=== PATIENT | female | born 1945 | race Caucasian/White ===

== ENCOUNTER 2024-12-19 10:14 | Inpatient (IN) | payer MEDICARE ==
[~2024-12-19] VITALS: Ht 172.7 cm; Wt 80.8 kg
[~2024-12-19 10:14] MED LIST: ACETAMINOPHEN650 M2 PO; ALORA1 EAC1 TD; AMITRIPTYLINE H50 MG PO; DOCUSATE SODIU250 MG PO; GABAPENTIN300 MG PO; HYDROCHLOROTHIA25 MG PO; LO-DOSE ASPIRIN81 MG PO; LOVASTATIN40 MG PO; MOTRIN800 MG PO; NIFEDIPINE ER30 MG PO; PERCOCET 5-3251 EACH PO; POTASSIUM GLUC500 MG PO; SENOKOT-S TABL1 EACH PO; SERTRALINE HCL100 MG PO; THERA-D2000 UNIT PO; VITAMIN D31000 UNI1 PO; [UNRECOGNIZED DRUG - OTHER] PO
--- OUTSIDE RECORDS SUMMARY | 2024-12-19 10:16 | XMS ---
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 [place] VISIT COUNT (12 MO.) [address] TOTAL 6 NOTE: Visits indicate total known visits. ED/UCC VISIT TRACKING (12 MO.) 12/19/2024 10:15 [facility] TYPE: Emergency COMPLAINT: - CHEST PAIN 12/19/2024 07:20 [facility] TYPE: Emergency COMPLAINT: - CHEST PAIN DIAGNOSES: - CHEST PAIN 06/09/2024 08:15 [facility] [place] TYPE: Emergency DIAGNOSES: - Elevation of levels of liver transaminase levels - Encounter for issue of repeat prescription - Fatty (change of) liver, not elsewhere classified - Other specified diseases of anus and rectum - RECTAL PAIN 06/08/2024 08:44 [facility] [place] TYPE: Emergency DIAGNOSES: - Anal fissure, unspecified - Other specified diseases of anus and rectum - stomach pain 06/04/2024 10:01 [facility] TYPE: Emergency COMPLAINT: - ABD PAIN DIAGNOSES: - ABD PAIN 02/04/2024 09:37 [facility] TYPE: Emergency DIAGNOSES: - Acute maxillary sinusitis, unspecified - COVID-19 - CONGESTION AND HEADACHE INPATIENT VISIT TRACKING (12 MO.) 06/04/2024 10:01 [facility] TYPE: Medical Surgical DIAGNOSES: - Generalized abdominal pain - Noninfective gastroenteritis and colitis, unspecified [email or web address]
[2024-12-19] MEDS ORDERED: HYDROmorphone HCL 1 MG/ML SYR IV ONE (10:30)
[2024-12-19] MEDS ORDERED: SODIUM CHLORIDE 0.9% 500 ML IV PRN (10:30)
[2024-12-19 10:36] LABS: BASOPHILS 0.4 % (0.1-1.2); EOSINOPHILS 0.2 % (0.7-5.8); LYMPHOCYTES 9.7 % (19.3-51.7); MCH 22.4 PG (25.6-32.2); MCHC 30.8 g/dL (32.2-35.5); MCV 72.8 fL (79.4-94.8); MONOCYTES 3.9 % (4.7-12.5); NEUTROPHILS 85.2 % (34.0-71.1); RBC 4.41 M/uL (3.93-5.22)
[2024-12-19 10:47] LABS: INR 1.03 (0.80-1.30); PROTIME 13.0 Sec (11.2-14.2)
[2024-12-19 10:55] LABS: ALT (SGPT) 16.0 U/L (14-59); AST (SGOT) 14.0 U/L (15-37); GLOMERULAR FILTRATION RATE,EST 52.0 mL/min (>60); PROTEIN, TOTAL 8.2 g/dL (6.4-8.2); UREA NITROGEN 18.0 mg/dL (7-18)
[2024-12-19] MEDS ORDERED: GABAPENTIN800 MG PO (11:01)
[2024-12-19] MEDS ORDERED: SEVOFLURANE 250 ML BTL INH ONE (12:00)
[2024-12-19] MEDS ORDERED: PROCHLORPERAZINE EDISYLATE 10 MG/2 ML VIAL IV ONE (12:30)
[2024-12-19] MEDS ORDERED: HYDROmorphone HCL 1 MG/ML SYR IV PRN ×3 (12:30→17:30)
[2024-12-19] MEDS ORDERED: PIPERACILLIN/TAZOBACTAM 4.5 GM in SODIUM CHLORIDE 0.9% 100 ML IV ONE (13:30)
[2024-12-19] MEDS ORDERED: DEXTROSE 5% - LACTATED RINGERS 1,000 ML IV SCH ×3 (13:30→17:30)
[2024-12-19] MEDS ORDERED: ACETAMINOPHEN 325 MG TAB PO PRN ×2 (15:00→17:30)
--- NOTE | 2024-12-19 15:45 | NUR ---
THIS RN TO ED ROOM 10 TO TRANSPORT PATIENT. REPORT RECEIVED FROM ED NURSE SON. PATIENT TRANSPORTED IN STRETCHER TO HOSPITAL FLOOR, TRANSFERS HERSELF WITH SUPERVISION ONLY INTO HOSPITAL BED. PATIENT IS STEADY ON HER FEET. IVF INFUSING TO RIGHT AC WNL. PATIENT HAS MULTIPLE FAMILY MEMBERS PRESENT. THIS RN REMAINS IN ROOM TO COMPLETE ADMISSION.
--- NOTE | 2024-12-19 16:12 | NUR ---
MD MELTON IN TO ASSESS AND VISIT PATIENT. ALL QUESTIONS AND CONCERNS ANSWERED AND ADDRESSED. THIS RN REMAINS IN ROOM FOR ADMISSION.
[2024-12-19 16:14] VITALS: BP 157/78
[2024-12-19] MEDS ORDERED: DULOXETINE HCL30 MG PO (16:19)
[2024-12-19] MEDS ORDERED: ATORVASTATIN CA40 MG PO (16:20)
--- NOTE | 2024-12-19 16:28 | NUR ---
MD PRESENT ON THE FLOOR AT THIS TIME, VERBAL TO MAKE PATIENT NPO AT MIDNIGHT, ABLE TO HAVE CLEARS AT THIS TIME. ORDERS INPUT. PRIMARY RN NOTIFIED AND UPDATED. TELEMETRY #2 PLACED ON PATIENT. FAMILY IN ROOM WITH PRIMARY RN AT THIS TIME.
--- NOTE | 2024-12-19 16:50 | NUR ---
ADMISSION COMPLETED. PATIENT'S FAMILY MEMBERS LEAVE. PATIENT REQUESTS TO USE THE RESTROOM, VOIDS IN THE BEDSIDE COMMODE AND REQUESTS A PULL-UP. PULL UP PROVIDED, PATIENT PROVIDES HER OWN LA-CARE. PATIENT IS PLACED ON TELE #2, IVF CONTINUES INFUSING TO RIGHT AC WNL - IVF PREVIOUSLY SCANNED AND HUNG IN ED. PATIENT DENIES PAIN AT THIS TIME. DENIES NAUSEA. ORIENTED TO ROOM AND CALL LIGHT AND VERBALIZES UNDERSTANDING. PATIENT RESTING QUIETLY AT THIS TIME. BED IN LOWEST POSITION.
--- NOTE | 2024-12-19 17:09 | NUR ---
INFORMED PER MANDATE RETAIL SERVICE MERCHANDISER, COLONOSCOPY SCHEDULED TOMORROW FOR 729. PRIMARY RN NOTIFIED AND UPDATED. ORDERS FOR RT UPDATED FOR INPATIENT STATUS, PT RECEIVING DILAUDID AND CONTINUOUS PULSE OXIMETRY WARRANTED.
[2024-12-19] MEDS ORDERED: MIRALAX119 GM PO (17:11)
--- NOTE | 2024-12-19 17:18 | NUR ---
MED REC COMPLETE
[2024-12-19] MEDS ORDERED: PANTOPRAZOLE SODIUM 40 MG/10 ML VIAL IV SCH (17:30)
[2024-12-19] MEDS ORDERED: ACETAMINOPHEN 650 MG SUPP PR PRN (17:30)
[2024-12-19] MEDS ORDERED: PROCHLORPERAZINE EDISYLATE 10 MG/2 ML VIAL IV PRN (17:30)
[2024-12-19] MEDS ORDERED: ENOXAPARIN SODIUM 40 MG/0.4 ML SYR SUB-Q SCH (17:39)
--- NOTE | 2024-12-19 17:41 | NUR ---
DECLARES TIME OF WITH THIS RN AND SPIRITUAL CARE PRESENT.
[2024-12-19] MEDS ORDERED: DULOXETINE HCL 30 MG CAP PO SCH (17:42)
[2024-12-19] MEDS ORDERED: ATORVASTATIN 40 MG TAB PO SCH (17:43)
[2024-12-19] MEDS ORDERED: POTASSIUM CHLORIDE 20 MEQ/15 ML CUP PO ONE (17:45)
[2024-12-19] MEDS ORDERED: POLYETHYLENE GLYCOL 3350 BOTTLE PO ONE (17:45)
--- NOTE | 2024-12-19 17:48 | NUR ---
PATIENT FAMILY MEMBERS ARRIVE AND ARE STOPPED IN DIAZ PRIOR TO ENTERING PATIENT'S ROOM. FAMILY NOTIFIED OF PATIENT'S BY THIS RN AND ORDER PICKER/ASSEMBLERMD NOTIFIED OF FAMILY ARRIVAL HE IS TRYING TO NOTIFY BY TELEPHONE. MD ENTERS ROOM WITH FAMILY AND PATIENT, EXPRESSES CONDOLENCES. FAMILY REMAINS IN ROOM WITH PATIENT.
[2024-12-19 18:06] VITALS: BP 137/57
--- NOTE | 2024-12-19 18:58 | NUR ---
PATIENT IS IN BED AND TEARFUL, REPORTS SHE IS FEELING VERY ANXIOUS. THERAPEUTIC COMMUNICATION PROVIDED. PATIENT REMAINS TEARFUL AND ANXIOUS. MD MELTON NOTIFIED AND GIVES VERBAL ORDER FOR ONE TIME DOSE OF 5MG PO DIAZEPAM. ORDER VERIFIED WITH READBACK AND PLACED.
[2024-12-19] MEDS ORDERED: diazePAM 5 MG TAB PO ONE (19:00)
--- NOTE | 2024-12-19 19:15 | NUR ---
REPORT RECEIVED FROM DAYSHIFT RN. PATIENT SITTING UP AT BEDSIDE, TEARFUL. TALKED ABOUT PLAN FOR THE NIGHT, RESPIRATIONS EVEN AND UNLABORED. CALL LIGHT IN REACH
--- NOTE | 2024-12-19 19:50 | NUR ---
PRN NAUSEA MEDICATION GIVEN PER ORDER. PATIENT DRY HEAVING AND REPORTING INCREASED NAUSEA. ASSESSMENT COMPLETE. PATIENT TO BSC AND BACK TO BED WITHOUT DIFFICULTY. PATIENT REPORTS ANXIETY IS IMPROVING. SHE DENIES ANY NEEDS, CALL LIGHT IN REACH. GIVEN FIRST BOWEL PREP BOTTLE PER ORDER.
[2024-12-19 20:32] VITALS: BP 153/78
--- NOTE | 2024-12-19 20:34 | NUR ---
DIRECT MAIL MANAGER OBTAINED VITALS AND I&O. WARM BLANKET PROVIDED. PT STATES NO FURTHER NEEDS AT THIS TIME. CALL LIGHT WITHIN REACH.
[2024-12-19] MEDS ORDERED: GABAPENTIN 400 MG CAP PO SCH (21:00)
[2024-12-19] MEDS ORDERED: NIFEdipine XL 30 MG TAB PO SCH (21:00)
[2024-12-19] MEDS ORDERED: AMITRIPTYLINE HCL 25 MG TAB PO SCH (21:00)
[2024-12-19] MEDS ORDERED: PIPERACILLIN/TAZOBACTAM 4.5 GM in SODIUM CHLORIDE 0.9% 100 ML IV SCH ×2 (22:00)
--- NOTE | 2024-12-19 22:08 | NUR ---
SCHEDULED MEDICATIONS ADMINISTERED PER ORDER. PATIENT REPORTS HER ANXIETY IS BEGINNING TO IMPROVE. RESPIRATIONS ARE EVEN AND UNLABORED. SHE IS SETTLING INTO BED. DENIES ANY OTHER NEEDS, CALL LIGHT IN REACH.
--- NOTE | 2024-12-19 23:19 | NUR ---
ROUNDED ON PATIENT, PATIENT RESTING WITH EYES CLOSED, RESPIRATIONS EVEN AND UNLABORED. IVF AND MEDICATION CONTINUING WITHOUT DIFFICULTIES. NO FURTHER NEEDS, CALL LIGHT IN REACH.
[2024-12-20] VITALS (20 sets, daily range): BP systolic 115–176; BP diastolic 43–78
--- NOTE | 2024-12-20 01:39 | NUR ---
PATIENT CONTINUING TO ATTEMPT TO FINISH BOWEL PREP BOTTLES, HAS YET TO HAVE A BOWEL MOVEMENT. ON LAST BOTTLE OF BOWEL PREP AT THIS TIME. IVF AND IV MED CONTINUING TO INFUSE WITHOUT DIFFICULTY, CONSISTENT REMINDERS TO PATIENT TO KEEP ARM STRAIGHT. VS OBTAINED AND RECORDED. INTAKE AND OUTPUT DOCUMENTED. PATIENT DENIES FURTHER NEEDS, CALL LIGHT IN REACH.
--- NOTE | 2024-12-20 02:15 | NUR ---
PATIENT RESTING, IV MEDICATION COMPLETE, IVF CONTINUING TO INFUSE PER ORDER. RESPIRATIONS EVEN AND UNLABORED. CPOX AT BEDSIDE. NO NEEDS, CALL LIGHT IN REACH
--- NOTE | 2024-12-20 04:10 | NUR ---
IN ROOM TO ASSESS PATIENT, PATIENT BOWEL TONES ACTIVE. PATIENT HAD BEEN SLEEPING, BED IS SOILED WITH BOWEL MOVEMENT. RN WOKE PATIENT, PATIENT UP TO BSC WITH PHP PROGRAMMER, BOWEL MOVEMENT LIQUID, BROWN IN COLOR. FULL BED CHANGE, NEW BRIEF, NEW SOCKS, NEW GOWN ON PATIENT. PATIENT CLEANED AND BACK IN BED. IVF CONTINUING TO INFUSE PER ORDER. PATIENT DENIES FURTHER NEEDS. CALL LIGHT IN REACH.
[2024-12-20 05:27] LABS: BASOPHILS 0.3 % (0.1-1.2); EOSINOPHILS 0.6 % (0.7-5.8); LYMPHOCYTES 11.9 % (19.3-51.7); MCH 22.2 PG (25.6-32.2); MCHC 29.5 g/dL (32.2-35.5); MCV 75.1 fL (79.4-94.8); MONOCYTES 8.9 % (4.7-12.5); NEUTROPHILS 78.2 % (34.0-71.1); RBC 3.70 M/uL (3.93-5.22)
[2024-12-20 05:42] LABS: ALT (SGPT) 20.0 U/L (14-59); AST (SGOT) 17.0 U/L (15-37); GLOMERULAR FILTRATION RATE,EST 66.0 mL/min (>60); PROTEIN, TOTAL 6.8 g/dL (6.4-8.2); UREA NITROGEN 13.0 mg/dL (7-18)
--- NOTE | 2024-12-20 05:50 | NUR ---
DIRECTOR OF CONSTRUCTION OBTAINED VITALS AND I&O. PT STATED NEED TO USE BATHROOM. DIRECTOR OF CONSTRUCTION 1PA TO BSC. PT HAD BM. DIRECTOR OF CONSTRUCTION AND RN ASSISTED PT INTO CLENA BRIEF. PT NOW BACK IN BED. PT STATES NO FURTHER NEEDS AT THIS TIME. CALL LIGHT WITHIN REACH.
--- NOTE | 2024-12-20 06:23 | NUR ---
TC TO DR. MELTON REGARDING PATIENT BOWEL PREP AND BOWEL MOVEMENT STATUS. NEW ORDERS RECEIVED. PROVIDER PLANS TO DELAY SURGERY UNTIL THIS AFTERNOON.
[2024-12-20] MEDS ORDERED: MAGNESIUM CITRATE 300 ML BTL PO ONE (06:30)
--- NOTE | 2024-12-20 07:33 | NUR ---
UR CLINICAL REVIEW: 2 MN FOR VERSALUS- PER POST OFFICE MANAGER MEETS INPT BOWEL PERFORATION WITH NEED FOR IV ABX MEDICARE FLAQUITA INPT 12/19/24 @ 3556 ORDER MATCHES REG NO AUTH REQUIRED PER MEDICARE GUIDELINES DISCHARGE TO HOME PENDING TREATMENT NEED AND COLONOSCOPY RESULTS
--- NOTE | 2024-12-20 07:40 | NUR ---
REPORT RECEIVED FROM JAYDA FITZGERALD. MEDICATION ADMINISTERED, SEE MAR. PATIENT REQUESTS USING MEL REY CNA ASSISTS.
--- NOTE | 2024-12-20 07:49 | NUR ---
PATIENT IN BED AT THIS TIME. POND SAWYER ASSISTED PATIENT TO BEDSIDE COMMODE AND RN ALIZE ASSISTED PATIENT BACK TO BED. CALL LIGHT WITHIN REACH, NO FURTHER NEEDS AT THIS TIME.
--- NOTE | 2024-12-20 07:49 | NUR ---
PATIENT WAS IN BED AT THIS TIME, AND NEEDED ASSISTANCE TO THE COMMODE, PATIENT HAD A BOWL MOVEMENT. QUARTZ ORIENTATOR ASSISTED PATIENT BACK TO BED, SHE REFUSED GOING TO HER CHAIR CAUSE SHE WASNT FEELING WELL. CALL LIGHT WITH IN REACH AND NOTHING ELSE NEEDED AT THIS TIME.
--- NOTE | 2024-12-20 08:00 | NUR ---
MEDICATION ADMINISTERED, SEE MAR. PATIENT COMPLAINS OF PAIN IN BOTH AC IVs AND BOTH ARE LEAKING. BOTH IVs REMOVED, NEW IV PLACED TO PATIENT'S LEFT WRIST. PATIENT REQUESTS USING THE BSC, VOIDS AND HAS A SMALL LIQUID BROWN BOWEL MOVEMENT. PATIENT ALMOST COMPLETED DRINKING THE MAGNESIUM CITRATE. PATIENT COMPLAINS OF MILD TAILBONE PAIN AND IS ASSISTED TO LAY ON HER LEFT SIDE IN THE BED WITH A PILLOW TUCKED BEHIND HER. PATIENT IS MILDLY TEARFUL AND REPORTS THAT SHE IS FEELING ANXIOUS AND "ABSOLUTELY EXHAUSTED". THERAPEUTIC COMMUNICATION PROVIDED. PATIENT CONTINUES SIPPING ON WATER AND MAG CITRATE AT THIS TIME. NO REQUESTS, CALL LIGHT AND PERSONAL BELONGINGS IN REACH, BSC AT BEDSIDE WITH TOILET PAPER IN EASY REACH.
--- NOTE | 2024-12-20 09:15 | NUR ---
ASSESSMENT COMPLETE. PATIENT UP TO USE BSC, REQUIRES ASSISTANCE FOR LA-CARE SHE STATES "I AM JUST GETTING WAY TOO TIRED". PRN PAIN MEDICATION ADMINISTERED FOR PATIENT'S TAILBONE PAIN AND HEADACHE. PATIENT RETURNS TO BED AND ATTEMPTS TO NAP. NO OTHER REQUESTS, CALL LIGHT AND PERSONAL BELONGINGS IN REACH.
[2024-12-20] MEDS ORDERED: METOCLOPRAMIDE HCL 10 MG/2 ML SDV IV ONE (09:30)
--- NOTE | 2024-12-20 09:33 | NUR ---
PATIENT IN BED A THIS TIME. TANISHA GABRIEL AND TANISHA REY CHANGED PATIENTS LINENS. WAFFLE MATTRESS PLACED. CALL LIGHT WITHIN REACH, NO FURTHER NEEDS AT THIS TIME.
--- NOTE | 2024-12-20 10:00 | NUR ---
INTO SEE PATIENT. PERSONAL HEALTH INFORMATION REVIEWED. PATIENT LIVES IN A HOUSE WITH 3 STEPS INTO. DENIES ANY DIFFCULTY DOING THEM. PATIENT HAS A WALKER AT HOME BUT DOES NOT USE IT YET. PATIENT DOES NOT DRIVE BUT SPOUSE DOES. SHE LIVES WITH SPOUSE NATALIE. NO OXYGEN OR CPAP. PATIENT DENIES DIFFCULTY PAYING UTLITIES OR OBTAINING. NO CM NEEDS AT THIS TIME.
--- NOTE | 2024-12-20 10:56 | NUR ---
PATIENT IN CHAIR AT THIIS TIME. THIS FINISHING RANGE FEEDER ASSISTED PATIENT TO BEDSIDE COMMODE AND THEN ASSISTED PATIENT BACK TO CHAIR. CALL LIGHT WITHIN REACH, NO FURTHER NEEDS AT THIS TIME.
--- NOTE | 2024-12-20 11:28 | NUR ---
PATIENT IS UP IN RECLINER AND HAS A VISITOR IN HER ROOM. REPORTS SHE NO LONGER HAS A HEADACHE AND THE PRN PAIN MEDICATION PREVIOUSLY ADMINISTERED WAS "VERY HELPFUL". PATIENT IS WANTING TO KNOW WHEN SHE WILL BE GETTING HER COLONOSCOPY, SHE IS LOOKING FORWARD TO GETTING IT OVER WITH. NO REQUESTS AT THIS TIME, CALL LIGHT AND PERSONAL BELONGINGS IN REACH.
--- NOTE | 2024-12-20 11:45 | NUR ---
PATIENT IN BED AT THIS TIME. LUMBER PILER ASSISTED PATIENT FROM CHAIR TO BED. CALL LIGHT WITHIN REACH, NO FURTHER NEEDS AT THIS TIME.
--- NOTE | 2024-12-20 12:29 | NUR ---
PATIENT'S IN VISITING. PATIENT USES RESTROOM AND HAS MEDIUM AMOUNT OF BROWN LIQUID STOOL. ALL LIQUIDS REMOVED AT THIS TIME. PATIENT AMBULATES WITH SUPERVISION ONLY AND RETURNS TO BED. NO OTHER REQUESTS, CALL LIGHT AND PERSONAL BELONGINGS IN REACH.
--- NOTE | 2024-12-20 12:53 | NUR ---
MD MELTON UPDATED ON PATIENT'S STOOL AND CONSENT STILL NEEDING TO BE FILLED OUT AND SIGNED. VERBALIZES UNDERSTANDING.
--- NOTE | 2024-12-20 13:35 | NUR ---
PER ANESTHESIOLOGY - MD KATIUSKA INFORMED THAT THE SOONEST HE WOULD DO SURGERY WAS 1445, PT HAD BEEN SIPPING ON HER MG CITRATE STILL ON/OFF. INFORMED VIA PHONE OF THE PLAN. PRIMARY RN NOTIFIED UPDATED.
--- NOTE | 2024-12-20 14:16 | NUR ---
PATIENT AMBULATES TO RESTROOM AND HAS LIQUID STOOL, PROVIDES HER OWN LA-CARE AND CHANGES HER PULL-UP. PATIENT'S ARRIVES AND BRINGS PATIENT HER GLASSES AND HER TABLET WITH DAIRY TECHNICIAN. PATIENT AMBULATES BACK TO BED. VS AND I&Os RECORDED. MEDICATION ADMINISTERED, SEE MAR. PATIENT HAS NO COMPLAINTS OF PAIN OR DISCOMFORT AT THIS TIME. CALL LIGHT AND PERSONAL BELONGINGS IN REACH.
[2024-12-20] MEDS ORDERED: LIDOCAINE HCL 2% 5 ML SDV ONE (14:51)
--- NOTE | 2024-12-20 15:14 | NUR ---
MD MELTON COMPLETES CONSENT WITH PATIENT IN HER ROOM. PATIENT AMBULATES TO STRETCHER WITH CHILANGO, SURGERY RN. PATIENT IS NOW OFF THE FLOOR AT THIS TIME.
[2024-12-20] MEDS ORDERED: GLUCAGON,HUMAN RECOMBINANT 1 MG/ML VIAL ONE (15:29)
--- NOTE | 2024-12-20 16:16 | NUR ---
12/20/24 1616 Trinity Rangel 1558-PT ARRIVES TO PACU, VIA STRETCHER, PT NOT RESPONISVE TO VERBAL OR TACTILE STIMULI, RESTING ON LT SIDE, VSS ON 6L VIA MASK, RR EVEN AND UNLABORED. 1608-PT AWAKENS ON, TITRATED TO RA, VS REMAIN STABLE, PT DENIES PAIN OR NAUSEA, PT ENCOURAGED TO PASS GAS.
[2024-12-20] MEDS ORDERED: POTASSIUM CHLORIDE 20 MEQ/15 ML CUP PO ONE (16:30)
[2024-12-20] MEDS ORDERED: LACTATED RINGER'S 1,000 ML IV SCH (16:30)
--- NOTE | 2024-12-20 16:42 | NUR ---
PATIENT RETURNS FROM COLONOSCOPY ON STRETCHER, PATIENT ASSISTED TO SHUFFLE FROM STRETCHER TO HOSPITAL BED. VS OBTAINED. PATIENT REQUESTS BSC, PATIENT VOIDS AND HAS SMALL LIQUID STOOL. PATIENT DOES HER OWN LA-CARE, PULL-UP PROVIDED. PATIENT RETURNS TO BED. CPOX PLACED. IVF INFUSING WNL. CALL LIGHT IN REACH, PATIENT DENIES PAIN OR NAUSEA AND HAS NO REQUESTS AT THIS TIME.
[2024-12-20] MEDS ORDERED: FUROSEMIDE 20 MG/2 ML VIAL IV ONE ×2 (16:45→20:15)
[2024-12-20 17:27] LABS: ABO O; RH POSITIVE
[2024-12-20 17:38] LABS: ABO O; ANTIBODY SCREEN NEGATIVE; IS CROSSMATCH COMPATIBLE; RH POSITIVE
--- NOTE | 2024-12-20 17:38 | NUR ---
VS OBTAINED. PATIENT IS RESTING IN BED, REPORTS SHE IS FEELING COLD. WARM BLANKET PROVIDED. PATIENT EXPRESSES FEELING NERVOUS REGARDING GETTING BLOOD. EDUCATION AND THERAPEUTIC COMMUNICATION PROVIDED. PATIENT PROVIDED WITH OJ AND COFFEE REQUESTED. CALL LIGHT IN REACH, NO OTHER REQUESTS.
--- NOTE | 2024-12-20 18:02 | NUR ---
FIRST UNIT OF PACKED RED CELLS BEGINS INFUSING AT 1800. SECOND CHECK COMPLETED WITH JAYAD BEDOYA. PATIENT RESTING IN BED WITH BLOOD INFUSING TO RIGHT HAND, IVF AND IV ABX INFUSING INTO RIGHT FOREARM. THIS RN REMAINS IN ROOM.
--- NOTE | 2024-12-20 18:15 | NUR ---
15 MINUTE VS OBTAINED AND RECORDED. PATIENT RESTING IN BED LISTENING TO MUSIC, NO COMPLAINTS, NO REACTION AT THIS TIME. INFUSION RATE INCREASED TO 140ML/HR. PATIENT HAS NO REQUESTS AT THIS TIME, CALL LIGHT AND PERSONAL BELONGINGS IN REACH.
--- NOTE | 2024-12-20 18:42 | NUR ---
PATIENT USES BSC, VOIDS, AND PROVIDES HER OWN LA-CARE. PATIENT HAS FRIEND VISITING AT THIS TIME. NO COMPLAINTS. TRANSFUSION RATE INCREASED TO 170ML/HR. PATIENT TOLERATING WELL. NO REQUESTS, CALL LIGHT AND PERSONAL BELONGINGS IN REACH.
--- NOTE | 2024-12-20 19:10 | NUR ---
REPORT RECEIVED FROM DAYSVTFT RN. PATIENT RESTING IN BED, VISITNG WITH FRIEND. RESPIRATIONS ARE EVEN AND UNLABORED. IVF CONTINUING TO INFUSE PER ORDER, 1ST UNIT OF BLOOD INFUSING WITHOUT DIFFICULTY, DOUBLE CHECKED WITH JAYDA HERRMANN. PATIENT REPORTS SHE HAS NO NEEDS AT THIS TIME. CALL LIGHT IN REACH.
--- NOTE | 2024-12-20 19:30 | NUR ---
IV PUMP ALARMING, RN WALKED INTO ROOM, PATIENT BEING ASSISTED ON THE COMMODE BY JAYDA BEDOYA. THIS RN ASSISTED PATIENT BACK TO BED. VS OBTAINED AND RECORDED. SETTLED INTO BED. RESPIRATIONS EVEN AND UNLABORED. PATIENT DENIES ANY NEEDS, CALL LIGHT IN REACH.
--- NOTE | 2024-12-20 20:10 | NUR ---
CALL LIGHT ANSWERED. PT NEEDED TO USE BATHROOM. B OPERATOR SBA TO BSC. PT VOIDED AND ASSISTED BACK TO BED. PT STATES NO FURTHER NEEDS AT THIS TIME. CALL LIGHT WITHIN REACH.
[2024-12-20] MEDS ORDERED: POTASSIUM CHLORIDE 20 MEQ in LACTATED RINGER'S 1,000 ML IV SCH (20:15)
[2024-12-20] MEDS ORDERED: POTASSIUM CHLORIDE 10 MEQ in LACTATED RINGER'S 1,000 ML IV SCH ×2 (20:15→20:30)
--- NOTE | 2024-12-20 20:28 | NUR ---
1ST UNIT OF BLOOD COMPLETE AT THIS TIME VS OBTAINED. PATIENT RESTING IN BED COMFORTABLY WITH SO AT BEDSIDE. IV SALINE LOCKED. UP TO BSC PER REQUEST. RESPIRATIONS EVEN AND UNLABORED. BACK TO BED WITHOUT DIFFICULTY. CALL LIGHT IN REACH.
--- NOTE | 2024-12-20 21:32 | NUR ---
PATIENT UP TO BSC. GIVEN SCHEDULED MEDS PER ORDER. VS OBTAINED AND RECORDED. INTAKE AND OUTPUT DOCUMENTED. PATIENT DENIES SOB, DENIES CHILLS. REQUESTING PRN TYLENOL FOR HEADACHE. SHE STATES NO FURTHER NEEDS AT THIS TIME, CALL LIGHT IN REACH.
--- NOTE | 2024-12-20 22:20 | NUR ---
PT C/O PAIN, HEADACHE, ABDOMEN AND BUTTOCKS. MEDICATED WITH TYLENOL
--- NOTE | 2024-12-20 23:09 | NUR ---
2ND UNIT OF PRBC STARTED PER ORDER. VS OBTAINED AND RECORDED PRIOR TO START. BLOOD VERIFIED WITH KIRK Julio RN. RESPIRATIONS ARE EVEN AND UNLABORED. RN SITTING AT BEDSIDE WITH PATIENT.
--- NOTE | 2024-12-20 23:48 | NUR ---
ROUNDED ON PATIENT, PATIENT RESTING, RESPIRATIONS EVEN AND UNLABORED. WOKE TO RN ENTERING ROOM, REPORTS SHE IS FEELING WELL WITH NO COMPLAINTS OF SOB OR CHEST PAIN. DENIES DIZZINESS. BLOOD INFUSION CONTINUING TO INFUSE. CALL LIGHT IN REACH.
[2024-12-21] VITALS (10 sets, daily range): BP systolic 99–141; BP diastolic 53–85
--- NOTE | 2024-12-21 00:37 | NUR ---
CALL LIGHT ANSWERED. PT NEEDED TO USE BATHROOM. HEALTH NAVIGATOR SBA TO BSC. PT VOIDED AND ASSISTED BACK TO BED. PT STATES NO FURTHER NEEDS AT THIS TIME. CALL LIGHT WITHIN REACH.
--- NOTE | 2024-12-21 01:08 | NUR ---
ROUNDED ON PATIENT, IV INFUSIONS CONTINUING TO INFUSE WITHOUT DIFFICULTY. RESPIRATIONS EVEN AND UNLABORED. PATIENT RESTING WITH EYES CLOSED. NO NEEDS IDENTIFIED, CALL LIGHT IN REACH
--- NOTE | 2024-12-21 01:51 | NUR ---
BLOOD INFUSION COMPLETE AT 0140. VS OBTAINED AND RECORDED. PATIENT ASSISTED UP TO BSC WITH ASSISTANCE OF FOOD SERVICE SALES REPRESENTATIVES. PATIENT REPORTS SHE IS FEELING WELL WITH NO COMPLAINTS. BACK TO BED WITHOUT DIFFICULTY. IV FLUSHED AND SALINE LOCKED. PATIENT NPO, VERBALIZED UNDERSTANDING. CALL LIGHT IN REACH.
[2024-12-21 05:25] LABS: BASOPHILS 0.4 % (0.1-1.2); EOSINOPHILS 1.5 % (0.7-5.8); LYMPHOCYTES 21.1 % (19.3-51.7); MCH 23.7 PG (25.6-32.2); MCHC 31.0 g/dL (32.2-35.5); MCV 76.5 fL (79.4-94.8); MONOCYTES 6.9 % (4.7-12.5); NEUTROPHILS 69.8 % (34.0-71.1); RBC 4.93 M/uL (3.93-5.22)
[2024-12-21 05:37] LABS: GLOMERULAR FILTRATION RATE,EST 59.0 mL/min (>60); UREA NITROGEN 4.0 mg/dL (7-18)
--- NOTE | 2024-12-21 06:02 | NUR ---
SURGICAL WIPE DOWN COMPLETE, FRESH GOWN AND LINENS ON BED AND ON PATIENT. SCHEDULED MEDICATION ADMINISTERED PER ORDER. BOWEL TONES ACTIVE. PATIENT DECLINES ANY NEEDS, VOIDED WHILE UP USING BSC. CALL LIGHT IN REACH. IVF CONTINUING TO INFUSE PER ORDER. NO FURTHER NEEDS, CALL LIGHT IN REACH
--- NOTE | 2024-12-21 07:14 | NUR ---
Pt report received from JAYDA Perales. Pt is A&O, resting supine in bed. Pt states she is "nervous". White board updated. Pt denies needs at this time. Side rails up x3, call light in reach. IV Zosyn and IVF running.
[2024-12-21] MEDS ORDERED: ACETAMINOPHEN 1,000 MG/100 ML VIAL ONE (07:44)
[2024-12-21] MEDS ORDERED: SUCCINYLCHOLINE IN 0.9% NACL 200 MG/10 ML SYRINGE ONE (07:44)
[2024-12-21] MEDS ORDERED: ROCURONIUM BROMIDE 50 MG/5 ML SYR ONE ×2 (07:44→09:49)
[2024-12-21] MEDS ORDERED: LIDOCAINE HCL 2% 20 MG/ML VIAL INJ ONE (07:44)
[2024-12-21] MEDS ORDERED: SUGAMMADEX SODIUM 200 MG/2 ML ML ONE (07:44)
[2024-12-21] MEDS ORDERED: MAGNESIUM SULFATE 1 GM/2 ML VIAL ONE (07:44)
[2024-12-21] MEDS ORDERED: DEXAMETHASONE SOD PHOS 4 MG/ML VIAL ONE ×4 (07:44→13:53)
[2024-12-21] MEDS ORDERED: fentaNYL citrate 100 MCG/2 ML VIAL ONE (07:44)
[2024-12-21] MEDS ORDERED: LIDOCAINE HCL 2% 5 ML SDV ONE ×2 (07:44→13:55)
[2024-12-21] MEDS ORDERED: KETAMINE in NS 50 MG/5 ML SYR ONE (07:45)
--- NOTE | 2024-12-21 07:49 | NUR ---
PATIENT IN BED AT THIS TIME. JAYDA PEARSON IN PATIENTS ROOM AT THIS TIME GETTING PATIENT READY FOR SURGERY. COMPUTER FORENSICS ANALYST CHARTED HOURLY ROUNDS. CALL LIGHT WITHIN REACH, NO FURTHER NEEDS AT THIS TIME.
--- NOTE | 2024-12-21 08:00 | NUR ---
In with pt in response to call light to use the BSC. Pt is SBA, RN disconnected SCDs, pt transferred, SBA to BSC for small liquid/soft BM and void (unable to measure as it was mixed in the hat with stool). Pt back to bed, SCDs reconnected. Side rails up, call light in reach.
--- NOTE | 2024-12-21 08:05 | NUR ---
RN X RAY and Braulio from anesthesia in with pt to transfer pt to Day Surgery at this time.
[2024-12-21] MEDS ORDERED: NOREPINEPHRINE BITARTRATE 4 MG/4 ML AMP ONE (08:29)
[2024-12-21] MEDS ORDERED: HEParin SOD (PORCINE) 5,000 UNIT/ML SDV ONE (08:44)
[2024-12-21] MEDS ORDERED: LACTATED RINGER'S 1,000 ML IV ONE (08:57)
--- NOTE | 2024-12-21 10:05 | NUR ---
Pt's family members are in room. Update from OR provided.
[2024-12-21] MEDS ORDERED: SODIUM CHLORIDE 0.9% 20 ML IV ONE ×4 (11:05→13:53)
[2024-12-21] MEDS ORDERED: Ropivacaine HCl 0.5% 30 ML VIAL ONE ×3 (11:05→13:53)
--- NOTE | 2024-12-21 11:27 | EKG ---
[facility] [address] [place], [place] [address] Signed Sinus rhythm with premature supraventricular complexes Nonspecific ST abnormality Abnormal ECG No previous ECGs available Confirmed by Kaitlyn Buck MD ([id number]) on 12/21/2024 11:27:32 AM Electronically Signed By: KAITLYN BUCK MD 12/21/24 1127 PATIENT NAME: AKTERYNA HANDLEY Electrocardiogram DATE OF : 47 PHYSICIAN: KAITLYN BUCK MD REPORT #: [id number] REPORT IS CONFIDENTIAL AND NOT TO BE RELEASED WITHOUT AUTHORIZATION
[2024-12-21] MEDS ORDERED: KETOROLAC TROMETHAMINE 30 MG/ML VIAL ONE (11:35)
[2024-12-21] MEDS ORDERED: fentaNYL citrate 50 MCG/ML SDV IV PRN (11:45)
[2024-12-21] MEDS ORDERED: PROCHLORPERAZINE EDISYLATE 10 MG/2 ML VIAL IV PRN (11:45)
[2024-12-21] MEDS ORDERED: HYDROmorphone HCL 1 MG/ML SYR IV PRN (11:45)
[2024-12-21] MEDS ORDERED: IBLOOD GLUCOSE TEST STRIP 1 EA TEST VI PRN (11:45)
[2024-12-21] MEDS ORDERED: NALOXONE HCL 0.4 MG SYR IV PRN (11:45)
[2024-12-21] MEDS ORDERED: KETOROLAC TROMETHAMINE 15 MG/ML VIAL IV PRN (12:30)
--- NOTE | 2024-12-21 13:00 | NUR ---
REPORT RECIEVED FROM JAYDA PEARSON. PATIENT REMAINS OFF THE FLOOR IN SURGERY AT THIS TIME.
--- NOTE | 2024-12-21 13:13 | NUR ---
12/21/24 1313 Trinity Rangle 1219-PT ARRIVES TO PACU, VIA STRETCHER, RESTING SEMI FOWLERS, PT NOT RESPONSIVE TO NOXIOUS STIMULI, OPA IN PLACE, VSS ON 6L VIA MASK, RR EVEN AND UNLABORED. 1229-PT REACTIVE TO STIMULI, OPA REMAINS IN PLACE, VSS. 1231-PT AWAKENS TO TACTILE AND VERBAL STIMULI, OPA REMOVED AND TITRATED TO RA, VS REMAIN STABLE. 1245-PT APPEARS TO BE UNCONFORTABLE DENIES ABD PAIN AT SURGICAL SIGHT, C/O PAIN AND IRRITATION AT NG IN LT NARE. PT ALSO C/O NAUSEA. 1250-PT GIVEN IV MEDICATION FOR PAIN AND NAUSEA, SEE EMAR. 1300-PT RESTING COMFORTABLY IN BED, AWAKENS TO VOICE BUT FALLS BACK TO SLEEP EASILY, DENIES PAIN OR NAUSEA, VSS ON RA.
[2024-12-21] MEDS ORDERED: MORPHINE SULFATE 1 MG/ML VIAL ONE (13:19)
--- NOTE | 2024-12-21 14:18 | NUR ---
REPORT RECIEVED FROM JAYDA HUSAIN. PATIENT REPORTING 10/10 PAIN.
--- NOTE | 2024-12-21 15:05 | NUR ---
PT RESTING IN BED, DROWSY PAIN /10, PT REPORTS PAIN IS TOLERABLE. PT O2 SATS DROP TO 85-87% ON RA WHILE DOZING. PT PLACED ON 1LNC, SATS MAINTAINED AT 90-91%. NO NEW DRAINAGE ON ABDOMINAL BINDER. NGT TO LIS, RETURN OF CLEAR BROWN FLUID.
--- NOTE | 2024-12-21 16:39 | NUR ---
PATIENT IN BED AT THIS TIME. CARD TENDER CHARTED HOURLY ROUNDS, PATIENT SLEEPING IN BED. CALL LIGHT WITHIN REACH, NO FURTHER NEEDS AT THIS TIME.
--- NOTE | 2024-12-21 16:55 | NUR ---
DR MELTON CALLED FOR ORDER CLARIFICATION. STATES TO KEEP WOLFE IN PATIENT AT THIS TIME, NG TUBE TO INTERMITTENT MEDIUM SUCTION, OKAY FOR SIPS OF WATER FOR PO MEDS, 500MG TYLENOL Q4 SCHEDULED THROUGH NG TUBE, KEEP NG TUBE CLAMPED FOR 1 HOUR AFTER MEDICATION ADMINISTRATION, START D5LR WITH 10 MEQ KCL @ 100ML/HR. WITH NO FURTHER ORDERS AT THIS TIME. CALL ENDED. [employer] REP ASSISTED WITH CEMETERY LABORER.
[2024-12-21] MEDS ORDERED: LACTATED RINGERS IV SCH (17:15)
[2024-12-21] MEDS ORDERED: DEXTROSE 5% IV SCH (17:15)
[2024-12-21] MEDS ORDERED: POTASSIUM CHLORIDE IV SCH (17:15)
[2024-12-21] MEDS ORDERED: ATORVASTATIN 40 MG TAB PO SCH (17:34)
[2024-12-21] MEDS ORDERED: DULOXETINE HCL 30 MG CAP PO SCH (17:35)
--- NOTE | 2024-12-21 17:55 | NUR ---
PATIENT MEDICATED PER EMAR. MEDS WERE VERIFIED WITH PHARMACY AND WERE ABLE TO BE CRUSHED. MEDS ADMINISTERED THROUGH NG TUBE. NG TUBE FLUSHED WITH 40ML OF WATER AND CLAMPED FOR ABSORPTION. IV FLUSHED WITH 10ML OF NS, DRESSING IS INTACT, IV SALINE LOCKED. LEFT WRIST IV CONTINUOUS FLUIDS @ 100ML/HR. PATIENT WITHOUT FURTHER NEEDS AT THIS TIME. CALL LIGHT AND PERSONAL BELONGINGS ARE WITHIN REACH. CPOX AT BEDSIDE.
[2024-12-21] MEDS ORDERED: ACETAMINOPHEN 500 MG TAB PO SCH (18:00)
--- NOTE | 2024-12-21 18:55 | NUR ---
PATIENT NG TUBE PLACED BACK ON SUCTION TO LOW INTERMITTENT PER MD ORDERS. PATIENT REPORTING PAIN INCREASING. BELT GLASS SANDER RN NOTIFIED. PATIENT WITHOUT FURTHER NEEDS AT THIS TIME. CALL LIGHT AND PERSONAL BELONGINGS ARE WITHIN REACH. CPOX AT BEDSIDE.
--- NOTE | 2024-12-21 19:46 | NUR ---
RECEIVED REPORT. GIVEN PRN DILAUDID 0.6MG FOR 8/10 PAIN. NO OTHER NEEDS PRESENTLY.
--- NOTE | 2024-12-21 21:43 | NUR ---
ASSESSMENT, EVENING MEDS. ASSISTED PT WITH BED LINEN CHANGE, PT FEELS DIAPHORETIC. NGT SUCTION PAUSED AFTER MEDS GIVEN. PT REQUESTS CRACKERS, REMINDED OF NPO STATUS. NO OTHER NEEDS, CALL [facility] IN REACH
--- NOTE | 2024-12-21 22:14 | NUR ---
PATIENT IS LAYING IN BED. CATHETER WAS EMPTIED. JAYDA HOLLIS WAS IN ROOM. PATIENTS CALL LIGHT IN REACH AND NO FURTHER NEEDS AT THIS TIME.
--- NOTE | 2024-12-21 23:01 | NUR ---
ATTACHED NGT BACK TO MODERATE INTERMITTENT SUCTION PER ORDER. PT AROUSES, THOUGH EASILY BACK TO SLEEP. NO NEEDS, CALL LIGHT IN REACH
[2024-12-22] VITALS (11 sets, daily range): BP systolic 119–163; BP diastolic 51–98
--- NOTE | 2024-12-22 00:02 | NUR ---
PT RESTING IN BED WITH EYES CLSOED, RISE AND FALL OF CHEST OBSERVED. CALL LIGHT IN REACH
--- NOTE | 2024-12-22 02:38 | NUR ---
PATIENT LAYING IN BED. VITAL SIGNS AND I&OS WERE DONE. PATIENTS GOWN WAS CHANGED. CALL LIGHT IN REACH AND NO FURTHER NEEDS AT THIS TIME.
--- NOTE | 2024-12-22 02:44 | NUR ---
PT ALERT IN BED, DENIES NEEDS FOR NOW. CALL [facility] INREACH
--- NOTE | 2024-12-22 04:12 | NUR ---
PT CALLED IN 04/11 PAIN, SHE REPORTS CAME ON VERY SUDDENLY. GIVEN AVAILABLE PRNS WELL ABBI TYLENOL SHE EARLIER DECLINED. GIVEN ICE PACKS. NO NEW OBSERVED BLEEDING/DRAINAGE. CALL LIGHT IN REACH
--- NOTE | 2024-12-22 04:25 | NUR ---
NOTIFIED MD OF PAIN, GIVEN ORDERS FOR ONE-TIME DOSE OF DILAUDID IV AND ABBI XANAX 0.25MG PO
[2024-12-22] MEDS ORDERED: HYDROmorphone HCL 1 MG/ML SYR IV ONE (04:30)
--- NOTE | 2024-12-22 05:10 | NUR ---
VITALS, GIVEN ABBI ABX AND ONE-TIME DILAUDID DOSE. PT REPORTS PAIN IMPROVING AFTER DOSE. NO OTHER NEEDS, CALL LIGHT IN REACH
[2024-12-22] MEDS ORDERED: ALPRAZolam 0.5 MG TAB PO SCH (06:00)
--- NOTE | 2024-12-22 07:38 | NUR ---
PT AWAKE AND INTERACTIVE AT TIME OF SHIFT REPORT. NG RE-CONNECTED AFTER MEDS. PT AGREES SHE IS COMFORTABLE, DENIES NEEDS OF. 02 TURNED OFF PT CONTINUES TO SAT MID 90'S OXY MASK REMOVED. CALL LIGHT AND NEEDED ITEMS AT BEDSIDE
--- NOTE | 2024-12-22 09:13 | NUR ---
PT RESTING IN BED C/O INCREASEING ABDOMINAL PAIN PRN ADMINISTERED. PT IS SOMEWHAT TEARFUL STATES SHE IS A CRY BABY AND GETS ANXIETY. PT ENCOURAGED THAT SHE HAS MEDS SCHEDULED THROUGHOUT THE DAY FOR THAT. ENGAUGES IN CONVERSATION REDIRECTS EASILY.
--- NOTE | 2024-12-22 09:22 | NUR ---
PT IN BED, REPORTED BEING COLD - GOT PT THREE WARM BLANKETS TO REPLACE THE THREE SHE ALREADY HAD. GOT PT FRESH ICE PACK FOR ABDOMINAL SURGICAL SITE. PT REQUESTED PILLOW TO HOLD ONTO WHEN SHE COUGHS - GOT IT. HELD PT'S HAND WHILE PT'S NURSE GAVE BLOOD THINNER SHOT, PT WAS QUITE EMOTIONAL, SPENT A LOT OF TIME TALKING TO HER AT BEDSIDE. CALL LIGHT WITHIN REACH, PT REPORTED NEEDING NOTHING ELSE AT THIS TIME. LEFT ROOM WHILE PT WAS ON THE PHONE WITH SON.
--- NOTE | 2024-12-22 10:37 | NUR ---
DR MELTON IN TO SEE PT, SON IS PRESENT. PLAN GOING FORWARD DISCUSSED ALL QUESTIONS ANSWERED.
[2024-12-22] MEDS ORDERED: Ropivacaine HCl 0.5% 30 ML VIAL ONE (11:10)
[2024-12-22] MEDS ORDERED: LIDOCAINE HCL 2% 5 ML SDV ONE (11:10)
[2024-12-22] MEDS ORDERED: SODIUM CHLORIDE 0.9% 20 ML IV ONE (11:10)
[2024-12-22] MEDS ORDERED: DEXAMETHASONE SOD PHOS 4 MG/ML VIAL ONE (11:10)
--- NOTE | 2024-12-22 11:29 | NUR ---
ANESTHESIA IS PRESENT DOING A BLOCK FOR PT PAIN CONTROL. FAMILY ARE PRESENT
--- NOTE | 2024-12-22 14:32 | NUR ---
PT UP TO BSC ENCOURAGED AMBULATION WHILE SHE IS ALREADY UP SHE DECLINES, STATES SHE JUST CAN'T.
--- NOTE | 2024-12-22 15:01 | NUR ---
PT CRYING IN PAIN WHEN I ENTERED. I GOT PT'S NURSE. GOT PT A FRESH ICE PACK FOR HER STOMACH. GOT PT WARM BLANKETS. CALL LIGHT WITHIN REACH, PT IS NPO.
--- NOTE | 2024-12-22 15:01 | NUR ---
PT RESTING IN BED AGREES PAIN MEDS WERE EFFECTIVE DENIES NEEDS
--- NOTE | 2024-12-22 15:18 | NUR ---
PT MEDICATED FOR PAIN STATES IT WAS EFFECTIVE. RESTING CALMLY AT THIS TIME DENIES NEEDS OF
--- NOTE | 2024-12-22 18:18 | NUR ---
PT CALLED THE NURSES STATION SAYING SHE IS IN PAIN. I TOLD THE CHARGE NURSE WHO TOLD PT'S NURSE. REFRESHED THE ICE PACK THE PT HAS ON STOMACH. CALL LIGHT WITHIN REACH. PT IN PAIN AND EMOTIONAL.
--- NOTE | 2024-12-22 18:27 | NUR ---
PT AGREES HER ABDOMEN STILL HURTS DESCRIBES IT SHARP AND CONSTANT, SHE STATES THE DIAUDID IS EFFECTIVE BUT TOOK AWHILE TO GET TO WORKING. PT IS VISITING ACTIVELY AT THIS TIME HAS ICE ON HER ABDOMEN AND DENIES NEEDS OF
--- NOTE | 2024-12-22 19:13 | NUR ---
RECEIVED REPORT. PT ALERT IN BED, REPORTS PAIN IS IMPROVED FROM YESTERDAY THOUGH STILL PRESENT. NO NEEDS PRESENTLY. NGT TO MIS. CALL [facility] IN REACH
--- NOTE | 2024-12-22 21:12 | NUR ---
KEEPING CPOX ON PATIENT RECEIVING PAIN MEDS.
--- NOTE | 2024-12-22 21:15 | NUR ---
VITALS, ASSESSMENT, EVENING MEDS. GIVEN PRN DILAUDID. NO OTEHR NEEDS, CALL LGIHT IN REACH
--- NOTE | 2024-12-22 23:34 | NUR ---
GIVEN PRN DILAUDID, CHANGED BED LINENS, REMOVED R IV D/T LEAKING. REPLACED IV FLUID BAG. NO OTHER NEEDS, CALL LIGHT INREACH
[2024-12-23] VITALS (9 sets, daily range): BP systolic 157–179; BP diastolic 69–75
--- NOTE | 2024-12-23 01:33 | NUR ---
GIVEN PRN DILAUDID AND ABBI TYLENOL. CHANGED LINENS AND GOWN AT PT REQUEST. NO OTHER NEEDS, CALL LIGHT IN REACH
[2024-12-23] MEDS ORDERED: LIDOCAINE 2% VISCOUS 6 ML SYR TOP ONE (01:45)
--- NOTE | 2024-12-23 03:54 | NUR ---
PT SLEEPING, THOUGH QUICKLY ROUSABLE. GIVEN PRN DILAUDID FOR 5/10 ABD PAIN. PT NOTES SOME ITCHING AT INCISION SITE, INCISION APPEARS WELL. REASSURED THAT ITCHING CAN BE AN EXPECTED SIGN OF SKIN HEALING. NO OTHER NEEDS, CALL LIGHT IN REACH
--- NOTE | 2024-12-23 04:10 | NUR ---
RESPONDED TO BEEPING CPOX, OBSERVED SPO2 DOWN TO 77%, THEN BACK UP TO 92% ON RA. APPLIED 2LNC, SPO2 AT 99%. NO OTHER NEEDS, CALL LIGHT INREACH
[2024-12-23 05:39] LABS: BASOPHILS 0.2 % (0.1-1.2); EOSINOPHILS 0.1 % (0.7-5.8); LYMPHOCYTES 17.4 % (19.3-51.7); MCH 23.7 PG (25.6-32.2); MCHC 30.5 g/dL (32.2-35.5); MCV 77.7 fL (79.4-94.8); MONOCYTES 5.8 % (4.7-12.5); NEUTROPHILS 76.3 % (34.0-71.1); RBC 4.35 M/uL (3.93-5.22)
[2024-12-23 05:48] LABS: GLOMERULAR FILTRATION RATE,EST 70.0 mL/min (>60); UREA NITROGEN 9.0 mg/dL (7-18)
--- NOTE | 2024-12-23 05:53 | NUR ---
PT CRYING IN 1010 PAIN. GIVEN PRN DILAUDID IV WELL AM MEDS. PAIN BEGINNING TO IMPROVE WHILE IN ROOM. SPICE MILLER IN ROOM TAKING VITALS. NO OTHER NEEDS, CALL LIGHT IN REACH
--- NOTE | 2024-12-23 06:22 | NUR ---
PT RESTING WITH EYES CLOSED, RISE AND FALL OF CHEST OBSERVED. CALL LIGHT IN REACH
--- NOTE | 2024-12-23 06:59 | NUR ---
PT REQUESTS ADDITIONAL PAIN MEDICATION. GIVEN PRN TORADOL TO GOOD EFFECT. NO OTHER NEEDS, CALL LIGHT IN REACH
--- NOTE | 2024-12-23 07:21 | NUR ---
PT RESTING IN BED WATCHING TV AT TIME OF SHIFT REPORT. RATES HER PAIN 12/10 STATING "IT'S NOT TOO BAD WHILE I'M LAYING HERE STILL" AGREES SHE WANTS DILAUDID WHEN IT IS AVAILABLE TO HER. CONTINUES NPO NG TO DOROTHY.
--- NOTE | 2024-12-23 09:06 | NUR ---
STAFF REPORT PT IS TEARFUL AND C/O PAIN. PT RESTING SUPINE DISTRACTS EASILY WITH CONVERSATION. REMAINED IN THE ROOM CHARTING AND VISITING WITH PT 15 MINUTES OR MORE, NO FURTHER C/O. DISCUSSED WITH PT WHEN NEXT MEDS WILL BE GIVEN AND SHE AGREES THAT WILL WORK FOR HER.
--- NOTE | 2024-12-23 09:38 | NUR ---
PT RESTING EYES CLOSED APPEARS RELAXED CALL LIGHT IN REACH
--- NOTE | 2024-12-23 09:57 | NUR ---
HOURLY ROUNDING. PATIENT ROOM IS TIDY AND A TOWEL HAS BEEN GIVEN TO WIPE PATIENT FACE. NO REQUEST FROM PATIENT AT THIS TIME. BOARD HAS BEEN UPDATED AND CALL LIGHT HAS BEEN PLACED WITHIN REACH
--- NOTE | 2024-12-23 10:21 | NUR ---
DR MELTON IN TO SEE PT DISCUSSED PLAN OF CARE ALL QUESTIONS ANSWERED
--- NOTE | 2024-12-23 11:08 | NUR ---
PT SON IN TO VISIT SHE IS VISITING ACTIVELY DENIES NEEDS AT THIS TIME
--- NOTE | 2024-12-23 12:03 | NUR ---
HOURLY ROUNDING. PATIENT APPEARED TO BE HOT, I OFFERED HER FAN, FAN WAS GIVEN. NO FURTHER REQUEST FROM PATIENT AT THIS TIME
--- NOTE | 2024-12-23 14:54 | NUR ---
PT UP TO THE CHAIR, SITTING UPRIGHT DECKLINES TO RECLINE. AGREES SHE IS REASONALBLY COMFORTABLE DENIES FURTHER NEEDS. CALL LIGHT IN LAP
[2024-12-23] MEDS ORDERED: GABAPENTIN 400 MG CAP PO SCH (15:00)
--- NOTE | 2024-12-23 15:16 | NUR ---
PT CONTINUES UP IN THE CHAIR VISITING WITH A FRIEND APPEARS UPBEAT AND TALKATIVE. HAIR SHAMPOO'D AND COMBED BY STAFF
--- NOTE | 2024-12-23 15:24 | NUR ---
I/S INTRODUCED PT IS ABLE TO USE IT APPROPRIATELY WITH COACHING. AGREES TO USE IT FREQUENTLY THROUGHOUT THE DAY
--- NOTE | 2024-12-23 16:34 | NUR ---
PT RETURNS TO RESTING IN BED AGREES TIME IN THE CHAIR WAS GOOD BUT STATES IT MADE HER VERY TIRED.
--- NOTE | 2024-12-23 18:07 | NUR ---
PT IV ALARMING WAKING PT UP SHE BECOMES TEARFUL THEN C/O PAIN. PAIN MEDS ADMINISTERED STAYED AND TALKED WITH PT SHE DISTRACTS AND BEGINS ENGAUGING IN CONVERSATION AND LAUGHING. PT RESTING NOW DENIES FURTHER NEEDS.
--- NOTE | 2024-12-23 19:36 | NUR ---
RECEIVED REPORT. PT RESTING IN BED, WAKES EASILY. HOB FLAT, EDUCATED PT ABOUT NEED FOR ELEVATION D/T NG TUBE. PT REPORTS HER ARTHRITIS IN HER BACK MAKES THIS DIFFICULT. PUT BED IN REVERSE TRANDELENBERG SO HOB IS ELEVATED WITHOUT BENDING BACK. NO OTHER NEEDS PRESENTLY, CALL LIGHT IN REACH
--- NOTE | 2024-12-23 20:02 | NUR ---
VITALS, ASSESSMENT. GIVEN PRN TORODOL AND DILAUDID FOR 9/10 PAIN WELL ABBI MEDS. PAIN IMPROVING WHILE IN ROOM. NO NEEDS PRESENTLY, CALL JAD RAMON
--- NOTE | 2024-12-23 21:09 | NUR ---
REATTACHED NGT AFTER MEDS DELIVERED 1 HOUR AGO. PT REPORTS PAIN SIGNIFICANTLY IMPROVING, STILL 6/10. DECLINES NEEDS FOR NOW. CALL LIGHT IN REACH
--- NOTE | 2024-12-23 22:24 | NUR ---
GIVEN PRN DILAUDID FOR 10/10 PAIN. PT REPORTS PAIN HAD MILDLY IMPROVED TO 9/10 AFTER ALL PREVIOUS MEDS GIVEN, BUT HAS SINCE WORN OFF. PT ALSO UNABLE TO SWALLOW NIFEDIPIME. CALL LIGHT IN REACH
--- NOTE | 2024-12-23 22:32 | NUR ---
CALLED MD, INFORMED OF PT 9-04/11 PAIN FOLLOWING ALL AVAILABLE MEDICATIONS AND PRN DILAUDID EVERY 2 HOURS CONSISTENTLY. INFORMED MD THAT PAIN CONTROL IS WORSE TONIGHT, PT HAD A NERVE BLOCK YESTERDAY BUT NOT TODAY. ALSO ALERTED THAT PT UNABLE TO SWALLOW NIFEDIPIME. ORDER FOR ONE-TIME DOSE OF XANAX 0.25MG WELL CHLOROPREP SPRAY.
[2024-12-23] MEDS ORDERED: LIDOCAINE HCL 4% 50 ML BTL TOP PRN (22:45)
[2024-12-23] MEDS ORDERED: ALPRAZolam 0.5 MG TAB PO ONE (22:45)
--- NOTE | 2024-12-23 23:19 | NUR ---
GIVEN ONE-TIME DOSE XANAX 0.25MG PER ORDER. PT REPORTS PAIN MILDLY IMPROVED, CURRENTLY 02/09. STILL NOT ABLE TO SWALLOW MEDS. APPLIED ICE PACK TO [facility]BDOMEN. [facility]
[2024-12-23] MEDS ORDERED: phenoL 177 ML SPRAY MT PRN (23:30)
[2024-12-24] VITALS (7 sets, daily range): BP systolic 148–182; BP diastolic 72–94
--- NOTE | 2024-12-24 00:41 | NUR ---
GIVEN PRN DILAUDID WELL CHLOROPREP THROAT SPRAY. REATTACHED NGT AFTER HOLDING FOR PO MEDS. PT REPORTS PAIN AT 8/10. STILL DECLINES NIFEDIPIME. GIVEN WARM BLANKETS, CALL LIGHT IN REACH
--- NOTE | 2024-12-24 02:21 | NUR ---
PT WITH 10/10 PAIN, CRYING "I DON'T KNOW WHAT TO DO, I DON'T KNOW WHAT TO DO". GIVEN PRN DILAUDID, TORADOL, AND ABBI TYLENOL. CALL LIGHT IN REACH
--- NOTE | 2024-12-24 02:30 | NUR ---
NOTIFIED MD OF 10/10 PAIN UNCONTROLLED WITH CURRENT PAIN REGIMEN AND PT IS CRYING AUDIBLY, HEARD IN HALLWAY. ORDER FOR ATIVAN IV 1MG ONCE AND LIDOCAINE PATCH.
[2024-12-24] MEDS ORDERED: LORazepam 2 MG/ML VIAL IV ONE (02:45)
[2024-12-24] MEDS ORDERED: LIDOCAINE HCL 4% 1 EACH PATCH TD SCH (02:45)
--- NOTE | 2024-12-24 02:58 | NUR ---
GIVEN IV 1MG ATIVAN ONCE AND APPLIED LIDOCAINE PATCH. PT STATES "I JUST DON'T KNOW WHY THIS IS HAPPENING TO ME. I FEEL LIKE GIVING UP.". PROVIDED THERAPEUTIC LISTENING, VALIDATED PT PAIN, AND REASSURED. RE-APPLIED NGT TO SUCTION. CALL LIGHT IN REACH
--- NOTE | 2024-12-24 03:03 | NUR ---
PT DESATTING TO 87 AFTER IV ATIVAN, THOUGH STILL ALERT. APPLIED OXYMAX 2L, SPOT UP TO 96%.
--- NOTE | 2024-12-24 04:22 | NUR ---
GIVEN PRN IV DILAUDID 0.6MG FOR 8/10 PAIN. NO OTHER NEEDS, CALL LIGHT IN REACH
--- NOTE | 2024-12-24 06:34 | NUR ---
VITALS, I&OS, AM MEDS INCLUDING PRN DILAUDID FOR 8/10 PAIN. PT ALERT, MILDLY SLOW TO RESPOND BUT STILL ORIENTED X4, LIKELY FROM LACK OF SLEEP + PREVIOUS ATIVAN. NO NEEDS, CALL LIGHT IN REACH
--- NOTE | 2024-12-24 07:34 | NUR ---
REPORT RECEIVED FROM JAYDA HOLLIS. PT REPORTEDLY UP MOST OF THE NIGHT WITH POOR PAIN CONTROL.
--- NOTE | 2024-12-24 09:18 | NUR ---
PT NOW UNABLE TO SWALLOW PILLS. CHOKED AFTER TWICE TRYING WITH COACHING. PT FEELING DEFEATED AND DOWN THIS MORNING. RATES PAIN HIGH. WASHED FACE AND HANDS WITH WARM CLOTH. FAN IN PLACE. NG OFF ATT, WAS ABLE TO SWALLOW ONE TAB.
--- NOTE | 2024-12-24 09:53 | NUR ---
IN BED, TEARFUL. STATES HER MOUTH/THROAT ARE VERY SORE. WILL RETURN TO SPEAK WITH PATIENT WHEN SHE IS FEELING A LITTLE BETTER. WHEN ASKED, STATES SHE HAS NOTIFIED NURSING STAFF OF PAIN.
--- NOTE | 2024-12-24 11:33 | NUR ---
CALLED DR KELLY REGARDING CONCERNS OF PAIN CONTROL, BP AND NO BT.
[2024-12-24] MEDS ORDERED: HYDROmorphone HCL 1 MG/ML SYR IV PRN (11:45)
[2024-12-24] MEDS ORDERED: DIATRIZOATE MEGLU/DIATRIZO SOD 15 ML BTL PO ONE ×2 (12:00→13:00)
--- NOTE | 2024-12-24 12:26 | NUR ---
PT CRYING IN PAIN. ADMININSTERED DILAUDID PER ORDER AND VERBAL FROM DR KELLY TO GO AHEAD AND START NEW DOSE NOW. PT FACE VISIBLY RELAXED. VS OBTAINED AND BP IS IMPROVED FROM EARLIER TODAY.
--- NOTE | 2024-12-24 12:46 | NUR ---
GASTROGRAFIN ADMINISTERED THROUGH NG TUBE. PT TOLERATED. NG CLAMPED. PT APPEARS MORE COMFORTABLE AFTER SECOND DOSE OF PRN PAIN MED.
--- NOTE | 2024-12-24 13:20 | NUR ---
PATIENT OFF THE FLOOR TO IMAGING FOR CT SCAN.
--- NOTE | 2024-12-24 14:13 | NUR ---
PT BACK FROM CT, JAYDA LEVY HOOKED BACK TO NG AND IV. REPORTS PT PAINFUL.
--- NOTE | 2024-12-24 14:48 | NUR ---
HOURLY ROUNDING. PATIENT VISITING WITH FRIEND. PATIENT SEEMS MORE RELAX WHEN SHE HAS A VISITOR. VISTOR ENCOURAGED SLEEP TO PATIENT. NO REQUEST FROM PATIENT AT THIS TIME. CALL LIGHT HAS BEEN PLACED WITHIN REACH
[2024-12-24] MEDS ORDERED: ACETAMINOPHEN 1,000 MG/100 ML VIAL IV PRN (15:00)
--- NOTE | 2024-12-24 16:43 | NUR ---
pt significant other in room on couch. PT APPEARS MORE COMFORTABLE. TRYING TO NAP.
[2024-12-24] MEDS ORDERED: LABETALOL HCL 20 MG/4 ML VIAL IV PRN (17:00)
[2024-12-24] MEDS ORDERED: LORazepam 2 MG/ML VIAL IV PRN (17:00)
--- NOTE | 2024-12-24 18:30 | NUR ---
WOLFE REMOVED AND PT UP TO COMMODE 20 MINUTES LATER TO TRY TO PEE. UNABLE TO GO. PT VERY PAINFUL. GIVEN OFIRMEV AND DILAUDID. CHANGED NOSE PIECE ON NG TUBE.
--- NOTE | 2024-12-24 18:34 | NUR ---
BEDDING CHANGED WHILE ON COMMODE.
--- NOTE | 2024-12-24 19:41 | NUR ---
RECEIVED REPORT. PT RESTING IN BED, EASILY WAKES WHEN ENTER ROOM. PROVIDED WARM BLANKETS, NO OTHER NEEDS PRESENTLY. CALL LIGHT INREACH
[2024-12-24] MEDS ORDERED: LIDOCAINE PATCH REMOVAL 1 EA TD SCH (21:00)
--- NOTE | 2024-12-24 21:06 | NUR ---
PT HEARD CRYING FROM HALLWAY. PT IN 04/11 PAIN. GIVEN PRN ATIVAN AND DILAUDID, PT WITH VISIBLE RELIEF FROM PAIN WHILE IN ROOM. EVENING MEDS GIVEN EXCEPT NIFEDIPIME, PT UNABLE TO SWALLOW. VITALS TAKEN, ASSESSMENT. [facility]
--- NOTE | 2024-12-24 22:45 | NUR ---
PT IN BED WTIH EYES CLOSED, RISE AND FALL OF CHEST OBSERVED. CALL LIGHT IN REACH
--- NOTE | 2024-12-24 23:27 | NUR ---
PT RESTING IN BED WITH EYES CLOSED, RISE AND FALL OF CHEST OBSERVED, CALL LIGHT IN REACH
--- NOTE | 2024-12-24 23:39 | NUR ---
RESPONDED TO AUDIBLE MOANING. PT IN 01/09 PAIN. GIVEN PRN TORODOL AND ICE PACK. NO OTHER NEEDS, CALL LIGHT IN REACH
[2024-12-25] VITALS (10 sets, daily range): BP systolic 145–185; BP diastolic 71–90
--- NOTE | 2024-12-25 01:05 | NUR ---
PT RESTING IN BED WITH EYES CLOSED, RISE AND FALL OF CHEST OBSERVED. CALL LIGHT INREACH
--- NOTE | 2024-12-25 01:39 | NUR ---
GIVEN PRN ATIVAN FOR ANXIETY. PT MILDLY DISORIENTED, FORGETFUL OF TIME, DATE, AND PLACE, BUT QUICKLY REORIENTED AND CORRECTLY ID'D SELF AND SITUATION. DENIES CURRENT PAIN. CALL LIGHT IN REACH
--- NOTE | 2024-12-25 03:31 | NUR ---
PT WITH BLADDER SCAN OF 306ML. GIVEN PRN DILAUDID 1.5MG, THEN TRANSFERRED PT TO BEDSIDE COMMODE 2PA. PT PAIN QUICKLY UP T0 10/10 DESPITE PAIN MEDICATION, PT UNABLE TO STAND AND DOUBLED OVER IN PAIN. BROUGHT BACK TO BED WITH 2PA. STARTED IV ACETAMINOPHEN. CALL LGT IN REACH
--- NOTE | 2024-12-25 04:10 | NUR ---
NOTIFIED PT UNABLE TO VOID. ORDER FOR STRAIGHT CATH.
[2024-12-25] MEDS ORDERED: LIDOCAINE 2% VISCOUS 6 ML SYR TOP ONE ×2 (04:15→13:45)
[2024-12-25 05:19] LABS: BASOPHILS 0.6 % (0.1-1.2); EOSINOPHILS 4.7 % (0.7-5.8); LYMPHOCYTES 21.4 % (19.3-51.7); MCH 23.7 PG (25.6-32.2); MCHC 30.4 g/dL (32.2-35.5); MCV 78.1 fL (79.4-94.8); MONOCYTES 5.9 % (4.7-12.5); NEUTROPHILS 67.1 % (34.0-71.1); RBC 4.93 M/uL (3.93-5.22)
[2024-12-25 05:30] LABS: GLOMERULAR FILTRATION RATE,EST 58.0 mL/min (>60); UREA NITROGEN 9.0 mg/dL (7-18)
--- NOTE | 2024-12-25 05:40 | NUR ---
GIVEN PRN ATIVAN, THEN PERFORMED INTERMITTENT CATHETER FOR 500ML VOLUME. PT WITH NO OUTPUT SINCE 1800 PRIOR. PT VERY TEARY. CULTURE MANAGER ASSISTED WITH PT POSITIONING. CALL LIGHT IN REACH
--- NOTE | 2024-12-25 06:57 | NUR ---
RESPONDED TO PT CRYING OUT IN PAIN, GIVEN PRN TORODOL TO GOOD EFFECT. [facility]
--- NOTE | 2024-12-25 07:43 | NUR ---
Patient in bed moaning, she reports she is very painful. Admin dilaudid 1.5mg iv at this time. IV site is patent. Patient has an NG, patent, notable dark green gastric content. Patient denies passing flatus, no nausea. Patient's head of bed elevated. Bed alarm intact.
[2024-12-25] MEDS ORDERED: POTASSIUM CHLORIDE 40 MEQ,LIDOCAINE HCL 1% 40 MG in DEXTROSE 5% 250 ML IV ONE (08:30)
--- NOTE | 2024-12-25 08:49 | NUR ---
Ativan 1mg iv admin at this time for anxiety. Patient repositioned with supervisor irrigation assist.
--- NOTE | 2024-12-25 09:10 | NUR ---
TOOK VITALS FOR PT'S NURSE WHO WAS IN THE ROOM. GOT PT WARM BLANKET, PT SPOKE VERY LITTLE. CALL LIGHT WITHIN REACH.
--- NOTE | 2024-12-25 10:37 | NUR ---
RYAN from Dr. Morales to change ativan dose to 0.5mg, no change to frequency.
[2024-12-25] MEDS ORDERED: LORazepam 2 MG/ML VIAL IV PRN (10:45)
--- NOTE | 2024-12-25 11:39 | NUR ---
PT HAD NOT URINATED FOR OVER 6 HOURS - WE ATTEMPTED A BEDPAN, THE PT DID NOT URINATE, THE PT'S NURSE PERFORMED A BLADDER SCAN, APPROX. 240 ML URINE FROM THE SCAN - NURSE REPORTED TO PHYSICIAN. CHANGED THE SHEETS/DRAW SHEET/DRISS UNDER PT. REPOSITIONED PT TOWARD THE RIGHT RIDE, GOT PT WARM PACK FOR LOWER ABDOMEN AREA. CALL LIGHT WITHIN REACH OF PT. TWO VISITORS IN PT'S ROOM. NURSE AND METAL BONDING WORKER LEFT ROOM AFTER TURNING DOWN THE LIGHTS.
--- NOTE | 2024-12-25 13:35 | NUR ---
Patient unable to void. Bedside bladder scan is 475ml. Patient is confused. Touched base with Dr. Morales-marissa orders for urine to be sent r/o uti and to place indwelling adam catheter for urine retention.
--- NOTE | 2024-12-25 14:11 | NUR ---
Adam catheter placed using sterile technique. Immediate return of clear yellow urine in adam bag. Patient has no further acute needs. Call light within reach.
--- NOTE | 2024-12-25 14:19 | NUR ---
WASHED PT'S FACE, HGANDS AND LA AREA - FOLLOWING THE INSERTION, BY HER NURSE, OF A NEW WOLFE. COMFORT CARE FOR THE PT.
[2024-12-25 14:20] LABS: BLOOD/HGB, URINE NEGATIVE (Negative); KETONE, URINE NEGATIVE (Negative); LEUK ESTERASE, URINE NEGATIVE (negative); NITRITE, URINE NEGATIVE (negative)
--- NOTE | 2024-12-25 14:26 | NUR ---
THIS VITAL READING WAS TAKEN ABOUT 15 MINUTES FOLLOWING THE WOLFE INSERTION BY THE PT'S NURSE. PT HAD A PARTIAL BED BATH AND WAS MORE RELAXED. CALL LIGHT WITHIN REACH, PATIENT HAS EYES CLOSED AND LOOKS RELAXED.
[2024-12-25 14:35] LABS: BACTERIA, URINE RARE /hpf (negative); CRYSTALS, URINE NONE SEEN (0-1+); EPITHELIAL CELLS, URINE SQUAMOUS 1+ /lpf (0-1+)
[2024-12-25 14:36] LABS: CASTS, URINE NONE SEEN \\lpf; REFLEX CULTURE, URINE No (No)
--- NOTE | 2024-12-25 15:54 | NUR ---
PRN PAIN MEDICATION ADMINISTERED, SEE MAR. PO MEDICATION ADMINISTERED VIA NG TUBE WITH 60ML FLUSH OF WATER. PATIENT HAS CONTINUOUS MOAN AND GROAN WITH CONSTANT GRIMACE. IV MEDICATIONS INFUSING WNL TO LEFT FOREARM. CALL LIGHT IN REACH. BED IN LOWEST POSITION.
--- NOTE | 2024-12-25 16:08 | NUR ---
Patient in bed resting, she intermittently wakes and moans. Patient is verbalizing she is painful, alert to self only. Patient has family at bedside visiting. Plan of care udpated with patient and family.
--- NOTE | 2024-12-25 17:40 | NUR ---
Patient reports abdominal pain, she is unable to provide pain scale level. Admin dilaudid 1.5mg iv at this time. NG remains intact/patent, MIWS, contined green gastric drainage. IV remains patent. Abdomen is soft to touch.
--- NOTE | 2024-12-25 18:12 | NUR ---
PT IS AWAKE, BUT MOANING AND SPEAKING BUT NOT MAKING SENSE WITH HER WORDS. PT IS NPO. PT HAS THE TV ON. CALL LIGHT IS WITHIN REACH. PT REPORTS NOT NEEDING ANYTHING ELSE AT THIS TIME.
--- NOTE | 2024-12-25 18:16 | NUR ---
CHANGED PT'S BLANKETS AND TOP SHEET. REPOSITIONED PT A LITTLE, MORE WEIGHT ON RIGHT SIDE. GOT PT HEAT PACK FOR MIDDLE/LOWER ABDOMEN - WRAPPED IT IN A TOWEL AND PLACED IT ON TOP OF PT'S GOWN.
--- NOTE | 2024-12-25 18:28 | NUR ---
THIS RESTAURANT MANAG[employer] INTER[employer]IP EMPTIED THE PT'S NG CONTAINER AFTER DOCUMENTING OUTPUT. THIS RESTAURANT MANA[employer] INTER[employer] EMPTIED THE PT'S GARBAGE AND CLEANED UP HER ROOM, MOVED HER GLASSES AND TV REMOTE TO WITHIN PT'S REACH. CALL LIGHT WITHIN REACH WELL.
--- NOTE | 2024-12-25 19:35 | NUR ---
PATIENT RESTING IN BED. RESPIRATIONS EVEN AND UNLABORED. BED ALARM ON. CALL LIGHT IN REACH.
--- NOTE | 2024-12-25 22:16 | NUR ---
PATIENT HEARD CRYING FROM ROOM. THIS RN AND DIRECTOR PLANS TO ROOM. PATIENT STATES SHE IS PAINFUL BUT UNABLE TO TELL THIS RN WHERE THE PAIN IS. PRN PAIN MEDICATION ADMINISTERED. PATIENT STILL CRYING IN ROOM. PATIENT UNABLE TO TELL THIS RN WHY SHE IS CRYING. THIS RN ASKED PATIENT IF SHE WAS HAVING ANXIETY. PATIENT STATED "YES". WHEN THIS RN LEFT THE ROOM, THE PATIEN TOLD DIRECTOR PLANS DANIELA THAT SHE WAS SCARED. THIS RN ASKED PATIENT IF SHE REMEMBERED WHERE SHE WAS, PATIENT NOT ABLE TO TELL THIS RN WHERE SHE IS. PATIENT UNABLE TO STATE NAME AND . PRN ANXIETY MEDICATION ADMINISTERED. VS AND I&Os OBTIANED AND RECORDED. SCHEDULED MEDICATIONS ADMINISTERED VIA NG TUBE. NG TUBE CLAMPED AT THIS TIME. PATIENT APPEARS TO BE COMFORTABLE AT THIS TIME. WARM BLANKETS PROVIDED. BED ALARM ON. SCDs IN PLACE. ASSESSMENT COMPLETE. ABD BINDER IN PLACE. NO FURTHER NEEDS. CALL LIGHT IN REACH.
--- NOTE | 2024-12-25 23:32 | NUR ---
PATIENT HEARD CRYING OUT FROM ROOM. THIS RN TO ROOM. THIS RN ASKED IF PATIENT WAS PAINFUL AND PATIENT STATED "YES" BUT UNABLE TO TELL THIS RN WHERE SHE WAS PAINFUL. THIS RN ASKED PATIENT "IS IT YOUR TUMMY?" PATIENT STATED "YES". PRN PAIN MEDICATION ADMINISTERED. PATIENT APPEARS MORE RELAXED AFTER PAIN MEDICATION. CPOX REMAINS IN PLACE. NO FURTHER NEEDS. BED ALARM ON. CALL LIGHT IN REACH.
[2024-12-26] VITALS (9 sets, daily range): BP systolic 148–179; BP diastolic 75–87
--- NOTE | 2024-12-26 00:25 | NUR ---
THIS RN ROUNDING ON PATIENT. PATIENT RESTING IN BED, APPEARS COMFORTABLE AND SNORING. 02 SAT 95% ON RA. NO FURTHER NEEDS. BED ALARM ON. CALL LIGHT IN REACH.
--- NOTE | 2024-12-26 02:24 | NUR ---
PATIENT HEARD CRYING IN ROOM. PATIENT UNABLE TO TELL THIS RN WHAT IS WRONG. PATIENT ONLY CRYING AND MOANING IN BED. THIS RN ASKED IF PAITENT WAS IN PAIN AND PATIENT STATED "YES". PRN PAIN MEDICATION ADMINISTERED. PATIENT REPOSITIONED IN BED WITH PILLOWS UNDER BILAT HIPS. THIS RN AND SR. MANAGER CORPORATE COMMUNICATIONS TRIED TO OBTAINED PATIENT BP, BUT PATIENT NOT COOPERATING AND THIS MADE PATIENT APPEAR EXTREMELY ANXIOUS. VS AND I&Os OBTAINED AND RECORDED, WITHOUT BP. TELE REMAINS IN PLACE. ABD BINDER REMAINS IN PLACE. NO DRAINAGE FROM ABD INSICION NOTED. PATIENT APPEARS TO BE MORE COMFORTABLE AFTER PAIN MEDICATION ADMINISTRATION. PATIENT RESTING WITH EYES CLOSED. RESPIRATIONS EVEN AND UNLABORED. CALL LIGHT IN REACH.
[2024-12-26 05:25] LABS: BASOPHILS 0.4 % (0.1-1.2); EOSINOPHILS 5.4 % (0.7-5.8); LYMPHOCYTES 20.1 % (19.3-51.7); MCH 24.0 PG (25.6-32.2); MCHC 30.4 g/dL (32.2-35.5); MCV 78.9 fL (79.4-94.8); MONOCYTES 5.2 % (4.7-12.5); NEUTROPHILS 68.4 % (34.0-71.1); RBC 5.21 M/uL (3.93-5.22)
[2024-12-26 05:36] LABS: GLOMERULAR FILTRATION RATE,EST 70.0 mL/min (>60); UREA NITROGEN 10.0 mg/dL (7-18)
--- NOTE | 2024-12-26 06:24 | NUR ---
PATIENT RESTING IN BED, MOANING IN PAIN. PRN PAIN MEDICATION ADMINISTERED. PATIENT UNABLE TO TELL ME WHERE HER PAIN IS LOCATED. VS AND I&Os OBTIANED AND RECORDED. WOLFE CATH CARE PROVIDED PER PROTOCOL. PATIENT HAS NO FURTHER NEEDS AT THIS TIME. CALL LIGHT IN REACH. BED ALARM ON.
--- NOTE | 2024-12-26 07:30 | NUR ---
RECIEVED REPORT FROM JAYDA MARTIN. PT AWAKE, MOANING IN BED. THIS RN ATTEMPTS TO ASSESS PAIN LEVEL WITH PT, PT DOES NOT STATE LEVEL OF PAIN OR LOCATION. PT STATES "YES" WHEN ASKED IF HAVING PAIN. PT ROLLED TO SIDE, ABDOMINAL BINDER REPOSITIONED, LIDOCAINE PATCH PLACED. PT SAT UP >45 DEGREES, PT ANSWERS "YES" WHEN ASKED IF SHE CAN TAKE HER PO MEDICATIONS. PO MEDICATIONS GIVEN, PT SWALLOWS ONCE WITH WATER, AFTER THIS PT REFUSES TO DRINK WATER, STATES "NO" WHEN ASKED TO DRINK WATER AND SWALLOW PILLS. TWO PO MEDICATIONS REMAIN IN PT'S MOUTH AT THIS POINT, THIS RN ATTEMPTS TO USE SUCTION TO REMOVE MEDICATION FROM PT MOUTH, MEDICATION DISOLVING AT THIS TIME AND UNABLE TO BE SUCTIONED. TUBE AND MANIFOLD BUILDER UPDATED, AGREES TO ALLOW MEDICATION TO DISOLVE IN PT MOUTH PT HEAD IS ELEVATED AND AIRWAY IS NOT OBSTRUCTED. CLOTHS ROLLED AND GIVEN TO PT PT HAS HANDS CLENCHED SHUT. NO FURTHER NEEDS OBSERVED AT THIS TIME, CALL LIGHT WITHIN REACH. BED ALARM ON FOR SAFETY.
--- NOTE | 2024-12-26 08:12 | NUR ---
entered pt's room, changed white board. nurses were trying to medicate pt. call light within reach of pt.
--- NOTE | 2024-12-26 08:20 | NUR ---
SPIRITUAL CARE STAFF AT THE BEDSIDE. CALL LIGHT WITHIN REACH, BED ALARM ON FOR SAFETY.
--- NOTE | 2024-12-26 08:45 | NUR ---
TALKED WITH MATEUS PATIENT COUSIN ([phone]) HERE TO VISIT PATIENT.
[2024-12-26] MEDS ORDERED: MAGNESIUM SULFATE 2 GM/50 ML BAG IV ONE (09:00)
--- NOTE | 2024-12-26 09:15 | NUR ---
IMAGING CALLS THIS RN TO COME TO CT ROOM TO ASSIST WITH PT. THIS RN TO CT ROOM WITH PT. PT HAD JUST HAD EMESIS, THIS RN RECONNECTS NGT TO WALL SUCTION. IMAGING COMPLETE AT THIS TIME, PT BEING TRANSFERRED BACK TO MED/SURG UNIT BY JAYDA PENALOZA AND FRANK RT.
--- NOTE | 2024-12-26 10:29 | NUR ---
PT RETURNED FROM CT WITH VOMIT ON HER GOWN - THIS SALES SYSTEMS ENGINEER WITH THE HELP OFG A VISITING COUSIN CHANGED HER GOWN, WASHED HER FACE AND NECK, AND CHANGED THE DRISS AND DRAW SHEET UNDER PT. THE PT'S NURSE HAD GIVEN PAIN MEDICATION PRIOR AND PT REPORTED DECREASED PAIN LEVEL CURRENTLY. PT WAS HOOKED UP TO ALL MONITORS AND LEG COMPRESSION DEVICES. CALL LIGHT ON BED WITH PT, PT RESTING CURRENTLY, COUSIN IN ROOM, TV ON.
--- NOTE | 2024-12-26 10:33 | NUR ---
Visited twice since 0800. Steffany not very communicative. Lots of moaning and unsettled body movements. Nurses have been most attentive. Prayed over her and offered words of comfort and strength and healing.
--- NOTE | 2024-12-26 10:46 | NUR ---
NGT TO WALL SUCTION PER ORDER. FAMILY AT THE BEDSIDE. NO CURRENT NEEDS IDENTIFIED. PT ANSWERING YES/NO QUESTIONS AT THIS TIME. CALL LIGHT WITHIN REACH, BED ALARMS ON FOR SAFETY.
--- NOTE | 2024-12-26 11:05 | NUR ---
MD AT THE BEDSIDE DISCUSSING POC WITH PT AND FAMILY. PT STATES "NO" WHEN ASKED IF SHE HAS ANY CURRENT NEEDS. CALL LIGHT WITHIN REACH, BED ALARM ON FOR SAFETY.
[2024-12-26] MEDS ORDERED: LORazepam 2 MG/ML VIAL IV PRN (11:30)
--- NOTE | 2024-12-26 12:35 | NUR ---
DR. KELLY TO BEDSIDE TO DISCUSS POC WITH PT. MD STATES TO CLAMP NGT FOR 4 HOURS AND IF NO NAUSEA THEN DC NGT. PT STATES SHE HAS MINIMAL PAIN, STATES "YES" WHEN ASKED IF ANXIOUS, PT REQUESTS PRN ANXIETY MEDICATION AT THIS TIME, GIVEN. PT STATES "NO" WHEN ASKED IF SHE HAS ANY FURTHER NEEDS AT THIS TIME, CALL LIGHT WITHIN REACH, BED ALARM ON FOR SAFETY.
--- NOTE | 2024-12-26 12:47 | NUR ---
PT IN BED, THE NURSE JUST GAVE PT A MEDICATION FOR ANXIETY. CAME IN AND DISCONNECTED THE NG TUBE, TOLD THE PT THAT IF SHE DOES NOT VOMIT THEN HE CAN TAKE THE NG TUBE OUT - PT SMILED. PT REPORTED NO PAIN IN HER ABDOMEN WHEN THE DOCTOR ASKED. PT ALSO REPORTED TO THIS FIBROUS PLASTERER THAT SHE HAD NO PAIN ON A SCALE OF 0-10. VITALS TAKEN, CHANNEL ON TV CHANGED TO 70'S MUSIC. CALL LIGHT WITHIN REACH OF PT, BED ALARM ON.
--- NOTE | 2024-12-26 13:19 | NUR ---
PT DENIES NAUSEA AT THIS TIME, NO NEEDS STATED AT THIS TIME, CALL LIGHT WITHIN REACH.
--- NOTE | 2024-12-26 14:49 | NUR ---
INTO SEE PATIENT. PATIENT MOANS WHEN I ENTER THE ROOM. LET PATIENT KNOW I WOULD BE CALLING HER SPOUSE. PATIENT AGREEABLE. TALKED WITH ESTRADA SPOUSE STATES HE WILL COME GET HER WHEN SHE IS MEDICALLY CLEARED FOR DISCHARGE. HE STATES HES BEEN DEALING WITH CHRONIC PAIN AND UNABLE TO MAKE IT UP HERE. NO FUTHER CM NEEDS AT THIS TIME.
--- NOTE | 2024-12-26 15:37 | NUR ---
PT DENIES ANY NAUSEA AT THIS TIME. PO MEDICATION GIVEN THROUGH NGT. NGT REMAINS CLAMPED PER ORDER. PT FAMILY AT THE BEDSIDE. PT STATES "NO" WHEN ASKED IF THERE ARE ANY NEEDS AT THIS TIME, CALL LIGHT WITHIN REACH, BED ALARM ON FOR SAFETY.
--- NOTE | 2024-12-26 16:35 | NUR ---
PT DENIES NAUSEA, STATES PAIN IS DECREASED TO 4/10. NG TUBE DC'D PER ORDER PT HAS HAD NG CLAMPED FOR THE PAST 4 HOURS W/O DIFFICULTY. PT REPOSITIONED AND TURNED ONTO LEFT SIDE, PT STATES PAIN HAS INCREASED, DOES NOT STATE NUMBER. PT REQUESTS NEXT AVAILABLE PAIN MEDICATION. CALL LIGHT WITHIN REACH, BED ALARM ON FOR SAFETY.
--- NOTE | 2024-12-26 16:46 | NUR ---
THIS RN CALLS DR. CROCKER REGARDING PT'S PAIN LEVEL INCREASING WITH CARE, MD STATES TO ORDER OFIRMEV IV 1G Q8 PRN. ORDER ENTERED, REPEAT BACK PERFORMED.
[2024-12-26] MEDS ORDERED: ACETAMINOPHEN 1,000 MG/100 ML VIAL IV PRN (17:00)
--- NOTE | 2024-12-26 19:25 | NUR ---
REPORT RECEIVED FROM DAY SHIFT RN. PATIENT RESTING IN BED. RESPIRATIONS EVEN AND UNLABORED. CALL LIGHT IN REACH.
--- NOTE | 2024-12-26 20:30 | NUR ---
PATIENT RESTING IN BED, CRYING. PATIENT APPEARS PAINFUL. PRN PAIN MEDICATION ADMINISTERED. PATIENT REPOSITIONED IN BED. VS AND I&Os OBTAINED AND RECORDED. STUFFED ANIMAL GIVEN TO PATIENT FOR COMFORT. PATIENT HAS NO FURTHER NEEDS. CALL LIGHT IN REACH. BED ALARM ON.
--- NOTE | 2024-12-26 20:52 | NUR ---
PATIENT NOT WILLING TO TRY TO DRINK WATER AT THIS TIME. PATIENT REFUSING. CALL PLACED TO MD CROCKER REGARDING PATIENT NOT ABLE TO TOLERATE SCHEDULED PO MEDICATION. STATED IT IS OK TO HOLD PO MEDICATION. NO NEW ORDERS.
--- NOTE | 2024-12-26 23:06 | NUR ---
PATIENT RESTING IN BED WITH EYES CLOSED. RESPIRATIONS EVEN AND UNLABORED. PATIENT APPEARS COMFORTABLE AT THIS TIME. SCHEDULED IV ABX INFUSING PER ORDER. NEW BAG IV FLUID INFUSING PER ORDER. NO FURTHER NEEDS. CALL LIGHT IN REACH. ABD BINDER IN PLACE.
[2024-12-27] VITALS (11 sets, daily range): BP systolic 138–172; BP diastolic 45–145
--- NOTE | 2024-12-27 00:43 | NUR ---
PATIENT RESTING IN BED, WITH EYES CLOSED. RESPIRATIONS EVEN AND UNLABORED. PRN MEDICATION ADMINISTERED FOR PATIENT COMFORT. NO FURTHER NEEDS. CALL LIGHT IN REACH. BED ALARM ON.
--- NOTE | 2024-12-27 02:22 | NUR ---
PATIENT HEARD FROM ROOM, MOANING/CRYING. PRN PAIN MEDICATION ADMINISTERED. VS AND I&Os OBTAINED AND RECORDED. PATIENT REPOSITIONED IN BED WITH PILLOW UNDER RIGHT HIP. BLE ELEVATED OFF BED. PATIENT SKIN ON COCCYX AND HEELS WNL. NO FURTHER NEEDS AT THIS TIME. BED ALARM ON. CALL LIGHT IN REACH. WOLFE CATH CARE PROVIDED PER PROTOCOL.
--- NOTE | 2024-12-27 03:22 | NUR ---
PATIENT RESTING IN BED ON BACK WITH EYES CLOSED. APPEARS COMFORTABLE. RESPIRATIONS EVEN AND UNLABORED. CALL LIGHT IN REACH.
[2024-12-27 05:27] LABS: BASOPHILS 0.4 % (0.1-1.2); EOSINOPHILS 6.3 % (0.7-5.8); LYMPHOCYTES 26.1 % (19.3-51.7); MCH 23.7 PG (25.6-32.2); MCHC 30.1 g/dL (32.2-35.5); MCV 78.9 fL (79.4-94.8); MONOCYTES 7.0 % (4.7-12.5); NEUTROPHILS 59.7 % (34.0-71.1); RBC 5.06 M/uL (3.93-5.22)
--- NOTE | 2024-12-27 05:42 | NUR ---
PATIENT HEARD MOANING FROM ROOM. PRN PAIN MEDICATION ADMINISTERED. VS AND I&Os OBTAINED AND RECORDED. SCDs IN PLACE. BED ALARM ON. NO FURTHER NEEDS. CALL LIGHT IN REACH.
[2024-12-27 06:01] LABS: ALT (SGPT) 23.0 U/L (14-59); AST (SGOT) 15.0 U/L (15-37); GLOMERULAR FILTRATION RATE,EST 61.0 mL/min (>60); PHOSPHORUS, INORGANIC 3.9 mg/dL (2.5-4.9); PROTEIN, TOTAL 7.2 g/dL (6.4-8.2); TSH, 3RD GENERATION 2.112 uIU/mL (0.358-3.740); UREA NITROGEN 9.0 mg/dL (7-18)
--- NOTE | 2024-12-27 06:22 | NUR ---
PATIENT RESTING IN BED WITH EYES CLOSED. RESPIRATIONS EVEN AND UNLABORED. SCHEDULED IV ABX INFUSING PER ORDER. CALL LIGHT IN REACH. PATIENT REPOSITIONED IN BED.
--- NOTE | 2024-12-27 07:30 | NUR ---
RECIEVED REPORT FROM JAYDA MARTIN. PT LYING IN BED MOANING, WHEN ASKED IF SHE IS HAVING PAIN, PT STATES "YES", PT DOES NOT SAY WHERE AND DOES NOT GIVE PAIN SCALE RATING. THIS RN ASKS PT IF SHE HAS ANY FURTHER NEEDS AT THIS TIME BUT FOR PAIN CONTROL MEASURES, PT STATES "NO". CALL LIGHT WITHIN REACH, BED ALARM ON FOR SAFETY.
--- NOTE | 2024-12-27 09:16 | NUR ---
Steffany was in and out of attentive engagement. Said healing and comfort prayers while I was with her.
--- NOTE | 2024-12-27 09:48 | NUR ---
Received verbal order from Dr. Morales to administer pt's amitriptylline now (dose last night was held d/t clinical judgement). Checked with pt who agreed that she takes her meds crushed (said yes when asked), and updated Primary RN who advised that pt has been refusing to swallow anything, including fluids). Dr. Morales in with pt when I administered crushed med in orange jello (small amount of jello). Pt agreed to take a bite, but when it was placed in her mouth she held it there, then spit most of it out. The crushed med (most of it) remained in her mouth. Aide in with pt for oral care at this time. Dr. Morales requested we contact pt's s/o, which was done by the storage battery charger, Molly.
--- NOTE | 2024-12-27 09:49 | NUR ---
INTO SEE PATIENT. PATIENT MOANING AND TEARFUL. LET HER KNOW HER I TALKED TO HER SPOUSE NATALIE YESTERDAY AND THAT HE MISSED HER AND WISHES SHE WAS HOME. NO FUTHER CM NEEDS AT THIS TIME.
--- NOTE | 2024-12-27 09:51 | NUR ---
PT IS JUST MOANING AND CRYING OUT. SHE ANSWERS QUESTIONS AT TIMES, BUT NOT ALL THE TIME. THIS OUTBOUND CALL CENTER REPRESENTATIVE PERFORMED ORAL CARE, PT MOANED AT TIMES, DID NOT SEEM TO LIKE THINGS IN HER MOUTH, BUT STOPPED MOANING ALSO - NOT SURE IF PT IS AWARE OR NOT? CALL LIGHT WITHIN REACH, YANETH EMPTIED, PT REFUSED TO SWALLOW ANY LIQUID FOR BREAKFAST. SIDE RAILS UP, BED LOW.
--- NOTE | 2024-12-27 10:25 | NUR ---
REG CAME IN FOR A VISIT, PT'S SIGNIFICANT OTHER. VISITOR STATED HE HAS BEEN "PRETTY TIRED OUT BY THIS". THIS CHANNEL MANAGER INFORMED THE DR AND ASKED HIM TO TALK WITH REG. ORAL CARE WAS COMPLETED ON PT. PT TOLERATED THE ORAL CARE SOMEWHAT, BUT MOANING OCCURRED THROUGHOUT. CALL LIGHT WITHIN REACH, BED LOW AND SIDE RAILS UP FOR PT SAFETY.
--- NOTE | 2024-12-27 12:14 | NUR ---
WENT INTO PT'S ROOM WITH HER LUNCH TRAY. PT IN BED WITH HEAD UP, VISITOR ON COUCH LAYING DOWN. THE DR CAME IN, TALKED TO PT ABOUT EATING SOME FOOD, VISITOR SAID HE WOULD TRY. LOOKED AT PT'S WOLFE BAG, VERY LITTLE INPUT. CALL LIGHT WITH PT, VISITOR IN ROOM, SIDE RAILS ON BED UP AND BED LOW.
--- NOTE | 2024-12-27 13:28 | NUR ---
PICC RN AT BEDSIDE.
--- NOTE | 2024-12-27 13:30 | NUR ---
CALLED FOR CONSULT FOR PICC LINE FOR PT FOR TPN. DISCUSSED PROCEDURE WITH PT AND AND BOTH CONSENTED. POTENTIAL COMPLICATIONS AND RISKS EXPLAINED WELL. RIGHT ARM UPPER ARM VEINS IDENTIFIED AND ASSESSED VIA ULTRASOUND. BASILIC VEIN IDENTIFIED BEST VEIN FOR USE, MEASURED AND 4FR TO OCCUPY 29% OF VEIN, VEIN APPROX 1 CM DEEP. PT MEASURED FOR PICC LINE LENGTH. ALL TABLES WIPED DOWN. TABLE SET UP FOLLOWING STERILE PROCEDURE. CAP AND MASK ON, STERILE GOWN AND GLOVES, PT DRAPED. EMCASLOCK MAGNET TRACKER CONNECTED. PICC TRIMMED TO 41 CM. SITE INJECTED WITH LIDOCAINE 1%. SITE CLEANSED, VEIN ACCESSED WITH 20 G IV, DARK NON PULSATILE BLOOD RETURNED. GUIDEWIRE THREAD THROUGH IV CATHETER SMOOTHLY, IV CATHETER REMOVED. VESSEL DILATOR THREAD OVER GUIDEWIRE, GUIDEWIRE REMOVED AND INTACT. PICC LINE THREAD INTO VESSEL WHILE WATCHING SHERLOCK ECG. DILATOR REMOVED AROUND PICC LINE AND SECURED AND DRESSED IN STERILE FASHION. GUIDEWIRE LEFT INSIDE PICC LINE FOR XRAY CONFIRMATION. XRAY CALLED TO BEDSIDE, APPEARS CORRECT PLACEMENT, WILL AWAIT OFFICAL READ. CLAVE PLACED ON LINE, GUIDEWIRE REMOVED AND INTACT. BLOOD RETURNED AND FLUSHED WITHOUT DIFFICULTY. DR CMCALLUM READ CHEST XRAY CAVOATRIAL JUNCTION, DOMINGUEZ AND BRENT RN NOTIFIED PICC LINE IS READY FOR USE. ARM CIRC 30 CM, LABELED APPROPRIATELY.
[2024-12-27] MEDS ORDERED: SALINE LOCK FLUSH 5 ML SYR IV PRN (14:15)
--- NOTE | 2024-12-27 14:21 | NUR ---
PT JUST WENT THROUGH A PROCEDURE, TOOK VITALS, PT MOANING AND SLEEPING, MOSTLY SLEEPING. CLEANED UP THE ROOM, CALL LIGHT WITHIN REACH. NO VISITERS AT THIS TIME. TV ON, PT ASLEEP.
[2024-12-27] MEDS ORDERED: DILUENT IV SCH (16:00)
[2024-12-27] MEDS ORDERED: FAT EMULSION 20% IV SCH ×2 (16:00)
[2024-12-27] MEDS ORDERED: MULTIVITAMINS 10 ML,ZINC/COPPER/MANGANESE/SELENIUM 1 ML,Insulin Regular, Human 20 UNIT ... IV SCH ×2 (16:00)
--- NOTE | 2024-12-27 16:45 | NUR ---
PT REQUESTED LOTION AND SOCKS ON HER FEET, DONE. GOT PT FRESH ICE WATER. CALL LIGHT WITHIN REACH OF PT. NO CURRENT VISITORS. PT'S NURSE JUST ADMINISTERED PAIN MEDICATION.
--- NOTE | 2024-12-27 17:32 | NUR ---
THIS HOUSEKEEPING WORKER PLACED SOCKS ON PT'S FEET AFTER PUTTING LOTION ON HER FEET. PT REQUESTED THE SOCKS. THIS HOUSEKEEPING WORKER ALSO PLACED LOTION ON PT'S ARMS AFTER CLEANING THEM - HOUSEKEEPING WORKER PERFORMED PARTIAL BED BATH, THE PT REFUSED MOST OF A BED BATH. PT WAS MOANING QUITE A BIT. WAS ABLE TO WIPE OFF FACE, NECK, ARM AND HANDS. CALL LIGHT WITHIN REACH, BED RAILS UP AND BED LOW FOR SAFETY. PT NOT RESPONDING TO MOST QUESTIONS.
--- NOTE | 2024-12-27 17:44 | NUR ---
PT'S NURSE WAS JUST IN THE ROOM, PT WAS MOANING AND NOT ABLE TO ANSWER DIRECT QUESIONS REGARDING HOLDING A PILLOW WHEN COUGHING OR GIVE A PAIN LEVEL. PT IN AND OUT OF SLEEP. PT HAS FRESH ICE WATER BUT DOES NOT WANT ANYTHING IN HER MOUTH. CALL LIGHT WITHIN REACH OF PT, CHAP STICK PLACED ON PT'S LIPS AFTER MOISTURIZING PT'S MOUTH WITH ORAL CARE ATTEMPTED. PT REFUSED MOST OF THE ORAL CARE.
--- NOTE | 2024-12-27 19:49 | NUR ---
PATIENT RESTING IN BED. RESPIRATIONS EVEN AND UNLABORED. CALL LIGHT IN REACH. BED ALARM ON.
[2024-12-27] MEDS ORDERED: IBLOOD GLUCOSE TEST STRIP 1 EA TEST VI SCH (20:00)
--- NOTE | 2024-12-27 20:28 | NUR ---
PATIENT HEARD MOANING FROM ROOM. THIS RN TO ROOM. PRN PAIN MEDICATION ADMINISTERED. VS AND I&Os OBTAINED AND RECORDED. WOLFE CATH CARE PROVIDED PER ORDER. PATIENT REPOSITIONED IN BED WITH PILLOW PLACED UNDER RIGHT HIP. BED ALARM ON. CALL LIGHT IN REACH. ASSESSMENT COMPLETE.
--- NOTE | 2024-12-27 22:22 | NUR ---
PATIENT HEARD CRYING IN ROOM. THIS RN TO ROOM. PATIENT UNABLE TO TELL THIS RN WHAT IS WRONG. PRN ANXIETY MEDICATION ADMINISTERED. SCHEDULED IV ABX INFUSING PER ORDER. PATIENT REPOSITIONED IN BED. PATIENT HAS NO FURTHER NEEDS AT THIS TIME. CALL LIGHT IN REACH. BED ALARM ON.
--- NOTE | 2024-12-27 23:48 | NUR ---
PATIENT RESTING IN BED, WATCHING TV. RESPIRATIONS EVEN AND UNLABORED. NO MOANING OR CRYING HEARD. NO FURTHER NEEDS. CALL LIGHT IN REACH.
[2024-12-28] VITALS (12 sets, daily range): BP systolic 146–180; BP diastolic 68–91
--- NOTE | 2024-12-28 00:42 | NUR ---
PATIENT HEARD MOANING/CRYING FROM ROOM. PRN PAIN MEDICATION ADMINISTERED. VS AND I&Os OBTAINED AND RECORDED. WHILE OBTAINING VS, PATIENT ASKED "WHAT ARE YOU DOING?". TANISHA SUAREZ STATED "WE ARE GETTING YOUR VITAL SIGNS, EVERYTHING LOOKS GOOD". PATIENT STATED "I DON'T BELIEVE THAT". THIS RN EXPLAINED TO THE PATIENT THAT WE WANT TO HELP HER GET BETTER AND IT WOULD HELP US IF SHE COULD TELL US HOW SHE WAS FEELING OR WHAT WAS WRONG. PATIENT BEGAN SOBBING AND UNABLE TO ANSWER ANY MORE QUESTIONS. PATIENT REPOSITIONED IN BED. PATIENT APPEARS TO BE COMFORTABLE AT THIS TIME. NO FURTHER NEEDS. CALL LIGHT IN REACH.
--- NOTE | 2024-12-28 02:37 | NUR ---
BS OBTAINED AND RECORDED. PATIENT REPOSITIONED IN BED. NO FURTHER NEEDS. CALL LIGHT IN REACH.
--- NOTE | 2024-12-28 03:52 | NUR ---
PATIENT HEARD MOANING FROM ROOM. PRN PAIN MEDICATION ADMINISTERED. NO FURTHER NEEDS. CALL LIGHT IN REACH.
[2024-12-28 05:13] LABS: BASOPHILS 0.3 % (0.1-1.2); EOSINOPHILS 5.3 % (0.7-5.8); LYMPHOCYTES 21.7 % (19.3-51.7); MCH 23.9 PG (25.6-32.2); MCHC 29.9 g/dL (32.2-35.5); MCV 80.1 fL (79.4-94.8); MONOCYTES 8.1 % (4.7-12.5); NEUTROPHILS 63.8 % (34.0-71.1); RBC 4.72 M/uL (3.93-5.22)
[2024-12-28 05:33] LABS: ALT (SGPT) 23.0 U/L (14-59); AST (SGOT) 25.0 U/L (15-37); GLOMERULAR FILTRATION RATE,EST 83.0 mL/min (>60); PHOSPHORUS, INORGANIC 4.4 mg/dL (2.5-4.9); PROTEIN, TOTAL 6.8 g/dL (6.4-8.2); UREA NITROGEN 18.0 mg/dL (7-18)
--- NOTE | 2024-12-28 06:09 | NUR ---
PATIENT RESTING IN BED. SCHEDULED IV ABX INFUSING PER ORDER. PATIENT REPOSITIONED IN BED WITH PILLOWS PLACED UNDER BILAT HIPS. NO FURTHER NEEDS. CALL LIGHT IN REACH.
--- NOTE | 2024-12-28 06:22 | NUR ---
PT CRYING, FACE TENSE, SHIFTING FACE SIDE TO SIDE. PT IS UNCONSOLABLE. PT UNABLE TO VERBALIZE PAIN NUMBER. POSS SCALE PAIN RATING 7/10. PRN ADMINISTERED, SEE EMAR. PT RESTING QUIETLY AFTER MEDCIATION ADMINISTRATION. CALL LIGHT IN REACH, BED ALARM ACTIVE.
--- NOTE | 2024-12-28 07:20 | NUR ---
RECIEVED REPORT FROM JAYDA MARTIN. PT LYING IN BED, RESTING WITH EYES CLOSED, BREATHING EVEN AND UNLABORED. CALL LIGHT WITHIN REACH, BED ALARM ON FOR SAFETY.
--- NOTE | 2024-12-28 08:01 | NUR ---
ATTEMPTED TO COMPLETE CBG PER EMAR. PT PULLS AWAY AND MOANS WHILE ATTEMPTING. CBG ATTEMPT UNSUCCESSFUL. RN NOTIFIED.PT REPOSITIONED ONTO R. SIDE. WOLFE CARE COMPLETE. BRIEF CHECHED AND IS CLEAN AND DRY AT THIS TIME. PT CONTINUES TO MOAN. PT DOES NOT VERBALIZE A REPSONSE WHEN ASKED IF THERE ARE AMAYA FURTHER NEEDS AT THIS TIME. RN NOTIFIED. BED ALARM ON
--- NOTE | 2024-12-28 08:18 | NUR ---
PT LYING IN BED AWAKE. PT SHAKES HEAD WHEN ASKED IF SHE IS HAVING PAIN, PT NODS WHEN ASKED IF SHE IS FEELING ANXIOUS. PT ANSWERING MINIMAL YES/NO QUESTIONS AND OCCASIONALLY ANSWERS "WHAT" WHEN SPOKEN TO. PT STATES "NO" WHEN ASKED TO TAKE PO MEDICATION, PT SHAKES HEAD WHEN BREAKFAST TRAY IS OFFERED. NO CURRENT NEEDS IDENTIFIED. CALL LIGHT WITHIN REACH, BED ALARM ON FOR SAFETY.
[2024-12-28] MEDS ORDERED: OLANZapine 10 MG VIAL IV SCH (09:30)
--- NOTE | 2024-12-28 09:49 | NUR ---
PT VITALS AND IS AND OS COMPLETE. PT REFUSES MEAL TRAY. PT OFFERED BED BATH BUT STATES "NO". PT CONTINUES TO MOAN BUT WHEN ASKED WHAT IS WRONG PT DOES NOT RESPOND TO THE QUESTION AND CONTINUES TO MOAN. PT REPOSITIONED ONTO L. SIDE. BRIEF CHECKED AND IS CLEAN AND DRY AT THIS TIME. BED ALARM ON. CALL SILVA RAMON
--- NOTE | 2024-12-28 11:10 | NUR ---
PT STATES "NO" WHEN ASKED TO TAKE PO MEDICATIONS. PT STATES "NO" WHEN ASKED TO TAKE FLUID PO. PT SHAKES HEAD WHEN ASKED IF THERE ARE CURRENT NEEDS, CALL LIGHT WITHIN REACH.
--- NOTE | 2024-12-28 11:35 | NUR ---
pt resting in bed. at bedside. pt denies needs at this time. call light in reach
--- NOTE | 2024-12-28 12:30 | NUR ---
PT LYING IN BED AWAKE, APPEARS TO BE AT EASE. THIS RN ASKS PT "ARE YOU DOING OKAY?", PT NODS HEAD. THIS RN ASKS PT TO HAVE ORAL INTAKE OF FLUID OR MEDICATIONS, PT STATES "NO". NO NEEDS IDENTIFIED AT THIS TIME, CALL LIGHT WITHIN REACH.
--- NOTE | 2024-12-28 13:35 | NUR ---
PT LYING IN BED, FAMILY AT THE BEDSIDE ATTEMPTING TO HAVE PT HAVE ORAL INTAKE. PT REFUSING ORAL INTAKE. NO NEEDS STATED AT THIS TIME, CALL LIGHT WITHIN REACH.
--- NOTE | 2024-12-28 13:39 | NUR ---
PT RESTING IN BED. FAMILY AT BEDSIDE. VITALS AND IS AND OS COMPLETE. RN NOTIFIED OF BP. CALL LIGHT IN REACH. BRIEF CLEAND AND DRY
--- NOTE | 2024-12-28 13:47 | NUR ---
PT LAYING IN BED MOANING, PT HAS FAMILY AT BED SIDE. PT GIVEN PRN LABETALOL FOR HTN (SEE EMAR). PT HAS CALL LIGHT IN REACH AND FAMILY INSTRUCTED TO CONTACT RN IF NEEDED.
--- NOTE | 2024-12-28 14:25 | NUR ---
PT CONTINUES TO REFUSE ORAL INTAKE, STATES, "NO" WHEN ASKED TO TAKE PO MEDICATION. FAMILY AT THE BEDSIDE. NO NEEDS STATED AT THIS TIME, CALL LIGHT WITHIN REACH, BED ALARM ON FOR SAFETY.
--- NOTE | 2024-12-28 14:35 | NUR ---
PT RESTING IN BED. FAMILY AT BEDSIDE. ORAL SWABS PROVIDED TO FAMILY PER PT REQUEST. PT FAMILY DENIES NEEDS AT THIS TIME. CALL LIGHT IN REACH
--- NOTE | 2024-12-28 16:22 | NUR ---
pt resting in bed. upon entering room pt starts moaning. pt consoled. pt repositioned onto l. side. room cleaned up. pt denies needs at this time. call light in reach, bed alarm on
--- NOTE | 2024-12-28 16:45 | NUR ---
PATIENT TRAY BROUGHT TO BEDSIDE. PATIENT STATES "NO" WHEN OFFERED CLEAR LIQUIDS, JAYDA PENALOZA STATES "DO YOU WANT TO TRY SOME, IT MAY MAKE YOU FEEL BETTER". PATIENT NODS AT THIS TIME. PATIENT OPENED HER MOUTH, PATIENT GIVEN SMALL AMOUNT OF JELLO, PATIENT SPITS OUT JELLO AND SHAKES HEAD TO ANOTHER ATTEMPT.NO FURTHER NEEDS AT THIS TIME, CALL LIGHT AT REACH, BED ALARM FOR SAFETY.
--- NOTE | 2024-12-28 17:41 | NUR ---
PT VITALS AND IS AND OS COMPLETE. PT SOILED THROUGH SHEETS. LARGE LIQUID BM. PT CLEANED W/ BED BATH WIPES. WOLFE CARE COMPLETE. COMPLETE BED CHANGE. NEW GOWN, BRIEF, AND SCDS PLACED. BARRIER CREAM APPLIED. PT OFFERED ORAL CARE BUT STATES "NO". PT CONTINUES TO MOAN. PT STATES "NO" WHEN ASKED IF THERE ARE ANY FURTHER NEEDS. CALL LIGHT IN REACH, BED ALARM ON
--- NOTE | 2024-12-28 20:30 | NUR ---
IN TO TAKE PT VITALS, PT IS COMFORTABLE CURRENTLY, PT WAS ABLE TO LET NEEDS BE KNOWN WITH YES/NO SIMPLE QUESTIONS, FOLET EMPTIED AT THIS TIME
--- NOTE | 2024-12-28 23:09 | NUR ---
Patient moaning in bed, flacc scale 4/10. Admin 1.5mg iv dilaudid at this time. Patient repositioned. Patient answers simple questions to "yes" and "no", she does not formulate full sentences. Patient remains close to nurses station, bed alarm intact.
[2024-12-29] VITALS (9 sets, daily range): BP systolic 139–180; BP diastolic 45–80
--- NOTE | 2024-12-29 02:00 | NUR ---
Patient moaning in bed, pt reports she is in pain. Admin dilaudid 1.5mg iv at this time. TPN bag changed with charge nurse, Kaylyn. Call light remains within reach of pt.
--- NOTE | 2024-12-29 05:22 | NUR ---
Patient repositioned, new gown placed. Ativan 0.5mg iv and dilaudid 1.5mg iv admin at this time for pain/anxiety. Patient continues to moan and report she is painful when staff ask. Vital signs are stable at this time. Call light within reach.
[2024-12-29 05:24] LABS: BASOPHILS 0.4 % (0.1-1.2); EOSINOPHILS 3.5 % (0.7-5.8); LYMPHOCYTES 20.4 % (19.3-51.7); MCH 23.8 PG (25.6-32.2); MCHC 30.4 g/dL (32.2-35.5); MCV 78.2 fL (79.4-94.8); MONOCYTES 9.0 % (4.7-12.5); NEUTROPHILS 66.1 % (34.0-71.1); RBC 4.96 M/uL (3.93-5.22)
[2024-12-29 05:44] LABS: ALT (SGPT) 24.0 U/L (14-59); AST (SGOT) 20.0 U/L (15-37); GLOMERULAR FILTRATION RATE,EST 87.0 mL/min (>60); PHOSPHORUS, INORGANIC 4.1 mg/dL (2.5-4.9); PROTEIN, TOTAL 6.7 g/dL (6.4-8.2); UREA NITROGEN 30.0 mg/dL (7-18)
--- NOTE | 2024-12-29 07:20 | NUR ---
RECIEVED REPORT FROM JAYDA OBREGON. PT RESTING IN BED WITH EYES CLOSED, BREATHING EVEN AND UNLABORED. CALL LIGHT WITHIN REACH, BED ALARM ON FOR SAFETY.
--- NOTE | 2024-12-29 09:00 | NUR ---
PT CONTINUES TO REFUSE ORAL MEDICATIONS AND ANY ORAL INTAKE AT THIS TIME. WHEN ASKED IF SHE HAS ANY PAIN, PT RESPONDS, "NO". PT STATES "NO" WHEN ASKED IF SHE HAS ANY FURTHER NEEDS, CALL LIGHT WITHIN REACH, FAMILY AT THE BEDSIDE, BED ALARM ON FOR SAFETY.
[2024-12-29] MEDS ORDERED: OLANZapine 10 MG VIAL IV SCH (09:30)
--- NOTE | 2024-12-29 10:11 | NUR ---
PT CONTINUING TO REFUSE ANY ORAL INTAKE AT THIS TIME, FAMILY AT THE BEDSIDE. PT STATES "NO" WHEN ASKED IF SHE HAS ANY CURRENT NEEDS. CALL LIGHT WITHIN REACH, BED ALARM ON FOR SAFETY.
--- NOTE | 2024-12-29 10:55 | NUR ---
TELE DC'D PER ORDER FROM
--- NOTE | 2024-12-29 14:29 | NUR ---
PT RESTING WITH EYES CLOSED, BREATHING EVEN AND UNLABORED. NO NEEDS IDENTIFIED AT THIS TIME, CALL LIGHT WITHIN REACH, BED ALARM ON FOR SAFETY.
[2024-12-29] MEDS ORDERED: MANGANESE IV SCH (16:00)
[2024-12-29] MEDS ORDERED: SELENIUM INSULIN REGULAR HUMAN IV SCH (16:00)
[2024-12-29] MEDS ORDERED: MULTIVITAMINS ZINC IV SCH (16:00)
[2024-12-29] MEDS ORDERED: COPPER IV SCH (16:00)
[2024-12-29] MEDS ORDERED: [UNRECOGNIZED DRUG - OTHER] IV SCH (16:00)
--- NOTE | 2024-12-29 16:55 | NUR ---
THIS RN AT BEDSIDE ASKS PT IF SHE WOULD DRINK SOME WATER, PT STATES "YES". PT SAT UP IN BED, WITH SMALL STRAW PT IS ABLE TO TAKE ONE SIP OF WATER WITH TIME AND ENCOURAGEMENT. PT UNABLE INTAKE ANY MORE AT THIS TIME AND NODS WHEN ASKED IF SHE WOULD LIKE TO "TAKE A BREAK AND TRY AGAIN IN A LITTLE WHILE".
--- NOTE | 2024-12-29 17:00 | NUR ---
PT HAS LIQUID BOWEL MOVEMENT, GREEN IN COLOR. PT CHANGED, LA CARE AND CATHETER CARE COMPLETED. NEW BREIF AND NEW GOWN IN PLACE. PT REPOSITIONED AND FLOATED WITH PILLOWS. PRN PAIN MEDICATION GIVEN PER PT REQUEST. FAMILY AT THE BEDSIDE, PT UNABLE TO INTAKE MORE PO AT THIS TIME. PT STATES NO FURTHER NEEDS, CALL LIGHT WITHIN REACH.
--- NOTE | 2024-12-29 17:45 | NUR ---
THIS RN CALLS DR. GOLD TO UPDATE ON PT STATUS PT HAS TAKEN A SIP OF WATER AND APPEARS TO BE MOTIVATED TO TRY MORE PO INTAKE. STATES TO NOT PLACE NG TUBE AT THIS TIME AND STATES THAT HE WILL REASSESS PT STATUS TOMORROW. NO NEW ORDERS AT THIS TIME.
--- NOTE | 2024-12-29 18:37 | NUR ---
PT BEGINS MOVING ARMS AND LEGS SUDDENLY, ATTEMPTS TO ROLL TO EDGE OF BED, LEGS OVER EDGE OF BED WHILE MOANING AND GRABBING AT BLANKETS AND THIS RN AND JAYDA PENALOZA. ATIVAN GIVEN PER ORDER. PT CONTINUES AFTER ATIVAN ADMINISTERED. RN AT THE BEDSIDE.
--- NOTE | 2024-12-29 18:56 | NUR ---
WARM BLANKETS GIVEN, PT APPEARS TO BE RELAXED WITH OCCASIONAL EPISODES OF MOANING AND SUDDEN MOVEMENT/GRABBING. RN AT THE BEDSIDE. CALL LIGHT WITHIN REACH, BED ALARM ON FOR SAFETY.
[2024-12-29] MEDS ORDERED: OLANZapine 10 MG VIAL IV ONE (19:30)
--- NOTE | 2024-12-29 19:39 | NUR ---
REPORT RECEIVED FROM JAYDA MIX. pt YELLING OUT, NON-VERBAL, SHAKING, SHIFTING IN BED. RN IN ROOM WITH pt. CPOX IN PLACE, SPO2 WNL.
--- NOTE | 2024-12-29 20:00 | NUR ---
PHONE CALL FROM SIGNIFICANT OTHER, UPDATED ON STATUS. OFFERED TO TRANSFER CALL TO ROOM, NATALIE MARTINEZ. LEILANI RN IN ROOM WITH pt. CPOX IN PLACE.
[2024-12-29] MEDS ORDERED: IBLOOD GLUCOSE TEST STRIP 1 EA TEST VI SCH (21:00)
--- NOTE | 2024-12-29 21:40 | NUR ---
IN ROOM FOR pt ASSESSMENT. WOLFE CARE COMPLETE. ASSESSMENT COMPLETE. MIDLINE AND LAP SITES CDI. NO DRESSINGS IN PLACE. TPN INFUSING WNL. pt MOANING, AWAKE, RUBBING STOMACH. PRN PAIN MEDICATION ADMINISTERED. pt REPOSITIONED IN BED 2PA, PILLOWS UNDER RIGHT HIP, LEGS ELEVATED. ATTEMPT TO PROVIDE WATER, pt MUMBLES "I DON'T KNOW" IN RESPONSE IF SHE CAN SWALLOW PILLS. DOES NOT FOLLOW DIRECTIONS WITH USING STRAW TO DRINK WATER. ATTEMPT TO SYRINGE SMALL AMT OF WATER INTO MOUTH, pt SPITS OUT. IV SITE FLUSHED WNL, IV ANTIBIOTIC INFUSING ORDERED. CALL LIGHT IN REACH. BED ALARM ON.
--- NOTE | 2024-12-29 23:55 | NUR ---
IV PUMP ALARMING, pt SHIFTING IN BED. pt MOANS, SHIFTS IN BED. REPOSITIONED IN BED, FLOATING WITH PILLOWS UNDER HIPS. WARM BLANKET PROVIDED. IV SITE AND PICC LINE ASSESSED, TPN AND ANTIBIOTIC INFUSING WNL. ORAL CARE PROVIDED, pt CLOSES MOUTH RESISTING MOUTH SWAB. BED ALARM ON. pt APPEARS TO SETTLE. BED ALARM ON.
[2024-12-30] VITALS (8 sets, daily range): BP systolic 143–172; BP diastolic 52–95
--- NOTE | 2024-12-30 00:48 | NUR ---
CHECKED ON pt. SHIFTING IN BED, PULLING AT GOWN, MOANS, RUBS STOMACH. PRN PAIN AND ANXIETY MEDICATIONS ADMINISTERED AT THIS TIME. IV ANBITIOTIC INFUSING WNL. TPN INFUSING PICC LINE WNL. BED ALARM ON.
--- NOTE | 2024-12-30 03:14 | NUR ---
ROUNDED ON pt, RESTING IN BED WITH EYES CLOSED. BREATHING EQUAL AND UNLABORED. NO DISTRESS NOTED. SPO2 WNL, CPOX IN PLACE.
[2024-12-30 05:43] LABS: INR 0.98 (0.80-1.30); PROTIME 12.3 Sec (11.2-14.2)
[2024-12-30 05:47] LABS: PHOSPHORUS, INORGANIC 3.2 mg/dL (2.5-4.9)
[2024-12-30 05:50] LABS: ALT (SGPT) 38.0 U/L (14-59); AST (SGOT) 42.0 U/L (15-37); CHOLESTEROL/HDL RATIO 4.0; GLOMERULAR FILTRATION RATE,EST 65.0 mL/min (>60); LDL CHOLESTEROL 66.0 mg/dL (< 129); NON-HDL CHOLESTEROL 107.0; PROTEIN, TOTAL 6.8 g/dL (6.4-8.2); UREA NITROGEN 35.0 mg/dL (7-18); VLDL CHOLESTEROL 41.0
--- NOTE | 2024-12-30 05:52 | NUR ---
IN ROOM FOR SCHEDULED MEDICATIONS, pt SLEEPING, AWAKENS FOR VS, VSS. INCONTINENT OF LARGE SOFT/LIQUID GREEN STOOL. ATTENDS CHANGED, WOLFE CARE COMPLETE. pt REPOSITIONED WITH PILLOWS UNDER HIPS BILATERALLY. SCDS ON. IV SITE FLUSHED WNL, IV ANTIBIOTIC INFUSING ORDERED. INCISION CDI, LAP SITES CDI. BOWEL TONES ACTIVE, ABD SOFT. ABDOMINAL BINDER IN PLACE. BED ALARM ON.
--- NOTE | 2024-12-30 06:54 | NUR ---
pt CALLING OUT, THIS RN ASKS IF pt IN PAIN. pt RESPONDS "YES" DOES NOT ANSWER ANY ADDITIONAL ORIENTATION QUESTIONS. PRN PAIN MEDICATION ADMINISTERED. IV ANTIBIOTIC NOW INFUSING WNL. pt CLOSES EYES, BREATHING EQUAL AND UNLABORED. NO DISTRESS NOTED.
--- NOTE | 2024-12-30 07:42 | NUR ---
PT RESTING EYES CLOSED AT TIME OF SHIFT REPORT. SATS 92% ON RA TPN INFUSING. PT SNORING SOFTLY APPEARS RELAXED. AWAKENS NOW MAKES SOME EYE CONTACT AND MOAN/CRIES COMFORTED BY WORDS AND HAND HELD. FACE WASHED AND ORAL CARE COMPLETED. CARE COORDINATED WITH MOLDING PLASTERER R/T REQUESTS AT MEETING WITH HOSPITALIST.
--- NOTE | 2024-12-30 08:50 | NUR ---
IN BED, BELLA. LIKELY TO HAVE NG PLACED TODAY FOR MEDICATION ADMINISTRATION PENDING FURHTER ALPHONSO. UNABLE TO DISCUSS DC PLAN AT THIS TIME WITH PATIENT.
[2024-12-30] MEDS ORDERED: PHYTONADIONE 10 MG/ML AMP SUB-Q SCH (09:00)
--- NOTE | 2024-12-30 09:36 | NUR ---
DR GOLD IN TO SEE PT, CARE COORIDNATED R/T MEDS, NEEDS, AND POSSIBLE CAUSE OF CHANGE IN MENTATION. PT AWKENS AND MOANS/CRIES COMFORTED WITH WORDS. FAMILY/FRIENDS HERE TO VISIT PT RESPONDS WITH EYE CONTACT AND REACHING FOR DOG CONTINUES NOT SPEAKING RETURNS TO RESTING EYES CLOSED
--- NOTE | 2024-12-30 10:19 | NUR ---
HOURLY ROUNDING. PATIENT IN AND OUT OF SLEEP, MOANING, CRYING. AT BEDSIDE. CHECKED PATIENT WOLFE MAKE SURE NO KINK. CALL LIGHT PLACED WITHIN REACH
--- NOTE | 2024-12-30 10:44 | NUR ---
CONTINUES TO BE PRESENT. PT SITTING ON EDGE OF BED WITH ASSIST OF PT/OT. NO INDICATIONS OF PAIN
--- NOTE | 2024-12-30 11:10 | NUR ---
DR CROCKER IN TO SEE PT VISITOR IS STILL PRESENT. CARE COORDINATED LAB ADDED.
--- NOTE | 2024-12-30 12:35 | NUR ---
PT APPEARS MORE ALERT THAN EARLIER IN THE SHIFT MAKES EYE CONTACT WHEN THIS CURING PRESS OPERATOR ENTERS THE ROOM. SHE IS NOT RESPONDING VERBALLY HOWEVER. REFUSES FLUID OFFERED.
--- NOTE | 2024-12-30 14:32 | NUR ---
DR. GOLD IN TO SEE PATIENT. TELEPSYCHE MACHINE IN ROOM FOR CONSULT.
--- NOTE | 2024-12-30 14:42 | NUR ---
PT CRYING ASKED HER IF SHE HURTS SHE SAYS "NO" ASKED WHATS WRONG SHE DOES NOT RESPOND. FAMILY ARE PRESENT WAITING FOR PSYCH EVAL
--- NOTE | 2024-12-30 15:00 | NUR ---
TANISHA GABRIEL TOOK PATIENT OVER FROM TANISHA NGUYEN @ [id number].
--- NOTE | 2024-12-30 15:01 | NUR ---
TPN DAY #4. CLEAR LIQ DIET IN PLACE BUT PATIENT NOT TAKING ANYTHING BY MOUTH. HAD 2 BM'S YESTERDAY SO GUT IS NOW FUNCTIONING. TPN RX IS NOW 2 L 15% DEXTROSE, 5% AA, 500 ML 20% LIPIDS (M-[id number]). TPN PROVIDING AN AVERAGE OF 1848 CALORIES AND 100 GM PROTEIN PER 24 HRS (25 PIPER/KG, 1.3 GM PRO/KG WHICH IS APPROPRIATE). BLOOD SUGARS ARE <150. E-LYTES ARE WNL. AWAITING TELEPSYCH EVAL TO PROVIDE ANY INCITE ON PSYCH MEDS WHICH MAY HELP PATIENT WANT TO EAT AGAIN. DR. GOLD IS CONSIDERING PLACING A SMALL NGT FOR MED ADMINISTRATION AND ENTERAL FEEDING. PATIENT REMAINS AT HIGH NUTRITION RISK. RD TO FOLLOW UP WITHIN 3 DAYS.
--- NOTE | 2024-12-30 15:01 | NUR ---
PATIENT IN BED AT THIS TIME. THIS INVASIVE CARDIOVASCULAR TECHNOLOGIST WENT INTO PATIENT ROOM FOR HOURLY ROUNDS. THIS INVASIVE CARDIOVASCULAR TECHNOLOGIST TOOK PATIENT OVER FROM INVASIVE CARDIOVASCULAR TECHNOLOGIST PATRICK AT [phone]. CALL LIGHT WITHIN REACH, NO FURTHER NEEDS.
--- NOTE | 2024-12-30 15:15 | NUR ---
TELEPSYCH DOC DOES ASSESSMENT INSTRUCTS 1 MG ATIVAN IV HE WILL CHECK BACK IN 30 MINUTES AFTER TALKING TO DR CROCKER. ATIVAN ADMINISTERED CONTINUES TO CRY. FAMILY CONTINUE TO BE PRESENT. PT DOES NOT FOLLOW INSRUCTIONS SUCH TOUCH YOUR NOSE OR STICK OUT YOUR TONGUE FOR DOC.
[2024-12-30] MEDS ORDERED: LORazepam 2 MG/ML VIAL IV PRN (15:30)
--- NOTE | 2024-12-30 15:31 | NUR ---
ORDERS INCREASED TO A TOTAL OF 1.[address] CROCKER. ADDITIONAL DOSE ADMINISTERED. PT HAS CONTINUED TO CRY SINCE ATIVAN HAS BEEN GIVEN, BUT SHE DOES STOP FOR A FEW SECONDS INBETWEEN. PT IS RESTLESS MOVING ABOUT IN BED, SHE DID NOT DO THAT EARLIER IN THE SHIFT. ASKED IF SHE WAS IN PAIN DURING THE ASSESSMENT WITH TELEPSYCH PT STATED NO, ASKED WHAT WAS WRONG NO REPLY, ASKED IF SHE WAS UNHAPPY NO RELPY WELL OTHER QUESTIONS. PT IS DOZING FOR A FEW SECONDS AT THIS TIME THEN CONTINUES TO BE RESTLESS, CRYING HAS MOSTLY STOPPED
[2024-12-30] MEDS ORDERED: FAT EMULSION 20% IV SCH (16:00)
[2024-12-30] MEDS ORDERED: FAT EMULSION 20% 500 ML IV SCH (16:00)
--- NOTE | 2024-12-30 16:10 | NUR ---
CATH CARE COMPLETED AND WOLFE CARE DONE. PT CONTINUES TO CRY AND BE RESTLESS THEN CALM FOR A SHORT TIME THEN RETURNS TO BEING RESTLESS AND MOANING OR CRYING.
--- NOTE | 2024-12-30 16:13 | NUR ---
HOURLY ROUNDING. PATIENT HAS A SMEAR BM AND CATH CARE HAS BEEN COMPLETED. PATIENT HAS ALSO BEEN REPOSIONED IN THE BED. PATIENT IS A TWO PERSON MAX ASSIST.
--- NOTE | 2024-12-30 18:12 | NUR ---
DR GOLD AND OBI IN WITH PT TO [facility] PS[facility]CH DOC ON SPEAKER PHONE. SAMLL NG TUBE INSERTED WITHOUT NEED FOR ADDITIONAL MED ATIVAN AT BEDSIDE WASTED WITH STAFF. PT CONTINUES SOMEWHAT RESTLESS BUT NO LONGER WEEPING
--- NOTE | 2024-12-30 19:39 | NUR ---
REPORT RECEIVED FROM DAY SHIFT RN. PT LYING IN BED WITH EYES CLOSED. OCCASIONAL MOANING NOTED. RESPIRATIONS EVEN. BED ALARM FOR SAFETY. CALL LIGHT IN REACH. WHITE BOARD UPDATED.
--- NOTE | 2024-12-30 21:00 | NUR ---
PT WITH RIGHT LEG OVER THE SIDE RAIL. 2PA TO REPOSITION IN BED. PT WITH EYES CLOSED. OCCASIONAL MOAN/CRY IN BETWEEN PERIODS OF REST NOTED. PT UNABLE TO FOLLOW COMMANDS OR ANSWER QUESTIONS. BED ALARM IN PLACE. CALL LIGHT IN REACH.
--- NOTE | 2024-12-30 22:39 | NUR ---
PT MOVED TO ROOM 120 FOR CLOSER OBSERVATION WITH ALL BELONGINGS. EVENING ASSESSMENT COMPLETE. SCHEDULED BP MED HELD AFTER DISCUSSING WITH DR. CROCKER IT IS UNABLE TO BE CRUSHED. NGT FLUSHED WITH 50 ML TAP WATER. NGT SECURED WITH TAPE AND OPSITE TO RIGHT SIDE OF PT FACE. BOWEL TONES ACTIVE. ABD SOFT. MIDLINE ABD INCISION WELL APPROXIMATED WITH OLD DRAINAGE. ABD BINDER IN PLACE. WOLFE PATENT WITH QS CLEAR YELLOW URINE. WOLFE CARE COMPLETE. TPN/LIPIDS INFUSING PER ORDER. RIGHT ARM PICC LINE SITE WNL. 2PA TO REPOSITION IN BED. SCD'S IN PLACE. ORAL CARE COMPLETE. BED ALARM FOR SAFETY. PT IN VIEW OF NURSES STATION.
[2024-12-31] VITALS (10 sets, daily range): BP systolic 146–193; BP diastolic 65–97
[2024-12-31] MEDS ORDERED: ACETAMINOPHEN 500 MG TAB PO PRN (00:30)
--- NOTE | 2024-12-31 00:54 | NUR ---
PT MOANING/CRYING OUT. OCCASIONALLY HOLDING HEAD. PT INCONTINENT OF XL LIQUID GREENISH BROWN BM. LA CARE DONE. NEW ATTENDS IN PLACE. PT MORE ALERT. ABLE TO SAY "YES" WHEN ASKED IF HER HEAD HURT AND "YES" WHEN ASKED IF SHE WAS COLD. PRN FOR PAIN ADMIN PER NGT. WARM BLANKET PROVIDED. ASSISTED TO REPOSITION IN BED. HOB ELEVATED. BED ALARM FOR SAFETY. PT IN VIEW OF NURSES STATION.
--- NOTE | 2024-12-31 03:12 | NUR ---
PT MOANING/CRYING OUT. REPORTS ABD PAIN. PT INCONTINENT OF LARGE AMOUNT LIQUID BM. ASSISTED WITH LA CARE. NEW ATTENDS IN PLACE. REPOSITIONED TO LEFT SIDE WITH PILLOWS. WARM BLANKET PROVIDED. PT REPORTS IMPROVEMENT. PT MORE ALERT AND CONVERSIVE ANSWERING QUESTIONS APPROPRIATELY AND FOLLOWING SIMPLE COMMANDS. NO FURTHER NEEDS. BED ALARM FOR SAFETY. CALL LIGHT IN REACH.
[2024-12-31 05:25] LABS: BASOPHILS 0.5 % (0.1-1.2); EOSINOPHILS 1.3 % (0.7-5.8); LYMPHOCYTES 17.5 % (19.3-51.7); MCH 24.4 PG (25.6-32.2); MCHC 31.0 g/dL (32.2-35.5); MCV 78.4 fL (79.4-94.8); MONOCYTES 9.5 % (4.7-12.5); NEUTROPHILS 70.6 % (34.0-71.1); RBC 4.64 M/uL (3.93-5.22)
--- NOTE | 2024-12-31 05:26 | NUR ---
PT MOANING. THIS RN IN TO ROOM. PT HAD APPROX 100 ML CLEAR EMESIS. PT REPOSITIONED TO SIDE WITH HOB ELEVATED. GOWN/LINENS CHANGED. PT DENIES NAUSEA. PT LEFT WITH HOB ELEVATED LYING ON LEFT SIDE. VS AND I&O OBTAINED. LAB IN FOR MORNING DRAW. PT REMAINS ALERT. PT ANSWERS SOME QUESTIONS APPROPRIATELY. WARM BLANKET PROVIDED. NO FURTHER NEEDS. BED ALARM FOR SAFETY. CALL LIGHT IN REACH.
[2024-12-31 05:52] LABS: GLOMERULAR FILTRATION RATE,EST 79.0 mL/min (>60); PHOSPHORUS, INORGANIC 4.1 mg/dL (2.5-4.9); UREA NITROGEN 26.0 mg/dL (7-18)
--- NOTE | 2024-12-31 06:03 | NUR ---
NOTIFIED REGARDING N/V. NEW TELEPHONE ORDERS RECEIVED VERIFIED WITH READBACK METHOD. 22G PLACED IN LEFT FOREARM X 1 ATTEMPT BY INFANT TEACHER. PT STEPHANI WELL. PRN FOR NAUSEA ADMIN. PT CONTINUES TO HAVE CLEAR EMESIS AND DRY HEAVES. PT HOLDING EMESIS IN HER MOUTH DESPITE ASSISTANCE WITH EMESIS BAG, YAUNKER, AND TOWEL. HOB ELEVATED. PT REPOSITIONED TO SIDE. GEOGRAPHIC INFORMATION SYSTEMS DIRECTOR 1:1 AT THIS TIME. BED
--- NOTE | 2024-12-31 06:37 | NUR ---
PT CONTINUES TO HAVE CLEAR EMESIS AND DRY HEAVES. NOTIFIED. NEW TELEPHONE ORDERS RECEIVED VERIFIED WITH READBACK METHOD.
[2024-12-31] MEDS ORDERED: PROCHLORPERAZINE EDISYLATE 10 MG/2 ML VIAL IV ONE (06:45)
--- NOTE | 2024-12-31 07:39 | NUR ---
PT AWAKE AT TIME OF SHIFT REPORT SHE IS MAKING EYE CONTACT AND TALKING MUCH IMPROVED FROM YESTERDAY. PT AGREES SHE IS COMFORTABLE. DENIES HUNGER, THIRST, OR NAUSEA. BED ALARM IS SET PT IS VISIBLE FROM RN STATION 07/03 STAFF
--- NOTE | 2024-12-31 07:45 | NUR ---
PT HAS EMESIS X2 JUST AFTER DENYING NAUSEA ONE AT LEAST 100MLS.
--- NOTE | 2024-12-31 07:50 | NUR ---
PATIENT IN BED AT THIS TIME. THIS EGG BREAKING MACHINE OPERATOR CHARTED BLOOD SUGAR AND CATHETER CARE. CALL LIGHT WITHIN REACH, NO FURTHER NEEDS AT THIS TIME.
[2024-12-31] MEDS ORDERED: POTASSIUM CHLORIDE 10 MEQ TABCR PO ONE (08:15)
--- NOTE | 2024-12-31 08:50 | NUR ---
NO FUTHER EMESIS. PT C/O BACK PAIN, LIDOCAIN PATCH APPLIED TYLENOL ADMINISTERED, PT REPOSITIONED. PT HAS A VISITOR AND IS VISITING AND INTERACTING APPROPRIATELY. STAFF CONTINUE 07/03
--- NOTE | 2024-12-31 09:04 | NUR ---
PATIENT IN BED AT THIS TIME. STRAW HAT PLUNGER OPERATOR CHARTED VITALS AND I&O'S. CALL LIGHT WITHIN REACH, NO FURTHER NEEDS AT THIS TIME.
--- NOTE | 2024-12-31 09:48 | NUR ---
NURSING IN ROOM PROVIDING CARES. PLAN TO DC TO HOME WHEN MEDICALLY STABLE. CONTINUES WITH NG TUBE FOR MED ADMINISTRATION. TPN.
[2024-12-31] MEDS ORDERED: PROCHLORPERAZINE EDISYLATE 10 MG/2 ML VIAL IV PRN (10:15)
--- NOTE | 2024-12-31 10:33 | NUR ---
PATIENT IN BED AT THIS TIME. THIS STRATEGIC BUYER AND STRATEGIC BUYER ALINA CHANGED PATIENTS LINENS AND PROVIDED PATIENT WITH NEW GOWN. CALL LIGHT WITHINR EACH, NO FURTHER NEEDS AT THIS TIME.
--- NOTE | 2024-12-31 10:35 | NUR ---
NAUSEA HAS ABATED AT THIS TIME PT AGREES SHE HAS EMESIS BUT NO NAUSEA BEFORE HAND. RESTING NOW, IS PRESENT PT CONVERSING APPROPRIATELY.
--- NOTE | 2024-12-31 11:06 | NUR ---
PT VISITING WITH FAMILY. DID NOT INTERRUPT. PROVIDED PRAYER.
--- NOTE | 2024-12-31 11:07 | NUR ---
PT CONTINUES TO BE ALERT AND INTERACTIVE SON HERE FROM [place] PT IS CONVERSING APPROPRIATELY.
--- NOTE | 2024-12-31 11:54 | NUR ---
PATIENT IN BED AT THIS TIME. CALL LIGHT WITHIN REACH, NO FURTHER NEEDS AT THIS TIME.
--- NOTE | 2024-12-31 12:22 | NUR ---
PT RESTING EYES CLOSED ROOM HAS BEEN DARKENED BY FAMILY
--- NOTE | 2024-12-31 13:38 | NUR ---
PATIENT IN BED AT THIS TIME. ENTRY LEVEL SALES REPRESENTATIVE CHARTED VITALS AND I&O'S. CALL LIGHT WIITHIN REACH, NO FRUTHER NEEDS AT THIS TIME.
--- NOTE | 2024-12-31 14:45 | NUR ---
PATIENT IN BED AT THIS TIME. THIS SUPPLY CHAIN VICE PRESIDENT AND SUPPLY CHAIN VICE PRESIDENTSarah FULLER CHANGED PATIENT LINENS AND PROVIDED PATIENT WITH BED BATH. PATIENT IS ALSO PROVIDED WITH FRESH GOWN. CALL LIGHT WITHIN REACH, NOFURTHER NEEDS AT THIS TIME.
--- NOTE | 2024-12-31 14:51 | NUR ---
PT REQUESTS SIPS OF H20 SEVERAL TIMES THIS SHIFT. HAS HAD NO EMESIS SINCE EARLY IN THE SHIFT COMPAZINE BEING ADMINISTERED PREVENTATIVELY.
--- NOTE | 2024-12-31 15:47 | NUR ---
PATIENT IN BED AT THIS TIME. PLANISHING PRESS OPERATOR CHARTED HOURLY ROUNDS. CALL LIGHT WITHIN REACH, NO FURTHER NEEDS AT THIS TIME.
[2024-12-31] MEDS ORDERED: MULTIVITAMINS 10 ML,ZINC/COPPER/MANGANESE/SELENIUM 1 ML,Insulin Regular, Human 20 UNIT ... IV SCH (16:00)
--- NOTE | 2024-12-31 17:14 | NUR ---
PT STATES SHE FEELS HUNGRY BUT DECLINES OFFER OF JELLO, BROTH, TEA, OR OTHER. CONTINUES SMALL SIPS OF H20. FAMILY HAVE GONE NOW PT RESTING EYES CLOSED BUT NOT SLEEPING.
--- NOTE | 2024-12-31 18:18 | NUR ---
PT IS LAYING IN BED, ALMOSTY FLAT. PT RECOGNIZED THIS CLAY PUDDLER, AND WAS TALKING, BUT WAS NOT MAKING SENSE WITH WHAT SHE WAS SAYING. CLEANED UP ROOM, EMPTIED WOLFE. PT WANTED A CIGARETTE, BUT NOTHING ELSE AT THIS TIME. GOT PT FRESH ICE WATER.
--- NOTE | 2024-12-31 18:42 | NUR ---
PT REQUESTED WARM BLANKET, SAID SHE WAS COLD. PT NEEDED NOTHING ELSE AT THIS TIME. CALL LIGHT WITHIN REACH, ROOM CLEANED.
--- NOTE | 2024-12-31 19:19 | NUR ---
REPORT RECEIVED FROM DAY SHIFT RN. PT LYING IN BED ALERT ANSWERING QUESTIONS APPROPRIATELY. DENIES NEEDS. WHITE BOARD UPDATED. CALL LIGHT IN REACH.
--- NOTE | 2024-12-31 20:40 | NUR ---
PT HAD APPROX 100 ML BROWN EMESIS. IN FOR PRN N/V ADMIN. MD AT BED SIDE. NEW VERBAL ORDERS RECEIVED VERIFIED WITH READBACK METHOD. IV IN LEFT FOREARM NOT PATENT. IV DC'S WNL. 22G PLACED IN LEFT WRIST X 3 ATTEMPTS BY PARK MAINTAINER AND THIS RN. PT STEPHANI WELL.
--- NOTE | 2024-12-31 21:39 | NUR ---
PRN FOR N/V ADMIN PER EMAR. ASSISTED WITH LINEN/GOWN CHANGE. PT ABLE TO FOLLOW SIMPLE DIRECTIONS. EVENING ASSESSMENT COMPLETE. ABD BINDER IN PLACE. BOWEL TONES ACTIVE. ABD SOFT. PT DENIES FLATUS. MIDLINE ABD INCISION WELL APPROXIMATED WITH OLD DRAINAGE. NO REDNESS NOTED. WOLFE PATENT WITH YELLOW URINE. WOLFE CARE DONE. SCD'S IN PLACE. TPN INFUSING PER ORDER. RIGHT UPPER ARM PICC LINE PATENT WITH DRESSING INTACT. 2PA TO REPOSITION IN BED. HOB ELEVATED. BED ALARM IN PLACE. CALL LIGHT IN REACH.
--- NOTE | 2024-12-31 21:45 | NUR ---
PATIENT HAD APPROXIMATELY 100ML OF BROWN COLOR VOMITUS. CHANGED PATIENT'S GOWN AFTER CLEANED UP. BED LINEN CHANGED. WOLFE CARE PERFORMED. SDC'S ON. BED ALARM ACTIVATED FOR SAFETY. V/S AND I&O'S COMPLETED.
[2024-12-31] MEDS ORDERED: METOCLOPRAMIDE HCL 10 MG/2 ML SDV IV SCH (22:00)
--- NOTE | 2024-12-31 22:52 | NUR ---
EVENING MEDS CRUSHED AND ADMIN THROUGH FLEXIFLO TUBE ORDERED. FLEXIFLO FLUSHED WITH 30 ML TAP WATER. HOB ELEVATED >30 DEGREES. PT DENIES FURTHER NEEDS. BED ALARM FOR SAFETY. CALL LIGHT IN REACH. PT IN VIEW OF NURSES STATION.
[2025-01-01] VITALS (8 sets, daily range): BP systolic 165–180; BP diastolic 70–94
--- NOTE | 2025-01-01 00:32 | NUR ---
PT RESTING IN BED WITH EYES CLOSED. RESPIRATIONS EVEN. CALL LIGHT IN REACH.
[2025-01-01] MEDS ORDERED: METOCLOPRAMIDE HCL 10 MG/2 ML SDV IV SCH (02:00)
--- NOTE | 2025-01-01 02:23 | NUR ---
PT AWAKE IN BED. 2PA TO REPOSITION. SIPS OF WATER PROVIDED. NO SWALLOWING ISSUES NOTED. NO C/O PAIN OR NAUSEA AT THIS TIME. NO FURTHER NEEDS. BED ALARM FOR SAFETY. PT IN VIEW OF NURSES STATION.
--- NOTE | 2025-01-01 04:15 | NUR ---
IV PUMP ALARMING. ISSUE RESOLVED. PT AWAKE IN BED. ALERT. ORIENTED TO SELF. DENIES PAIN OR NAUSEA AT THIS TIME. SCHEDULED MEDS ADMIN. SIPS OF WATER PROVIDED. NO FURTHER NEEDS. BED ALARM FOR SAFETY. PT IN VIEW OF NURSES STATION.
--- NOTE | 2025-01-01 05:05 | NUR ---
VS AND I&O OBTAINED. 2PA TO REPOSITION IN BED. ASSESSMENT UNCHANGED. NO FURTHER NEEDS. CALL LIGHT IN REACH. BED ALARM IN PLACE.
[2025-01-01 05:29] LABS: MCH 24.5 PG (25.6-32.2); MCHC 31.5 g/dL (32.2-35.5); MCV 77.7 fL (79.4-94.8); RBC 4.53 M/uL (3.93-5.22)
[2025-01-01 05:40] LABS: EOSINOPHILS, MANUAL DIFF 1; LYMPHOCYTES, MANUAL DIFF 22; MONOCYTES, MANUAL DIFF 3; NEUTROPHILS, MANUAL DIFF 74
[2025-01-01 05:44] LABS: GLOMERULAR FILTRATION RATE,EST 89.0 mL/min (>60); PHOSPHORUS, INORGANIC 4.2 mg/dL (2.5-4.9); UREA NITROGEN 25.0 mg/dL (7-18)
--- NOTE | 2025-01-01 07:27 | NUR ---
PT RESTING IN BED, AWAKE AND ALERT. CALL LIGHT WITHIN REACH, BED ALARM ON. NO REQUESTS AT THIS TIME. REPORT RECEIVED FROM JAYDA LABOY.
[2025-01-01] MEDS ORDERED: POTASSIUM CHLORIDE 40 MEQ in DEXTROSE 5% 250 ML IV ONE (08:00)
--- NOTE | 2025-01-01 08:47 | NUR ---
PATIENT WASHED HER FACE AND SHE TRIED TO DO HER ORAL CARE BUT SHE STARTED FEELING NAUSEAS. PATIENT WANTS TO BE BOOSTED UP IN BED.
--- NOTE | 2025-01-01 10:40 | NUR ---
PATIENT IS ALERT AND ORIENTED TODAY. SON IN ROOM WITH HER. DISCUSSED RECOMMENDATION FOR INPATIENT REHAB VS SNF. DISCUSSED WHAT BOTH OPTIONS ARE. PATIENT IS FROM [place] BUT IS NOT INTERESTED IN SNF AT [place]. PATIENT CHOICES PROVIDED TO PATIENT AND SON SO THEY MAY DECIDE WHERE THEY WOULD LIKE HER TO GO AT DISCHARGE.
--- NOTE | 2025-01-01 10:41 | NUR ---
PT NOT AVAILABLE FOR VISIT. PROVIDED PRAYER.
--- NOTE | 2025-01-01 11:25 | NUR ---
DO TO POWER OUTAGE THIS MORNING I AM LOCKED IN TO THE VITALS SIGNS. PATIENT TEMP.98.4 PULSE 85 RR 16 O2 92 B/P 179/75 (102)
--- NOTE | 2025-01-01 12:55 | NUR ---
PATIENT'S SON CAME OUT TO NURSES STATION TO LET US KNOW PATIENT HAD TO HAVE A BM. THIS NUTRITIONIST PUBLIC HEALTH AND RN ADRIEL IN ROOM TO HELP PATIENT TO BSC. PATIENT HAD INCONT. BM. TRANSFERED TO BSC, STAND PIVOT 2PA. LA CARE AND CATH CARE DONE. NEW ATTENDS IN PLACE. FRESH BLANKETS FOR CHAIR. PATIENT THEN BACK TO CHAIR, STAND PIVOT 2PA. CHAIR ALARM ON. FALL MAT ON GROUND IN FRONT OF CHAIR. CALL LIGHT IN REACH. NO FURTHER NEEDS AT THIS TIME.
--- NOTE | 2025-01-01 13:30 | NUR ---
STILL UNABLE TO COMPLETE MEWS ASSESSMENT ON COMPUTER DUE TO SHAHEED BEING LOCKED IN VS PAGE. VITAL SIGNS AND LABS STILL BEING REVIEWED THROUGHOUT THE DAY HOWEVER.
[2025-01-01] MEDS ORDERED: ENALAPRILAT DIHYDRATE 1.25 MG/ML VIAL IV SCH (14:00)
--- NOTE | 2025-01-01 14:30 | NUR ---
BEFORE PATIENT'S FAMILY CAME AND IMAGING. I DID HER WOLFE CARE AND LA CARE.
--- NOTE | 2025-01-01 14:38 | NUR ---
TPN DAY 6. PATIENT IS MORE ALERT AND CONVERSANT WITH NURSING STAFF AFTER RECEIVING HER PSYCH MEDS VIA THE FLEXIFLOW NGT. NOT ALERT ENOUGH TO TAKE SIGNIFICANT LIQUIDS/FOOD BY MOUTH. HAD SMALL EMESIS X 2 YESTERDAY AND X1 THIS MORNING. +BM YESTERDAY. MG+ AND PHOS ARE WNL. K+ 3.2 (LOW) TODAY. POC GLUCOSE TODAY: 153, 138 WITH INSULIN IN THE TPN. TPN STILL PROVIDING AN AVERAGE OF 1848 CALORIES AND 100 GM PROTEIN PER 24 HRS (24.6 PIPER/KG, 1.3 GM PRO/KG). MEDS REVIEWED. REGLAN STARTED YESTERDAY. NUTRITION GOAL: 100% OF PIPER/PRO NEEDS MET BY TPN UNTIL POSSIBLE TRANSITION TO NG ENTERAL FEEDS OR UNTIL PATIENT CAN TAKE ENOUGH NUTRITION BY MOUTH. PATIENT REMAINS AT HIGH NUTRITION RISK. RD TO FOLLOW UP IN 5 DAYS OR SOONER IF CONSULTED.
--- NOTE | 2025-01-01 15:00 | NUR ---
IMAGING CAME IN AND DID HER XRAYS. NOW FAMILY IS IN ROOM VISITING PATIENT. ALSO NURSE AND I TURNED PATIENT ON HER RIGHT SIDE.
--- NOTE | 2025-01-01 15:14 | NUR ---
PT RESTING IN BED, REPOSITIONED TO R) SIDE REQUESTED. FAMILY IN ROOM VISITING WITH PT. WEIGHTED NG TUBE CLAMPED AND SECURED IN PLACE. CALL LIGHT WITHIN REACH AND BED ALARM ON.
[2025-01-01] MEDS ORDERED: [UNRECOGNIZED DRUG - OTHER] IV SCH (16:00)
[2025-01-01] MEDS ORDERED: COPPER IV SCH (16:00)
[2025-01-01] MEDS ORDERED: SELENIUM INSULIN REGULAR HUMAN IV SCH (16:00)
[2025-01-01] MEDS ORDERED: MANGANESE IV SCH (16:00)
[2025-01-01] MEDS ORDERED: MULTIVITAMINS ZINC IV SCH (16:00)
--- NOTE | 2025-01-01 17:05 | NUR ---
TPN DOSE VERIFIED WITH ELIAN RODRIGUEZ RN. THIS RN AND JAYDA PLUMMER FOUND ELECTROLYTE DISCREPENCY FROM THE ORDER TO THE BAG OF TPN. ALDEN THE PHARMAMCIST CALLED ELIAN RODRIGUEZ RN AND SAID THE TPN IS OUR FORMULA AND GOOD TO CONTINUE WITH ADMINISTRATION. ALDEN, PHARMACIST TOLD ELIAN THE TPN ORDER SHEET NEEDS TO BE UPDATED. TPN RESTARTED AT THIS TIME.
--- NOTE | 2025-01-01 17:10 | NUR ---
PATIENT IS SITTING UPRIGHT IN BED WITH HOB ELEVATED. PATIENT WITH EYES OPEN AND RESPIRATIONS ARE EVEN AND UNLABORED. TV IS ON. TANISHA ROMERO IS IN THE ROOM AT THIS TIME GETTING VITAL SIGNS. CALL LIGHT AND PERSONAL BELONGIGNS ARE WITHIN REACH.
--- NOTE | 2025-01-01 18:10 | NUR ---
PATIENT IS LYING IN BED WITH EYES OPENA ND RESPIRATIONS ARE EVEN AND UNLABORED. TANISHA ROMERO AND TANISHA FULLER ARE IN THE ROOM AT THIS TIME AND CHANGING THE PATIENT. CALL LIGHT AND PERSONAL BELONGINGS ARE WITHIN REACH.
--- NOTE | 2025-01-01 18:13 | NUR ---
PATIENT IS LAYING IN BED. THIS FAMILY MEDICINE CHAIR AND FAMILY MEDICINE CHAIR ALINA CHANGED PATIENTS BRIEF AND DID LA CARE. PATIENT WAS PULLED UP AND ADJUSTED IN BED. PATIENTS CALL LIGHT IS WITHIN REACH AND NO FURTHER NEED AT THIS TIME.
--- NOTE | 2025-01-01 19:19 | NUR ---
REPORT RECEIVED FROM DAY SHIFT RN. PATIENT RESTING IN BED ON BACK WITH EYES CLOSED. RESPIRATIONS EVEN AND UNLABORED. CALL LIGHT IN REACH. BED ALARM ON.
--- NOTE | 2025-01-01 20:05 | NUR ---
PATIENT RESTING IN BED. AWAKENS EASILY. PATIENT ABLE TO SWALLOW WATER AND PILLS, SEATED STRAIGHT UP IN BED, WITHOUT DIFFICULTY. NO ASPIRATION NOTED. PATIENT STEPHANI WELL. PATIENT A&O x3 AT THIS TIME. PATIENT REPOSITIONED IN BED. VS AND I&Os OBTAINED AND RECORDED. PATIENT DENIES FURTHER NEEDS AT THIS TIME. CALL LIGHT IN REACH. ASSESSMENT COMPLETE. BED ALARM ON.
--- NOTE | 2025-01-01 20:07 | NUR ---
DR ORTIZ HERE TO SEE PTS. NEW ORDERS FOR BEDSIDE SWALLOW EVAL AND SWALLOW EVAL AND TREATMENT BY THERAPIST ORDERED.
--- NOTE | 2025-01-01 21:08 | NUR ---
PATIENT RESTING IN BED AT THIS TIME, WATCHING TV. DENIES NEEDS AT THIS TIME. CALL LIGHT IN REACH.
--- NOTE | 2025-01-01 22:16 | NUR ---
THIS RN TO ROOM TO GIVE SCHEDULED MEDICATION. SCHEDULED MEDICATION ADMINISTERED. PATIENT REQUESTING PRN PAIN MEDICATION FOR 8/10 HEADACHE PAIN. PO PAIN MEDICATION ADMINISTERED. PATIENT STEPHANI WELL. PATIENT ABLE TO SWALLOW PILLS AND WATER WITHOUT TROUBLE. PATIENT HAS NO FURTHER NEEDS AT THIS TIME. CALL LIGHT IN REACH. HOB REMAINS ELEVATED AT THIS TIME.
--- NOTE | 2025-01-01 22:52 | NUR ---
CALL LIGHT ANSWERED. PATIENT REQUESTING TO BE PULLED UP IN BED. THIS RN AND REVENUE ACCOUNTING MANAGER TO ROOM. NEW SLIDE SHEET AND DRISS IN PLACE. BARRIER CREAM APPLIED TO COCCYX. PATIENT REPOSITIONED IN BED. WOLFE CATH CARE PROVIDED PER ORDER. PATIENT DENIES FURTHER NEEDS AT THIS TIME. PATIENT DENIES NAUSEA. NO FURTHER NEEDS. BED ALARM ON. FALL MATS IN PLACE. SCDs IN PLACE. CALL LIGHT IN REACH.
[2025-01-02] VITALS (12 sets, daily range): BP systolic 125–187; BP diastolic 52–80
--- NOTE | 2025-01-02 02:23 | NUR ---
PATIENT RESTING IN BED. VS OBTAINED AND RECORDED. SCHEDULED MEDICATION ADMINISTERED. PATIENT REPOSITIONED IN BED WITH PILLOWS PLACED UNDER BILAT HIPS. PATIENT HAS NO FURTHER NEEDS. BED ALARM ON. CALL LIGHT IN REACH.
--- NOTE | 2025-01-02 04:30 | NUR ---
PATIENT RESTING IN BED. VS AND I&Os OBTAINED AND RECORDED. SCHEDULED MEDICATION ADMINISTERED. PATIENT STATES "IS MY CAR OUTSIDE?". THIS RN STATED "YOU ARE IN THE HOSPITAL, REMEMBER?". PATIENT STATED "NO I AM NOT! THIS IS MY HOUSE". PATIENT THEN PROCEEDED TO SAY "OH YEAH. I AM IN THE HOSPITAL I REMEMBER NOW". PATIENT REPOSITIONED IN BED. SCDs IN PLACE. BED ALARM ON. TV TURNED ON PER PATIENT REQUEST. NO FURTHER NEEDS. CALL LIGHT IN REACH.
[2025-01-02 05:37] LABS: GLOMERULAR FILTRATION RATE,EST 88.0 mL/min (>60); PHOSPHORUS, INORGANIC 4.3 mg/dL (2.5-4.9); UREA NITROGEN 28.0 mg/dL (7-18)
--- NOTE | 2025-01-02 06:43 | NUR ---
PATIENT RESTING IN BED WITH EYES CLOSED. RESPIRATIONS EVEN AND UNLABORED. CALL LIGHT IN REACH. BED ALARM ON.
--- NOTE | 2025-01-02 07:05 | NUR ---
RECIEVED REPORT FROM JAYDA MARTIN. PT RESTING IN BED WITH EYES CLOSED, BREATHING EVEN AND UNLABORED. CALL LIGHT WITHIN REACH, BED ALARM ON FOR SAFETY.
--- NOTE | 2025-01-02 08:53 | NUR ---
CHART SENT TO [facility]
--- NOTE | 2025-01-02 09:24 | NUR ---
INTO THE ROOM TO TALK TO PATIENT AND SON. TALKED ABOUT IPR VS. SNF STATED THERAPY WAS RECCOMENDING IPR. SON STATES "THAT [place] OVER [address] WE WOULD LIKE HER TO STAY IN [place] WE ARE GOING TO LOOK AT [facility] TODAY WHEN HER PARTNER GETS HERE. WHY DOES A 79 YEAR OLD NEED INTENSIVE THERAPY." EDUCATED HIM ON WHAT IPR IS AND HOW THERAPIES ARE RECCOMENDING IT. LET OT KNOW THE PATIENT FAMILY CONCERNS. PATIENT HAS BEEN ACCEPTED TO [facility] WHEN MEDICALLY READY.
--- NOTE | 2025-01-02 09:30 | NUR ---
PT AWAKE IN BED, ST AT THE BEDSIDE DOING SWALLOW EVAL. MEDICATIONS GIVEN THROUGH NG TUBE. PT REQUESTS PRN TYLENOL, GIVEN. PT SON AT THE BEDSIDE. CASE MANAGEMENT AND PHYSICAL THERAPY TO THE BEDSIDE. PT STATES NO FURTHER NEEDS AT THIS TIME, CALL LIGHT WITHIN REACH.
--- NOTE | 2025-01-02 10:56 | NUR ---
PT UP TO CHAIR, WOLFE CATHETER TUBING CLAMPED FOR UA. PT STATES NO CURRENT NEEDS AT THIS TIME, STATES HEADACHE IS STILL PRESENT, COOL WASHCLOTH GIVEN. CALL LIGHT WITHIN REACH, CHAIR ALARM ON FOR SAFETY, PT SON AT THE BEDSIDE.
--- NOTE | 2025-01-02 11:54 | NUR ---
JEB AND I DID A BED BATH NEW GOWN AND SOCKS. ALSO BED LINEN CHANGED. JEB HELPED ME TRANFER FROM HER CHAIR TO THE BEDSIDE COMMODE. THAN BACK TO THE CHAIR AND THAN TO THE BED.
--- NOTE | 2025-01-02 12:05 | NUR ---
THIS RN ATTEMTPS TO COLLECT URINE SAMPLE FROM WOLFE CATHETER, NOT ENOUGH URINE PRESENT, CATHETER TUBING REMAINS CLAMPED AT THIS TIME. PT STATES NO CURRENT NEEDS. CALL LIGHT WITHIN REACH.
--- NOTE | 2025-01-02 12:07 | NUR ---
PT NOT AVAILABLE FOR VISIT. PROVIDED PRAYER.
[2025-01-02 13:05] LABS: BLOOD/HGB, URINE LARGE (Negative); KETONE, URINE NEGATIVE (Negative); LEUK ESTERASE, URINE TRACE (negative); NITRITE, URINE NEGATIVE (negative)
[2025-01-02 13:10] LABS: BACTERIA, URINE 2+ /hpf (negative); CRYSTALS, URINE NONE SEEN (0-1+); REFLEX CULTURE, URINE Yes (No)
[2025-01-02 13:12] LABS: CASTS, URINE NONE SEEN \\lpf; EPITHELIAL CELLS, URINE 0 /lpf (0-1+)
--- NOTE | 2025-01-02 13:28 | NUR ---
[facility] IPR CALLED AND SAID THEY WOULD NOT ACCEPT PATIENT UNTIL MONDAY AND WOULD LIKE TO SEE MORE THERAPY NOTES. THEY SAID TO SEND UPDATES ON MONDAY.
--- NOTE | 2025-01-02 13:35 | NUR ---
CHART SENT TO [facility], AND [facility].
--- NOTE | 2025-01-02 13:38 | NUR ---
PATIENT SON TO GO LOOK AT SNF FACILITIES.
--- NOTE | 2025-01-02 13:55 | NUR ---
[facility] NO BEDS TILL MONDAY OR MONDAY
--- NOTE | 2025-01-02 15:30 | NUR ---
Received a call from pts son. He visited [facility], [facility] at the [place], and [facility] [place] He would like mom to go to [facility] at the [place] or [facility]. I let him know, the charts were sent by [facility] earlier and we will need to have an accepting facility. He would only like these two facilities. I discussed with him we are willing to assist with his mom's choices. We also have to consider Medicare. When there is an accepting facility, we will let him know. His mom can accept or decline at that time. Medicare will not cont. to pay for mom to remain in the hospital for an excessive amount of time once their is a facility available. Son states understanding.
--- NOTE | 2025-01-02 15:57 | NUR ---
Received a call from Kusum gonzalez [facility] at the [place]. Updated pt will most likely be ready for dc on Monday. She also wanted to know if she would be on PO meds. I am unsure at this time as pt is leaving for an EGD shortly. We agreed I will send all the updated notes on Monday.They do not accept pts over the weekend and tomorrow is a holiday. She does state they will have a bed open Monday. They will review the chart on Monday am and possibly accept her Monday.
--- NOTE | 2025-01-02 16:29 | NUR ---
PT LEAVES FLOOR WITH DAY SURGERY RNs FOR PROCEDURE.
--- NOTE | 2025-01-02 17:47 | NUR ---
01/02/25 1747 Trinity Rangel 1721-PT ARRIVES TO PACU, VIA STRETCHER, PT DROWSY BUT AWAKENS EASILY, PT C/O NASAL IRRITATION BUT DENIES NAUSEA OR ABD PAIN. VSS ON 6L VIA NC, RR EVEN AND UNLABORED. 1725-NATIONAL BUSINESS DIRECTOR AT BEDSIDE FOR CXR FOR NG TUBE REPLACEMENT. NG NOTED TO LOOPED, NG PULLED AND REPLACED BY , CXR REPEATED AND CORRECT NG TUBE PLACEMENT CONFIRMED BY . 1735-PT TITRATED TO RA, VS REMAIN STABLE.
--- NOTE | 2025-01-02 17:55 | NUR ---
[facility], TRANSFERED BY STAFF TO BED IN ROOM. PT DENIES PAIN/NAUSEA/SOB. VSS. PT REQUESTS WARM BLANKET, GIVEN. LW IV DC'D D/T IRRITATION AND REDNESS. PT STATES NO FURTHER NEEDS AT THIS TIME, CALL LIGHT WITHIN REACH.
--- NOTE | 2025-01-02 18:52 | NUR ---
TUBE FEED STARTED PER ORDER AT 20ML/HR.
--- NOTE | 2025-01-02 19:30 | NUR ---
REPORT RECEIVED FROM DAY SHIFT RN. PATIENT RESTING IN BED. DENIES NEEDS AT THIS TIME. CALL LIGHT IN REACH.
[2025-01-02] MEDS ORDERED: IBLOOD GLUCOSE TEST STRIP 1 EA TEST XX SCH (20:00)
[2025-01-02] MEDS ORDERED: SUCRALFATE 1 GM TAB PO SCH (20:00)
--- NOTE | 2025-01-02 21:04 | NUR ---
PATIENT RESTING IN BED. VS AND I&Os OBTAINED AND RECORDED. SCHEDULED MEDICATION ADMINISTERED. PATIENT DENIES PAIN OT NEEDS AT THIS TIME. TUBE FEEDING INFUSING PER ORDER. BED ALARM ON. ASSESSMENT COMPLETE. CALL LIGHT IN REACH.
--- NOTE | 2025-01-02 22:48 | NUR ---
SCHEDULED MEDICATION ADMINISTERED. NG TUBE FLUSHED WITH 100 mL TAP WATER PER ORDER. PATIENT STEPHANI WELL. PATIENT HAS NO FURTHER NEEDS. CALL LIGHT IN REACH. PATIENT HOB LOCKED IN PLACE AT AT 30 DEGREES. BED ALARM ON.
[2025-01-03] VITALS (12 sets, daily range): BP systolic 141–178; BP diastolic 62–75
--- NOTE | 2025-01-03 02:27 | NUR ---
PT AWAKENED FOR 0200 VS. 0200 MEDS ADMINISTERED PER EMAR. BG OBTAINED, WNL. KEOFEED TUBE FLUSHED W/ 100cc WATER. TF INFUSING AT 20MLS/HR. PT REPOSITIONED IN BED FOR COMFORT, HOB @ 30 DEGREES.
--- NOTE | 2025-01-03 05:25 | NUR ---
PATIENT RESTING IN BED. REPORTS 9/10 HEADACHE. PRN PAIN MEDICATION ADMINISTERED. NG TUBE FLUSHED PER ORDER. VS AND I&Os OBTAINED AND RECORDED. NEW PUREWICK PLACED AFTER LA CARE PROVIDED. PATIENT DENIES FURTHER NEEDS AT THIS TIME. CALL LIGHT IN REACH.
[2025-01-03 05:37] LABS: GLOMERULAR FILTRATION RATE,EST 90.0 mL/min (>60); PHOSPHORUS, INORGANIC 4.2 mg/dL (2.5-4.9); UREA NITROGEN 23.0 mg/dL (7-18)
[2025-01-03 07:41] LABS: MCH 24.3 PG (25.6-32.2); MCHC 31.5 g/dL (32.2-35.5); MCV 77.2 fL (79.4-94.8); RBC 4.56 M/uL (3.93-5.22)
--- NOTE | 2025-01-03 08:09 | NUR ---
Patient awake, alert and oriented x3, no acute distress. Patient reports she is doing pretty well today aside from an ongoing headache, recent dose of tylenol given. TPN and tube feeding infusing per order, pt tolerating well. Patient denies nausea. Patient close to nurses station.
[2025-01-03 08:15] LABS: LYMPHOCYTES, MANUAL DIFF 14; MONOCYTES, MANUAL DIFF 7; NEUTROPHILS, MANUAL DIFF 79
[2025-01-03] MEDS ORDERED: TRAMADOL HCL 50 MG TAB PO PRN (09:00)
--- NOTE | 2025-01-03 09:54 | NUR ---
Admin ultram 50mg po for reports of 7/10 headache pain.
--- NOTE | 2025-01-03 10:16 | NUR ---
Increased tube feeding rate by 10ml at this time-rate currently 30ml/hr.
[2025-01-03] MEDS ORDERED: SUCRALFATE PO SCH ×2 (11:49→14:00)
--- NOTE | 2025-01-03 13:00 | NUR ---
Flushed tube feeding line with 100ml water to clear line per order.
--- NOTE | 2025-01-03 14:35 | NUR ---
Patient awake in bed visiting wtih family, no distress. Patient denies needs at this time, personal supplies and call light within reach.
--- NOTE | 2025-01-03 15:19 | NUR ---
Patient requesting to get out of room for a walk. Patient's son and fire inspector to walk patient. Patient is alert and oriented, intermittently forgetful.
[2025-01-03] MEDS ORDERED: FAT EMULSION 20% IV SCH (17:00)
--- NOTE | 2025-01-03 17:58 | NUR ---
Tube feedings increased by 10ml at this time. Tube feeding rate at 40ml/hr at this time. Patient tolerating feedings well.
--- NOTE | 2025-01-03 18:21 | NUR ---
CARLOS from Dr. Buck to start pyridium 100mg po TID for two day duration. Order placed at this time.
--- NOTE | 2025-01-03 18:52 | NUR ---
RECEIVED FAX FROM [facility]Y - CONTRAINDICATED FOR CRCL IS BELOW 50. PER MD, DISCONTINUE ORDER AT THIS TIME. PRIMARY RN NOTIFIED.
--- NOTE | 2025-01-03 18:52 | NUR ---
PATIENT IS IN HER BED AT THIS TIME, BOOTH CLEANER ASSISTED PATIENT TO THE BEDSIDE COMMODE, GOT FRESH WATER, TIDYED BED, CALL LIGHT WTIH IN REACH AND NOTHING ELSE NEEDED AT THIS TIME.
--- NOTE | 2025-01-03 20:48 | NUR ---
awake, alert and oriented to all except place. clear speeach, answers appropriately. On room air. lungs dim at bases. no cough, denies SOB with exertion and not noted when turning and repositioning. HOB elevated to 30o. Aspiration precautions in place. nasl tube feeding in place R nare. infusing Jevity at 40cc. Residul was 20. flushed with 100cc water as per orders. took po mds and tolerated clear fluids well, no cough afterwards. SL LA, PICC line JAMES. patent. LIPIDS?TPN infusing w/o problems. bruising arms and legs improving. pure wick changed. small amount of clear yellow urine reilly care done. attends in place. lidocaine patch removed form kristyn. abd soft, mandeep, had a bm this am. midline incision healilng. no c/o pain. legs elevated with pillows. tolerated being turned and repositioned w/o problems. pleasant and cooperative
[2025-01-03] MEDS ORDERED: PHENAZOPYRIDINE HCL 100 MG TAB PO SCH (21:00)
--- NOTE | 2025-01-03 23:26 | NUR ---
AWAKE, PLAYING WITH IPAD, PURE WICH IN PLACE, R FEEDING TUBE PATENT.
[2025-01-04] VITALS (7 sets, daily range): BP systolic 128–157; BP diastolic 52–59
--- NOTE | 2025-01-04 00:06 | NUR ---
PT SHOUTING OUT IN ROOM. SUPERINTENDENT MENAGERIE IN ROOM AND PT STATED NEED TO HAVE BM. SUPERINTENDENT MENAGERIE 1PA PIVOT TO BSC. PT HAD BM AND ASSISTED BACK TO BED. PUREWICK PLACED. PT STATES NO FURTHER NEEDS AT THIS TIME. CALL LIGHT WITHIN REACH AND BED ALARM ON.
--- NOTE | 2025-01-04 01:01 | NUR ---
Resting, eyes closed. R nare feeding tube patent, infusing, flushed as per orders w/o problems. no s/sx aspirations. TPN/Lipids infusing.
--- NOTE | 2025-01-04 02:29 | NUR ---
awake, up to bsc, voided and had a bright yello-orange colored smer of bm. Back to bed, required several cues, unsteady, 1PA. Back to bed, tolerared fair, sob noted with this exertion. no c/o pain. On room air, no changes in lungs sounds. R tube feeding increaesd to 50cc, residual prior to was less than 20cc. tolerating fresh fluids well. no n/v or cough after drinking. CBG 133. Repositioned in bed, legs elevated. RPICC line patent lipids and TPN infusing. pure wick in place
--- NOTE | 2025-01-04 03:06 | NUR ---
CALL LIGHT ANSWERED. PT NEEDED TO USE BATHROOM. MACHINE FILLER 1PA PIVOT TO BSC. PT VOIDED AND HAD SMALL BM. PT ASSISTED BACK TO BED. NEW BRIEF AND PUREWICK PLACED. PT STATES NO FURTHER NEEDS AT THIS TIME. CALL LIGHT WITHIN REACH AND BED ALARM ON.
--- NOTE | 2025-01-04 04:22 | NUR ---
awake, feeding tube flusehd as per orders, zero residual prior to flushes. TF infusing Jevity 1.2 aleida at 50ml/hr. tolerating very well. no c/o pain
--- NOTE | 2025-01-04 06:07 | NUR ---
c/o pain not relieved by Tylenol. Medicated with Tylenol
--- NOTE | 2025-01-04 06:21 | NUR ---
Used call light, up to BSC, 1PA, voided and had a smear of bm. Unable to get back to bed. Required 2 person heavy assist. very unsteadu uncoordinated legs. unable to stand up. yamila toro at this time. Pt very resistive to information being given
--- NOTE | 2025-01-04 07:06 | NUR ---
VERBAL REPORT RECEIVED FROM JAYDA SOTOMAYOR. PT IS AWAKE AND ALERT, WATCHES TV, CALL LIGHT IN REACH, NO REQUESTS AT THIS TIME.
--- NOTE | 2025-01-04 08:28 | NUR ---
PATIENT NEEDED TO USE THE COMMODE AGAIN, TANISHA ASSITED TO BEDSIDE COMMODE AND BACK TO BED WITH ASSISTANCE FROM TANISHA RUSS. I GOT HER SET UP IN BED FOR BREAKFAST, SHE REFUSED TO GO TO HER CHAIR. I TIDYED HER ROOM, WASHED HER FACE, GOT HER A SHOWER CAP TO WASH HER HAIR. LOTIONED HER LEGS FOR HER, BRUSHED HER HAIR, NOW PATIENT IS RESTING IN BED WATCHING TV. CALL LIGHT WITH IN REACH AND NOTHING ELSE NEEDED AT THIS TIME.
[2025-01-04] MEDS ORDERED: PHENAZOPYRIDINE HCL 100 MG TAB PO SCH (09:00)
--- NOTE | 2025-01-04 09:17 | NUR ---
PATIENT NEEDED HELP TO THE COMMODE, RN EMILY HELPED GET PATIENT BACK TO BED. SUPERVISOR ALUMINUM FABRICATION CHARTED VITALS AND I&O'S, SON IN ROOM, CALL LIGHT WITH IN REACH AND NOTHING ELSE NEEDED AT THIS TIME.
--- NOTE | 2025-01-04 10:31 | NUR ---
PHYSICAL THERAPY INTO WORK WITH PT.
--- NOTE | 2025-01-04 10:57 | NUR ---
TUBE FEEDING INCREASED TO 60 ML/HR, HOB AT 30 DEGREES.
--- NOTE | 2025-01-04 11:18 | NUR ---
PATIENT IS IN BED, DAY CARE DIRECTOR JUST CHECKED BLOODSUGAR, I WAS TOLD I DIDNT NEED TO DO IT AT 8AM AND THE NEXT TIME TO TAKE IT IS AT 10AM BUT PHYSICAL THERAPY WAS IN HERE. I CHECKED THE COMPUTER AND IT SAID IT WAS SUPPOSED TO BE DONE AT 8AM, I TALKED TO JAYDA MOREL AND SHE SAID THAT WAS FINE AND TO JUST CHECK IT AFTER PATIENT WAS DONE WITH PT.
--- NOTE | 2025-01-04 12:08 | NUR ---
GOT REPORT FROM ADRIEL MONTELONGO.
--- NOTE | 2025-01-04 12:32 | NUR ---
VERBAL REPORT PROVIDED TO JAYDA MURDOCK. ALL QUESTIONS ANSWERED.
--- NOTE | 2025-01-04 13:26 | NUR ---
This nurse into patients room to help her to bedside commonde. SBA with tube help. Pt able to void 100cc, orange/yellow in color. No pain. Pt helped back in bed, warm blanket given. Pt advised to continue to push fluids. Pt had a few bites of her lunch and is still working on the ensure. Family at bedside. Medications running via IV. Call light within reach, bed in low position. Pt in good spirits.
--- NOTE | 2025-01-04 14:02 | NUR ---
PATIENT IS IN HER BED AT THIS TIME, LIP CUTTER CHARTED VITALS AND I&O'S, GOT FRESH ICE WATER, CALL LIGHT WITH IN REACH AND NOTHING ELSE NEEDED AT THIS TIME.
--- NOTE | 2025-01-04 14:23 | NUR ---
PATIENT UP TO USE THE RESTROOM. 1PA BEDSIDE COMMODE. PATIENT WAS A LITTLE UNBALANCED GETTING UP BUT DID BETTER GETTING BACK TO BED. FAMILY AT BEDSIDE. PATIENT EDUCATED AGAIN TO CONTINUE TO PUSH FLUIDS.
[2025-01-04] MEDS ORDERED: IBLOOD GLUCOSE TEST STRIP 1 EA TEST XX SCH (16:00)
--- NOTE | 2025-01-04 16:00 | NUR ---
PATIENT FEEDING TUBE BAG CHANGED, 3 BOTTLES OF FEEDING PLACED IN NEW BAG. RESIDUAL WAS 20ML. FLUSHED TUBE WITH 100ML WATER. TOLERATED WELL. WARM BLANKET GIVEN. PATIENT RESTING.
--- NOTE | 2025-01-04 16:54 | NUR ---
THIS NURSE WALKED INTO HELP SANDWICH MACHINE OPERATOR AND GIVE PATIENT TYLENOL FOR HER HEADACHE. SON IN ROOM AND NOTICED HE TOLD HIS MOM(PT)THAT HER CHICKEN WAS READY TO EAT. THIS NURSE ADVISED FAMILY THAT PATIENT IS STILL ON FULL LIQUID AT THIS TIME. I GUESS PATIENT DID HAVE A FEW CITIZEN OF [place].
--- NOTE | 2025-01-04 17:27 | NUR ---
THIS RN GOES INTO ROOM IV PUMP ALARMING. TPN/LIPIDS COMPLETE. HEPARIN LOCKED AT THIS TIME TO RIGHT UPPER ARM. IV FLUIDS, FEEDING TUBE INTAKE DOCUMENTED. PT VISITING WITH FOOD CROPS FARM HAND AT THIS TIME. ALL PT CARE NEEDS MET, DENIES ANY OTHER NEEDS. CALL LIGHT IS WITHIN REACH.
--- NOTE | 2025-01-04 17:31 | NUR ---
PATIENT IS IN BED AT THIS TIME, SHE IS GETTING MORE CONFUSED, RN NOTIFIED, SOCIAL WORK SPECIALIST CHARTED VITALS AND I&O'S, CALL LIGHT WITH IN REACH AND NOTHING ELSE NEEDED AT THIS TIME.
--- NOTE | 2025-01-04 18:53 | NUR ---
PT HAS BEEN HAVING LOOSE STOOL, INFORMED. AT THIS TIME, HOLD OFF ON DAIRY PRODUCTS FOR MEALS. LEAVE JEVITY 1.2 FEEDING AT 60ML/HR, WHICH IS THE CURRENT RATE FOR NOW. TELEPHONE ORDER FOR CDIFF R/O, AND ADD METAMUCIL TID. ORDERS INPUT PER MD TELEPHONE ORDERS. PT BACK INTO BED AFTER LOOSE STOOL, CALL LIGHT WITHIN REACH. WARM BLANKET PROVIDED. ALL PT CARE NEEDS MET AT THIS TIME.
--- NOTE | 2025-01-04 19:15 | NUR ---
RECEIVED REPORT FROM JAYDA KENNEDY. PT RESTING IN BED, TF INFUSING. DENIES NEEDS OR CONCERNS AT THIS TIME.
--- NOTE | 2025-01-04 19:16 | NUR ---
PATIENT LAYING IN BED. WHITE BOARD WAS UPDATED. WARM WASH CLOTH WAS REFUSED. PATIENTS CALL LIGHT IN REACH AND NO FURTHER NEEDS AT THIS TIME.
--- NOTE | 2025-01-04 20:00 | NUR ---
PATIENT LAYING IN BED. VITAL SIGNS WERE DONE. BATHROOM NEEDS WERE DENIED. BRIEF WAS CHECEDK AND WAS DRY. CALL LIGHT IN REACH AND NO FURTHER NEEDS AT THIS TIME.
--- NOTE | 2025-01-04 20:45 | NUR ---
PT RESTING IN BED. VSS. REPORTS RIGHT HIP PAIN 3/10, MEDICATED W/ PRN TRAMADOL. ORIENTED X 3, NOT DATE, AND FORGETFUL. BED ALARMS IN PLACE. LSC. HRR. BTA, ABD MILDLY DISTENDED AND SLIGHTLY TENDER. BTA. DIARRHEA CONTINUES. MIDLINE ABD INC W/ GLUE, WELL APPROXIMATED. ABD BINDER IN PLACE. KEOFEED TUBE TO RIGHT NARE INFUSING JEVITY AT 60MLS/HR. KEOFEED FLUSHED W/ 100MLS WATER. TF RESIDUAL 14MLS. PT ONLY ABLE TO TOLERATE 1/2 CUP OF ORDERED METAMUCIL. BG WNL @ 134. PT REPORTS ONGOING URINARY FREQUENCY BUT REPORTS DYSURIA IMPROVED. DISPOSIBLE BRIEF IN PLACE. JAMES PICC SINGLE LUMEN, DRSG CDI, HEPARIN LOCKED. LW SL WNL. PT UP TO BS W/ 1-2 ASSIST AND FWW, PT GETTING PROGRESSIVELY WEAKER W/ EACH TRIP TO BS. STOOL SAMPLE SENT TO LAB. CALL LIGHT WITHIN REACH.
[2025-01-04] MEDS ORDERED: PSYLLIUM SEED 1 PKT PACKET PO SCH (21:00)
--- NOTE | 2025-01-04 21:17 | NUR ---
PATIENT IS LAYING IN BED. PAIENT WAS PULLED UP IN BED BY THIS PERINATAL NURSE AND RN. PATIENTS CALL LIGHT IN REACH AND NO FURTHER NEEDS AT THIS TIME.
--- NOTE | 2025-01-04 22:30 | NUR ---
PT ASLEEP, APPEARS COMFORTABLE.
--- NOTE | 2025-01-04 23:30 | NUR ---
PT OOB TO BSC FOR VOID. POST VOID, PATIENT WEAK AND UNABLE TO STAND TO RETURN TO BED. PT REPORTS FEELING WEAK AND TIRED. PRIOR TOILETING PT REQUIRED MIN TO MOD ASSIST X1. PT TRANSFERRED TO BED WITH GAIT BELT AND MAX ASSIST X4. PERICARE PROVIDED, PUREWICK PLACED. SIDERAILS UP X3, CALL GARCIA IN REACH, BED IN LOW POSITION AND LOCKED.
--- NOTE | 2025-01-04 23:40 | NUR ---
PT AWAKE, REPORTS BEING EXHAUSTED AFTER DIFFICULT TRANSFER FROM BSC BACK TO BED. TF INFUSING, 100ML HYDRATION FLUSH COMPLETED. PUREWICK IN PLACE. CALL LIGHT WITHIN REACH.
[2025-01-05] VITALS (11 sets, daily range): BP systolic 119–159; BP diastolic 51–70
--- NOTE | 2025-01-05 01:00 | NUR ---
PATIENT IS LAYING IN BED. VITAL SIGNS AND I&OS WERE DONE. PATIENT EXPRESSED HAVING PAIN FROM A HEADACHE. JAYDA BRADLEY WAS INFORMED. PATIENTS CALL LIGHT IN REACH AND NO FURTHER NEEDS AT THIS TIME.
--- NOTE | 2025-01-05 02:30 | NUR ---
RESTING QUIETLY, APPEARS COMFORTABLE.
--- NOTE | 2025-01-05 04:49 | NUR ---
PT REPORTS INABILITY TO VOID W/ PUREWICK. UP TO BSC W/ KASSIE STEDY AND 2 ASSIST. PT UNABLE TO VOID BUT DRIBBLED WHEN STANDING UP. PVR OBTAINED-716cc IN BLADDER. WILL NOTIFY
--- NOTE | 2025-01-05 04:55 | NUR ---
DR. MCCULLOUGH NOTIFIED OF PVR 700+ cc. RECEIVED ORDER TO STRAIGHT CATH PRN X 3 PRN PVR >500cc AND BLADDERSCAN Q 6 HRS PRN INABILITY TO VOID.
[2025-01-05 05:17] LABS: BASOPHILS 0.8 % (0.1-1.2); EOSINOPHILS 5.6 % (0.7-5.8); LYMPHOCYTES 12.8 % (19.3-51.7); MCH 24.3 PG (25.6-32.2); MCHC 31.2 g/dL (32.2-35.5); MCV 77.9 fL (79.4-94.8); MONOCYTES 8.8 % (4.7-12.5); NEUTROPHILS 71.6 % (34.0-71.1); RBC 4.12 M/uL (3.93-5.22)
[2025-01-05 05:28] LABS: GLOMERULAR FILTRATION RATE,EST 87.0 mL/min (>60); UREA NITROGEN 28.0 mg/dL (7-18)
--- NOTE | 2025-01-05 05:34 | NUR ---
STRAIGHT CATH'D PT FOR 800cc BRIGHT ORANGE URINE. PT EXPRESSED RELIEF OF DISCOMFORT.
--- NOTE | 2025-01-05 05:52 | NUR ---
PATIENT LAYING IN BED. VITAL SIGNS AND I&OS WERE GOTTEN. WATER WAS REFILLED. THIS RETAIL WIRELESS SALES REPRESENTATIVE AND RN KIRK READJUSTED PATIENT IN BED. PATIENTS CALL LIGHT IS WITHIN REACH AND NO FURTHER NEEDS AT THIS TIME.
--- NOTE | 2025-01-05 07:33 | NUR ---
PT AWAKE AND INTERACTIVE AT TIME OF SHIFT REPORT, JUST RETURNS FROM BSC. BOWELS MOVED NO VOID. PT AGREES SHE IS COMFORTABLE, BUT STATES SHE IS TOO TIRED TO DO P/T TODAY.
--- NOTE | 2025-01-05 08:51 | NUR ---
PT UP TO BSC AGAIN UNABLE TO VOID. KASSIE-STEADY TO THE CHAIR. PT IN THE CHAIR FOR A SHORT TIME REQUESTS TO RETURN TO BED, PT ENCOURAGED TO STAY UP FOR A TIME. TV IS ON COLOR BOOKS IN REACH. CALL LIGHT IN LAP, FALL MAT PLACED
--- NOTE | 2025-01-05 09:14 | NUR ---
PATIENT CALLED TO USE BSC. PATIENT UP TO BSC, 2PA PIVOT TRANSFER. PATIENT THEN BACK TO CHAIR, 2PA PIVOT TRANSFER. WARM BLANKETS GIVEN. VITALS AND I&O'S DONE AND CHARTED. CHAIR ALARM ON. FALL MAT DOWN. CALL LIGHT IN REACH. NO FURTHER NEEDS AT THIS TIME.
--- NOTE | 2025-01-05 10:21 | NUR ---
PT CONTINUES UP IN THE CHAIR, ASKS TO RETURN TO BED ENCOURAGED TO STAY UP FOR A TIME. CALL LIGHT IN HER LAP
[2025-01-05] MEDS ORDERED: TAMSULOSIN HCL 0.4 MG CAP PT SCH (12:03)
--- NOTE | 2025-01-05 13:22 | NUR ---
PATIENT UP TO BSC AND BACK TO BED, 2PA PIVOT TRANSFER. VITALS AND I&O'S DONE AND CHARTED. WARM BLANKET GIVEN. CALL LIGHT IN REACH. NO FURTHER NEEDS AT THIS TIME. BED ALARM ON.
--- NOTE | 2025-01-05 13:52 | NUR ---
PT UP TO THNE TOILET SEVERAL TIMES THIS SHIFT PASSING SMALL AMOUNTS OF URINE THEN RETURNING TO BED. PT REFUSES CHAIR WANTS BLINDS PULLED STATES SHE IS GOING TO NAP
--- NOTE | 2025-01-05 15:26 | NUR ---
AFTER 2 TRANSFERS USING KASSIE STEADY FOR SAFETY PT REQUESTS 2PA STATES SHE FEELS STRONG ENOUGH TO TRANSFER. PT TRANSFERS VERY WELL NO KNEE BUCKLE APPEARS STEADY AND STRONGER THAN THOUGHT. PT REFUSED P/T THIS MORNING CONTINUES TO REQUEST BLINDS CLOSED AND WANTING TO NAP. ENCOURAGED UP TO THE CHAIR EDUCATION PROVIDED PT CONTINUES TO RESIST DESPITE VERBALIZING UNDERSTANDING.
--- NOTE | 2025-01-05 17:19 | NUR ---
PATIENT CALLED TO USE BSC. PATIENT UP TO BSC AND BACK TO BED 1PA FWW PIVOT TRANSFER. VITALS AND I&O'S DONE AND CHARTED. BED ALARM ON. CALL LIGHT IN REACH. NO FURTHER NEEDS AT THIS TIME
--- NOTE | 2025-01-05 17:19 | NUR ---
PT HAS TRANSFERRED TO BSC SEVERAL TIMES THIS SHIFT NO BUCKLING OR ISSUES WITH HER TRANSFER. SITTING UP IN BED WITH SALMON FOR EVENING MEAL SHE IS EATING BITES OF IT DENIES NEED OF DIFFERENT ITEMS
--- NOTE | 2025-01-05 19:20 | NUR ---
GOT REPORT FROM DAYSHIFT NURSE.
--- NOTE | 2025-01-05 19:52 | NUR ---
INTO CHECK ON PATIENT. WARM BLANKET GIVEN. PATIENT DENIES NEEDING ANYTHING. ROOM CLEANED UP. FEEDING TUBE RUNNING AT 60. PATIENT CURRENTLY ON ROOMAIR. NO FAMILY IN ROOM AT THIS TIME. PATIENT HAS TV ON. PATIENT STATES SHE WILL NEED TWO PEOPLE TO HELP HER GET UP TO THE RESTROOM NOW SHE GETS WEAK AT BEDTIME. PICC IS HEPARIN LOCKED.
--- NOTE | 2025-01-05 21:22 | NUR ---
PATIENT UP AT BEDSIDE COMMODE WITH PASTE MAKER. PICC LINE HEPRIN LOCKED. MEDICATIONS GIVEN. PATIENT HAS FEEDING TUBE RUNNING. PATIENT ON RA. PATIENT IS READY FOR BED. BED IN LOW POSITION. CALL LIGHT WITHIN REACH.
--- NOTE | 2025-01-05 21:33 | NUR ---
PER DOCTOR, PATIENT WILL REMAIN AT 60 ON HER FEEDING TUBE.
--- NOTE | 2025-01-05 22:57 | NUR ---
PATIENT CURRENTLY SLEEPING, HOB ELEVATED. REGULAR RESPIRATIONS NOTED.
--- NOTE | 2025-01-05 23:09 | NUR ---
PATIENT CALLS NURSE INTO ROOM SHE IS HAVING A TERRIBLE HEADACHE. PATIENT GIVEN TYLENOL AND A COLD WASH CLOTH TO HER FORHEAD. FEEDING TUBE FLUSHED AND CURRENTLY RUNNING. PILLOWS PLACED UNDER KNEES.
--- NOTE | 2025-01-05 23:25 | NUR ---
PATIENT UP TO BEDSIDE COMMONDE WITH 2 NURSES. SHE GOT VERY WEAK ONCE STANDING AND HAD TO SIT DOWN AGAIN. BED HARRIS USED PATIENT DOES NOT PUREWICK. PATIENT UNABLE TO GO. PT C/O RIGHT HIP PAIN, PATIENT TURNED ONTO HER LEFT HIP AND PILLOW PLACED UNDER HER RIGHT HIP, PILLOW BETWEEN LEGS. PATIENT COVERED WITH BLANKETS AND THANKFUL FOR THE HELP.
[2025-01-06] VITALS (8 sets, daily range): BP systolic 104–150; BP diastolic 45–87
--- NOTE | 2025-01-06 00:30 | NUR ---
RECEIVED REPORT FROM COLLETTE. UPON ASSESSMENT, PT STATES SHE IS HAVING HEADACHE. VS STABLE, NO FEVER, REPORTS HEADACHE 10/10 DESPITE JUST GETTING TYLENOL. PRN TRAMADOL GIVEN - SEE AUG. DID CRUSH IT WITH PUDDING RECEIVED REPORT THAT PATIENT DIDNT DO WELL WITH THE 2ND TYLENOL PILL THIS EVENING. PT TOLERATED ORAL MEDS JUST FINE. TUBE FEEDING RUNNING AT 60ML/HR AT THIS TIME. LS CLEAR, ABDOMEN BT+, NO NAUSEA. READJUSTED PATIENT IN THE BED AT THIS TIME. CALL LIGHT WITHIN REACH, BED ALARM IN PLACE.
--- NOTE | 2025-01-06 01:50 | NUR ---
PT HAS HAD X3 BOWEL MOVEMENTS, VERY LOOSE/WATERY. 1 INCONTINENT/2 ON THE BEDPAIN. PT NG TUBE PAUSED DURING THIS TIME FOR SAFETY PT HEAD HAS BEEN LOWERED TO ASSIST WITH COMPLETE BED CHANGE, TURNING. PT STATES SHE NEEDS TO VOID BUT HAS ONLY PEED A SCANT AMOUNT IN PUREWICK, WHICH WAS APPLIED SHORTLY FOR PATIENT, PT DOES NOT LIKE THE FEEL OF THE PUREWICK SO REQUESTS NOT TO USE IT. MIDLINE INCISION HEALING, ABDOMINAL BINDER INPLACE. PT HEADACHE SEEMS TO BE IMPROVING WITH THE TRAMADOL. PAIN CURRENTLY 8/10 AND NOT SO SHARP. CALL LIGHT WITHIN REACH, FEEDING TUBES HAVE BEEN RESTARTED AT THIS TIME. WILL CONTINUE TO MONITOR. BED ALARM IN PLACE FOR SAFETY.
--- NOTE | 2025-01-06 02:39 | NUR ---
THIS RN ATTEMPTED ST CATHETER X2, WITHOUT SUCCESS. PATIENT BARES DOWN AND RESISTS CATHETER. INSPECTOR RAG SORTING PRESENT IN ROOM. ANOTHER RN - ASSISTED WITH CATHETER PLACEMENT DUE TO DIFFICULTY. BLADDER SCAN SHOWED 804ML, UPON INSERTION 850ML DRAINED, PT IS TAKING PYRIDIUM TODAY SO URINE IS ORANGE TINGED. TUBE FEEDINGS RESTARTED. HOB >30 DEGREES. LIGHT TURNED DOWN, CALL LIGHT WITHIN REACH. ALL PT CARE NEEDS MET.
--- NOTE | 2025-01-06 03:41 | NUR ---
PT RESTING IN BED AT THIS TIME, EYES CLOSED AND SNORING. CALL LIGHT WITHIN REACH. PT LEFT TO SLEEP.
--- NOTE | 2025-01-06 06:22 | NUR ---
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 INFORMED WHEN WE WERE ATTEMPTING STRAIGHT CATH THIS MORNING PATIENT DID HAVE SOME WHITE DISCHARGE PRESENT, WAS VERY RED/TENDER WELL. WOLFE WAS PLACED PATIENT WAS VERY DIFFICULT TO STRAIGHT CATH AND REQUIRED MULTIPLE ATTEMPTS AND NURSES TO SUCCESSFULLY PLACE WOLFE FOR RETENTION FOR 804ML IN BLADDER. PT VERBALIZED SHE NEEDED TO PEE BUT WAS UNSUCCESSFUL MULTIPLE TIMES. MD AGREES WITH WOLFE TO REMAIN IN PLACE AT THIS TIME AND WILL REVIEW MEDICATION REGIMEN FOR FUNGAL INFECTION IN URINE.
--- NOTE | 2025-01-06 07:00 | NUR ---
PT REQUESTED VISIT. PT IN OVERALL GOOD SPIRITS, AWARE OF SURROUNDINGS, APPROPRIATE CONVERSATION. NO IMMEDIATE NEEDS. WAITER PROVIDED SUPPORTIVE PRESENCE, HOSPITALITY, PRAYER, FACILITATED INTERACTION WITH THERAPY ANIMAL. PT EXPRESSED GRATITUDE, HOPE.
--- NOTE | 2025-01-06 07:20 | NUR ---
Progress notes, labs faxed to [facility] the [facility] as requested.
--- NOTE | 2025-01-06 07:37 | NUR ---
MORNING ASSESSMENT IS COMPLETE. PO CARAFATE GIVEN, PO TYLENOL GIVEN FOR 8/10 HEADACHE. PATIENT IS SITTING UP IN BED, MUCH SHE CAN TOLERATE. NG FEEDING TUBE IS INTACT WITH 60ML/HR CONTINUOUS FEEDINGS WITH JEVITY 1.2. PATIENT DENIES NAUSEA, REFUSES SCD'S, ICE WATER REFILLED. NO OTHER NEEDS AT THIS TIME.
[2025-01-06] MEDS ORDERED: FLUCONAZOLE 200 MG TAB PO SCH (09:00)
[2025-01-06 09:02] LABS: BASOPHILS 0.9 % (0.1-1.2); EOSINOPHILS 3.4 % (0.7-5.8); LYMPHOCYTES 15.6 % (19.3-51.7); MCH 24.9 PG (25.6-32.2); MCHC 31.9 g/dL (32.2-35.5); MCV 78.0 fL (79.4-94.8); MONOCYTES 10.2 % (4.7-12.5); NEUTROPHILS 69.5 % (34.0-71.1); RBC 3.86 M/uL (3.93-5.22)
[2025-01-06 09:16] LABS: GLOMERULAR FILTRATION RATE,EST 88.0 mL/min (>60); UREA NITROGEN 18.0 mg/dL (7-18)
--- NOTE | 2025-01-06 09:30 | NUR ---
PT SITTING UPRIGHT IN BED. EYES OPEN, CHEST RISE EQUAL AND UNLABORED. SCHEDULED MEDICATIONS GIVEN. PATIENT REPORTS 6/10 HEAD/NECK PAIN. PATIENT DENIES FURTHER CONCERNS AT THIS TIME. CALL LIGHT AND PERSONAL BELONGINGS IN REACH.
--- NOTE | 2025-01-06 10:30 | NUR ---
Notified by [facility] the [facility], they will not have a bed open this week. I also spoke with Christal at [facility], they are reviewing the chart. I texted [facility] and Niya requested nurses notes and updated emar. All were faxed. Elizabeth at [facility] called and requested notes.
--- NOTE | 2025-01-06 10:46 | NUR ---
PATIENT GIVEN 0900 MEDICATIONS, NO OTHER NEEDS AT THIS TIME.
--- NOTE | 2025-01-06 12:08 | NUR ---
PATIENT GIVEN ULTRAM FOR HEADACHE.
--- NOTE | 2025-01-06 12:30 | NUR ---
Spoke with Melodie. Updated I have contaced FERNANDO, An[facility]bal at the [facility]. They have cont. to review her chart and request further info. Aníbal at the [facility] did call and say they will not have a bed open. I reassured them, I will let them know as soon as I have a confirmation from anyone.
--- NOTE | 2025-01-06 12:48 | NUR ---
PATIENT IS RESTING IN BED, 2 CANS OF JEVITY TO FEEDING TUBE BAG. FEEDING PUMP CLEARED FOR 532
--- NOTE | 2025-01-06 13:45 | NUR ---
MEDS GIVEN, PATIENT IS GOING TO TAKE ONE HOUR NAP AND THEN WORK WITH PT.
--- NOTE | 2025-01-06 14:00 | NUR ---
Spoke with Elizabeth, she did not received notes. We discussed this pt and what her length of stay would be. I updated, I have also been working with Niya at [facility]. Elizabeth did say, they have worked with [facility] in the past. When the pt uses their days at a SNF, but require further rehab, they have been able to accept pts from the SNF. I called Niya and left a message with this update.
--- NOTE | 2025-01-06 15:15 | NUR ---
Notified by [facility] they cannot accept this pt. They have concerns for the NG feeding tube, which they do not use in the SNF, concerns for her mental health, and new cancer diagnosis. I called [facility], they also will decline for the above reasons. Aníbal at the [facility] also declined this patient at this time. [facility] did not decline, but are not accepting at this time. I faxed the chart [facility] as they have been know to take higher level of care pts. Admission people were gone, so I will fu tomorrow. Updated Mi and her son. Both still are in agreement they do not want to go to [facility] or to [facility] in [place].
--- NOTE | 2025-01-06 15:44 | NUR ---
PT/OT IN TO WORK WITH PATIENT. PATIENT GIVEN PO AFTERNOON MEDS.
--- NOTE | 2025-01-06 16:23 | NUR ---
ABDOMINAL BINDER OFF. PT/OT IN TO WORK WITH PATIENT, PATIENT BECAME DIZZY WITH SITTING AT BEDSIDE AND WAS PLACED BACK IN BED. DISCUSSES WITH THERAPY, PATIENT'S POOR APPETITE VS TUBE FEEDS. DR. KNOWLES IN TO SEE PATIENT AND TALK WITH FAMILY.
--- NOTE | 2025-01-06 16:34 | NUR ---
PATIENT GIVEN TYLENOL FOR 7/10 HEADACHE.
--- NOTE | 2025-01-06 17:46 | NUR ---
PATIENT AWAKE, SITTING UPRIGHT IN BED AND EATING WITH HEAD OF BED RAISED. EYES OPEN, CHEST RISE EQUAL AND UNLABORED. CALL LIGHT AND PERSONAL BELONGINGS IN REACH. SON IN ROOM WITH PATIENT AND IS ENCOURAGING PT TO EAT. PATIENT AND SON DENY CONCERNS AT THIS TIME.
--- NOTE | 2025-01-06 19:21 | NUR ---
RECEIVED REPORT FROM MOE DURHAM. PT SLEEPING WIHT EYES CLOSED, RESP EVEN/UNLABORED. ALLOWED TO SLEEP. CALL LIGHT WITHIN REACH. BED ALARM IN PLACE FOR SAFETY. NG FEEDINGS IN PLACE AND RUNNING AT 60ML/HR. CLEARED FEEDING PUMP INTAKE, DOCUMENTED. ALL PT CARE NEEDS MET AT THIS TIME.
[2025-01-06] MEDS ORDERED: LANSOPRAZOLE 30 MG TABDIS PT SCH (21:00)
[2025-01-06] MEDS ORDERED: NON-FORMULARY MEDICATION ORDER PT SCH (22:00)
--- NOTE | 2025-01-06 22:00 | NUR ---
V/S AND I&O'S COMPLETED AND RECORDED. WOLFE CARE DONE.
[2025-01-06] MEDS ORDERED: SUCRALFATE ONE (22:05)
--- NOTE | 2025-01-06 22:15 | NUR ---
PT MEDICATIONS GIVEN. PT REQUESTING SOMETHING FOR HEADACHE REPORTS 01/09, PRN ULTRAM GIVEN - SEE MAR. FLUSHED NG WITH 100ML WATER, PT TOLERATED ORAL PILLS IN PUDDING. WOLFE CATHETER CARE COMPLETED BY TANISHA WHILE THIS RN IN ROOM. PICC HEPARIN LOCKED - FLUSHES/DRAWS BLOOD WITHOUT ANY ISSUES, DRESSING INTACT. NG CURRENTLY RUNNING AT 60ML/HR ORDERED. PT REFUSED THE METAMUCIL THIS EVENING, REALLY EDUCATED HER THAT SHE NEEDS THIS AND SHE AGREES TO TAKE IT TOMORROW MORNING, HELP BULK UP STOOL. ALL PT CARE NEEDS MET, LIGHT TURNED DOWN, FRESH ICE WATER PROVIDED. CALL LIGHT WITHIN REACH.
[2025-01-07] VITALS (8 sets, daily range): BP systolic 103–135; BP diastolic 46–55
--- NOTE | 2025-01-07 02:22 | NUR ---
MEDS GIVEN - SEE MAR. NG TUBE FLUSHED WITH WATER - 100ML. DOCUMENTED INTAKE. PT BOOSTED UP IN BED. DENIES ANY OTHER NEEDS AT THIS TIME. CALL LIGHT WITHIN REACH.
--- NOTE | 2025-01-07 04:13 | NUR ---
PT RESTING IN BED, EYES CLOSED, DID NOT WAKEN WHEN ENTERED ROOM. RESP EVEN/UNLABORED, PT ALLOWED TO SLEEP. CALL LIGHT WITHIN REACH.
--- NOTE | 2025-01-07 05:22 | NUR ---
SOURCING SPECIALIST IN ROOM FOR VS AFTER pt USES CALL LIGHT LETTING HER KNOW SHE'S AWAKE. TUBE FEEDING COMPLETE. NEW TUBING PRIMED AND CONNECTED. FREE WATER FLUSH PER ORDERS. pt COMPLAINS OF 5/10 MACIAS. PRN TYLENOL ADMINISTERED. COFFEE PROVIDED. CALL LIGHT IN REACH.
[2025-01-07 05:50] LABS: MCH 24.1 PG (25.6-32.2); MCHC 30.7 g/dL (32.2-35.5); MCV 78.7 fL (79.4-94.8); RBC 3.81 M/uL (3.93-5.22)
--- NOTE | 2025-01-07 05:51 | NUR ---
PT RESIDUALS THIS MORNING WAS 220ML, AT THIS TIME, DISCARDED RESIDUAL AMOUNT AND HOLDING TUBE FEEDING X1 HOUR. WILL RESTART TUBE FEEDING AT 0650. PT UNDERSTANDS.
[2025-01-07 05:59] LABS: GLOMERULAR FILTRATION RATE,EST 80.0 mL/min (>60); UREA NITROGEN 22.0 mg/dL (7-18)
[2025-01-07 06:08] LABS: BANDS, MANUAL DIFF 3; BASOPHILS, MANUAL DIFF 1; EOSINOPHILS, MANUAL DIFF 6; LYMPHOCYTES, MANUAL DIFF 17; MONOCYTES, MANUAL DIFF 5; NEUTROPHILS, MANUAL DIFF 68
--- NOTE | 2025-01-07 06:39 | NUR ---
PT ASSISTED UP TO BATHROOM WITH FWW/1PA, PT WAS STEADY, DENIES DIZZINESS WITH AMBULATION. LOOSE STOOL, DARK COLORED. PT STATES SHE HAS BEEN HAVING DIARRHEA RECENTLY, NOT NEW. PT BACK IN BED, IV FLUIDS INFUSING, BED ALARM BACK IN PLACE. PT DID NOT WANT TO PERFORM ORAL CARE AT THIS TIME, WANTED TO GO BACK TO SLEEP. CALL LGIGHT WITHIN REACH.
--- NOTE | 2025-01-07 06:50 | NUR ---
TUBE FEEDING OF JEVITY 1.2 RESTARTED NOW AT 60ML/HR. NEXT CHECK FOR RESIDUAL IS AT 1100, WHICH WOULD BE 6HRS POST LAST CHECK. PT NEED TO TURN HEAD TO HELP WITH RESIDUAL CHECK LINE GETS KINKED EASILY. PT DENIES ANY GI ISSUES, NO LOOSE STOOL THROUGHOUT NIGHT. CALL LIGHT WITHIN REACH, DENIES ANY NEEDS, WOULD LIKE TO "GET ANOTHER CAT NAP". LIGHTS OFF AND PT ALLOWED TO REST.
--- NOTE | 2025-01-07 07:33 | NUR ---
REPORT RECEIVED FROM JAYDA KENNEDY. SON IN ROOM.
--- NOTE | 2025-01-07 08:19 | NUR ---
Updated notes faxed to Aida at [facility].
--- NOTE | 2025-01-07 08:50 | NUR ---
Called Aida at [facility]. She and DNS are reviewing pts chart. I then contacted Meme at [facility] in [place], [place]. Meme did not receive the fax. I added notes from yesterday and faxed the chart again.
--- NOTE | 2025-01-07 09:26 | NUR ---
PATIENT IS CURRENTLY SITTING UP IN BED WITH JAYDA DONALDSON IN THE ROOM DOING ASSESSMENT. I&O DOCUMENTED BY THIS CABLE WAY OPERATOR. RN IS GOING TO GET THE PATIENT INTO THE CHAIR, HELP WAS OFFERED BUT DECLINED.
--- NOTE | 2025-01-07 09:30 | NUR ---
ADMINISTERED MORNING MEDS. PT ATE HALF OF THE SCRAMBLED EGG DISH AND SOME OF THE OATMEAL. HEP LOCKED PICC LINE, BLOOD RETURN WAS HUTCHINS. REMOVED PERIPHERAL LINE WO DIFF. PT ASSISTED 1P FWW TO CHAIR. TOLERATED WELL. PT STATES SHE SLEPT WELL LAST NIGHT.
--- NOTE | 2025-01-07 09:57 | NUR ---
PT SITTING UPRIGHT IN CHAIR WITH FAMILY MEMBERS PRESENT. ASSESSMENT COMPLETE AND MEDICATIONS GIVEN, PATIENT TOLERATED WELL. CALL LIGHT AND PERSONAL BELONGING IN REACH. PATIENT DENIES CONCERNS AT THIS TIME.
--- NOTE | 2025-01-07 11:47 | NUR ---
Received a call from pts son, William. He is upset as he has traveled to [place] to view Opal. He spoke with staff and states he was not aware I had faxed the chart. He did not want the chart faxed until it could be documented the pt was eating. He was speaking with staff in the hospital and had requested the feedings be held. I let him know there was documentation from Dr. Reyes this had been discussed, but he did ot change the orders. Son cont. to believe mom could go to the SNFs in [place] if she doesn't have the NG feeding tube. I reminded him, there were more issues than the feeding tube. Once the SNFS have declined, it is a No. He cont. to repeat I should have not sent the chart. I then let him know, this is not how this works. His mom is of sound mind. I spoke with her and Yuan yesterday and they were in agreement. He again is stating I should have waited to send the chart. I then let him know I have to be upfront and honest about the patients condition. I will not lie or hide information. I then let him know I feel he is trying to circumvent the system. I again let him know the chart was sent at his mom's requests as she cannot go home at this time. I then ended the conversation. I then updated the charge nurse. She gave an update, Dr. Reyes had called and has ordered the Ng pulled. Son called and let them know he was not giving permission to pull the NG. They let him know it is up to the pt.
--- NOTE | 2025-01-07 12:07 | NUR ---
REMOVED FEEDING TUBE PER DR HOYOS. PT TOLERATED WELL AND STATED SHE WAS EXCITED. VISITOR IN ROOM. DR KELLY IN ROOM TO CHECK ON PT. INGREDIENT SCALER IN ROOM TO SPEAK WITH PT. SON CALLED DURING REMOVAL AND EXPRESSED HIS DISMAY TO TUBE COMING OUT.
--- NOTE | 2025-01-07 14:00 | NUR ---
Message from Aida at [facility]. She can accept this pt. I went and spoke with Deborah. Bolden her SO is the room. The are concerned the SNF is [place] away. I let them know, I have not heard from [facility]. I can wait a short time to call MARCELLA. I will call Meme at [facility] and update the NG has been pulled. I called Meme and she will update their team and call me back.
--- NOTE | 2025-01-07 14:20 | NUR ---
PT UP IN CHAIR. BOYFRIEND AND FRIEND IN ROOM. FEELS MUCH BETTERWITH THE TUBE OUT.
--- NOTE | 2025-01-07 14:46 | NUR ---
Received a call from Meme at [facility] their DNS would like to have a face eval by phone. Let her know I can call or zoom in. She gave me the number and I will assist the pt to call her.
--- NOTE | 2025-01-07 14:55 | NUR ---
Pt was able to speak with SUMAYA Adkins for [facility] by phone. She agreed to accept the pt tomorrow or the next day. I will contact Dr. Reyes to confirm dc. Per hospitalist, pt is ready for dc. Called and left a message for Dr. Reyes and left update. Requested a return call.
--- NOTE | 2025-01-07 16:28 | NUR ---
PT REQUESTED TO BE LEFT ALONE FOR AWHILE TO NAP. SON IN ROOM.
--- NOTE | 2025-01-07 16:45 | NUR ---
SNF orders and med orders left a nurses station for Dr. Reyes and Dr. Dockery to complete. Meme from [facility] called and they would like the pt to arrive by 11:[address] Reyes agrees to dc. I will contact her in the am as she is leaving shortly.
--- NOTE | 2025-01-07 18:27 | NUR ---
PT ATE SOME OF DINNER. GIVEN A MILKSHAKE ENSURE. SON JUST LEFT. DENIES CONCERNS.
--- NOTE | 2025-01-07 18:35 | NUR ---
BED BATH COMPLETE. LA/CATHETER CARE DONE. PATIENT REQUESTED THEIR HEAD RAISED AND MAGAZINES WITHIN REACH. THEY REPORTED HAVING A HEADACHE, JAYDA DONALDSON NOTIFIED.
--- NOTE | 2025-01-07 18:42 | NUR ---
SPOKE WITH PT REGARDING MOVE TOMORROW. SHE IS NERVOUS. ASKED FOR TRAMADOL.
--- NOTE | 2025-01-07 19:20 | NUR ---
RECEIVED REPORT FROM JAYDA DONALDSON. PT RESTING IN BED, REPORTS ONGOING HEADACHE BUT DENIES ANY NEEDS OR CONCERNS AT THIS TIME. CALL LIGHT WITHIN REACH.
--- NOTE | 2025-01-07 21:00 | NUR ---
PT RESTING IN BED. REPORTS ONGOING HEADACHE 01/09-PRN TYLENOL ADMINISTERED. A&OX3, NOT DATE. LSC. HRR. BTA. PT HAS ABD BINDER IN PLACE. REPORTS LBM TODAY. MIDLINE ABD INC WELL APPROXIMATED W/ SKIN GLUE IN PLACE. WOLFE CATH W/ CLEAR YELLOW URINE. JAMES PICC, SINGLE LUMEN-HEP LOCKED. PT UP TO EOB W/ MIN ASSIST. SCD'S OFF FOR NOW. CALL LIGHT WITHIN REACH.
--- NOTE | 2025-01-07 21:38 | NUR ---
WOLFE CARE DONE.
--- NOTE | 2025-01-07 22:42 | NUR ---
PT APPEARS ASLEEP, EYE MASK IN PLACE.
--- NOTE | 2025-01-08 00:36 | NUR ---
SLEEPING SOUNDLY, APPEARS COMFORTABLE.
--- NOTE | 2025-01-08 02:43 | NUR ---
PT SLEEPING SOUNDLY. APPEARS COMFORTABLE.
--- NOTE | 2025-01-08 05:01 | NUR ---
SLEEPING SOUNDLY. APPEARS COMFORTABLE.
--- NOTE | 2025-01-08 05:05 | NUR ---
DX: 12/21 OPEN PARTIAL COLECTOMY. 01/02 EGD. POST-OP DELIRIUM. KEOFEED TUBE DC'D 01/07. PT TOLERATING SOFT DIET. SLEP WELL OVERNIGHT. WOLFE CATH IN PLACE-WILL D/C WITH. JAMES PICC LINE SINGLE LUMEN. ABD BINDER IN PLACE. PLAN D/C TODAY TO [facility] IN [place].
[2025-01-08 05:39] LABS: BASOPHILS 1.1 % (0.1-1.2); EOSINOPHILS 7.8 % (0.7-5.8); LYMPHOCYTES 25.8 % (19.3-51.7); MCH 24.6 PG (25.6-32.2); MCHC 31.2 g/dL (32.2-35.5); MCV 78.7 fL (79.4-94.8); MONOCYTES 11.2 % (4.7-12.5); NEUTROPHILS 53.8 % (34.0-71.1); RBC 3.62 M/uL (3.93-5.22)
--- NOTE | 2025-01-08 05:39 | NUR ---
LABS DRAWN FROM PICC LINE. CHG WIPE DOWN FOR PICC LINE COMPLETED. PT PULLED UP IN BED PER REQUEST. PT REPORTS HAVING SLEPT WELL OVERNIGHT.
[2025-01-08 05:43] VITALS: BP 114/47
[2025-01-08 05:48] VITALS: BP 114/47
[2025-01-08 05:57] LABS: GLOMERULAR FILTRATION RATE,EST 74.0 mL/min (>60); UREA NITROGEN 25.0 mg/dL (7-18)
--- NOTE | 2025-01-08 07:10 | NUR ---
Called Dr. Reyes. He will be in surgery shortly. Orders to DS and Dr. Reyes completed. He will complete a DC summary when he finished with this procedure. Dr. Dockery the hospitalist will complete the medication orders. I called Meme at [facility] and faxed the SNF orders and PAS[facility], Pt was marked as pt with [facility]. I called the [phone] [facility] number and left a message where pt is going and pts name. I asked Meme if she would like the PICC line left or dcd and she requested our staff to dc. Charge nurse updated.
--- NOTE | 2025-01-08 07:10 | NUR ---
REPORT RECEIVED FROM JAYDA BRADLEY. PATIENT RESTING IN BED AND DENIES ANY PAIN ASIDE FROM "A SLIGHT HEADACHE". PATIENT REQUESTING COFFEE. FRESH COFFEE AND ICE WATER PROVIDED. PATIENT WITHOUT ANY FURTHER NEEDS AT THIS TIME. CALL LIGHT AND PERSONAL BELONGINGS ARE WITHIN REACH.
--- NOTE | 2025-01-08 08:40 | NUR ---
PATIENT PICC LINE REMOVED. PRESSURE DRESSING APPLIED. CATH TIP INTACT. 41CM NOTED WHEN LINE REMOVED. PATIENT EDUCATION COMPLETED.
--- NOTE | 2025-01-08 09:06 | NUR ---
PATIENT ASSESSMENT COMPLETED. PATIENT IS ALERT AND ORIENTED X4. VITAL SIGNS TAKEN AND ARE STABLE. CASUALTY CLAIM ADJUSTER IN ROOM TO HELP GET PATIENT BELONGINGS GATHERED AND PATIENT READY FOR DISCHARGE. PATIENT MEDICATED PER EMAR. CALL LIGHT AND PERSONAL BELONGINGS ARE WITHIN REACH.
[2025-01-08 09:16] VITALS: BP 121/54
[2025-01-08] MEDS ORDERED: FLUCONAZOLE200 MG PO (09:48)
[2025-01-08] MEDS ORDERED: TAMSULOSIN HCL0.4 MG PT (09:48)
[2025-01-08] MEDS ORDERED: LIDOCAINE PAIN1 EACH TD (09:50)
[2025-01-08] MEDS ORDERED: PROTONIX40 MG PO (09:51)
[2025-01-08] MEDS ORDERED: SUCRALFATE1 GM/10 ML PO (09:54)
[2025-01-08] MEDS ORDERED: METAMUCIL PACK3.4 GM PO (09:55)
[2025-01-08] MEDS ORDERED: DULOXETINE HCL30 MG PO (09:56)
[2025-01-08] MEDS ORDERED: AMITRIPTYLINE H50 MG PO (09:57)
[2025-01-08] MEDS ORDERED: TRAMADOL HCL50 MG PO (09:58)
[2025-01-08 10:08] VITALS: BP 121/54
--- NOTE | 2025-01-08 10:11 | NUR ---
PATIENT'S SON AT BEDSIDE AWAITING PATIENT DISCHARGE.
--- NOTE | 2025-01-08 10:14 | NUR ---
Med orders and DC summary were faxed to Meme at [facility] with note stating pt just left.
--- NOTE | 2025-01-08 11:04 | PATH ---
[facility] [address] [place], [place] [address] Signed SPECIMEN(S): A PROXIMAL STOMACH BIOPSY SPECIMEN SOURCE: A. PROXIMAL STOMACH BIOPSY CLINICAL HISTORY: Dysphagia, bile reflux gastritis, gastric and esophageal ulcers, also run C/O test as indicated FINAL PATHOLOGIC DIAGNOSIS: Proximal stomach, biopsies - Benign gastric mucosa with vascular congestion, negative for significant inflammation or intestinal metaplasia. AMB MICROSCOPIC EXAMINATION: Histologic sections of all submitted blocks are examined by light microscopy. These findings, together with the gross examination, support the pathologic diagnosis. GROSS DESCRIPTION: The specimen, labeled and designated "Borrego, proximal stomach biopsy," is received in formalin and consists of two hartman soft tissue fragments, ranging from 0.2-0.3 cm. Entirely submitted in (A1). VB (under the direct supervision of a pathologist) The Gross Description was prepared using a voice recognition system. The report was reviewed for accuracy; however, sound-alike word errors, addition and/or deletions may occur. If there is any question about this report, please contact Client Services. ADDITIONAL NOTES: Immunohistochemical and/or in situ hybridization studies if performed in this case included appropriate positive controls that reacted as expected. This test was developed and its performance characteristics determined by [facility]. It has not been cleared or approved by the U.S. Food and Drug Administration. The FDA has determined that such clearance or approval is not necessary. This test is used for clinical purposes. It should not be regarded as investigational or for research. [facility] is certified under the Clinical Laboratory Improvement Amendments of 1988 (CLIA) as qualified to perform high complexity clinical PATIENT NAME: KATERYNA BORREGO PATHOLOGY DATE OF : 47 REPORT #: [id number] PHYSICIAN: MIO POZO PCP: LAURA CLEANING PA-C REPORT IS CONFIDENTIAL AND NOT TO BE RELEASED WITHOUT AUTHORIZATION [facility] [address] [place] [address] [place], [place] [address] Signed laboratory testing. PERFORMING LABORATORY: Technical component was performed by [facility], [address] [place] [address] (CLIA# [id number]). Professional interpretation was performed by [facility] [address] [place] [id number] [id number] Diagnostician: Fabiola Dean MD Pathologist Electronically Signed 01/08/2025 Copies: ~ PATIENT NAME: KATERYNA BORREGO PATHOLOGY DATE OF : 47 REPORT #: [id number] PHYSICIAN: MIO POZO PCP: LAURA CLEANING PA-C REPORT IS CONFIDENTIAL AND NOT TO BE RELEASED WITHOUT AUTHORIZATION
--- NOTE | 2025-01-08 11:04 | NUR ---
REPORT CALLED TO GO AT [facility] AT THIS TIME. PATIENT DISCHARGED AT 1025
== END 2025-01-08 10:25 | disposition home or self-care (01) | DRG 330 ==
LOC: ED 10:14 → MS 10:16
PROVIDERS: Family Medicine; Student in an Organized Health Care Education/Training Program; Surgery; ADMIT Surgery; ATTEND Surgery
PROC: 30233N1 Transfusion of Nonautologous Red Blood Cells into Peripheral Vein, Percutaneous Approach (ICD-10-PCS; 2024-12-20)
PROC: 0DBL8ZX Excision of Transverse Colon, Via Natural or Artificial Opening Endoscopic, Diagnostic (ICD-10-PCS; 2024-12-20)
PROC: 0DTL0ZZ Resection of Transverse Colon, Open Approach (ICD-10-PCS; principal; 2024-12-21 08:00)
PROC: 02HV33Z Insertion of Infusion Device into Superior Vena Cava, Percutaneous Approach (ICD-10-PCS; 2024-12-27)
PROC: 0DB78ZX Excision of Stomach, Pylorus, Via Natural or Artificial Opening Endoscopic, Diagnostic (ICD-10-PCS; 2025-01-02)
PROC: 0DP08UZ Removal of Feeding Device from Upper Intestinal Tract, Via Natural or Artificial Opening Endoscopic (ICD-10-PCS; 2025-01-02)
PROC: 0DH68UZ Insertion of Feeding Device into Stomach, Via Natural or Artificial Opening Endoscopic (ICD-10-PCS; 2025-01-02)
PROC: 3E0G76Z Introduction of Nutritional Substance into Upper GI, Via Natural or Artificial Opening (ICD-10-PCS; 2025-01-02)
DX: C18.3 Malignant neoplasm of hepatic flexure (principal); B37.41 Candidal cystitis and urethritis; T83.511A Infection and inflammatory reaction due to indwelling urethral catheter, initial encounter; E46 Unspecified protein-calorie malnutrition; K57.20 Diverticulitis of large intestine with perforation and abscess without bleeding; F32.9 Major depressive disorder, single episode, unspecified; I10 Essential (primary) hypertension; F41.1 Generalized anxiety disorder; E78.5 Hyperlipidemia, unspecified; G89.29 Other chronic pain; Y83.8 Other surgical procedures as the cause of abnormal reaction of the patient, or of later complication, without mention of misadventure at the time of the procedure; E66.9 Obesity, unspecified; Z90.710 Acquired absence of both cervix and uterus; Z90.79 Acquired absence of other genital organ(s); Z90.722 Acquired absence of ovaries, bilateral; Z90.49 Acquired absence of other specified parts of digestive tract; Z98.890 Other specified postprocedural states; Z88.8 Allergy status to other drugs, medicaments and biological substances; Z88.5 Allergy status to narcotic agent; Z79.899 Other long term (current) drug therapy; R91.1 Solitary pulmonary nodule; N20.0 Calculus of kidney; K44.9 Diaphragmatic hernia without obstruction or gangrene; R45.1 Restlessness and agitation; R33.9 Retention of urine, unspecified; Z87.891 Personal history of nicotine dependence; F12.90 Cannabis use, unspecified, uncomplicated; D64.9 Anemia, unspecified
CPT/HCPCS: 00731; 00790; 00811; 36415; 36430; 36569; 36592; 51701; 51702; 51798; 64415; 70450; 71045; 74018; 74177; 74178; 76942; 80048; 80053; 80061; 81001; 82140; 82378; 82803; 83690; 83735; 84100; 84134; 84443; 84484; 85025; 85610; 85730; 86850; 86900; 86901; 86922; 87077; 87088; 88305; 88309; 88341; 88342; 92507; 92522; 92526; 93005; 93010; 94760; 94762; 94799; 96375; 96376; 97110; 97163; 97167; 97530; 97535; 99285-25; A9270; C1751; G0378; J0131; J0330; J0696; J0780; J1100; J1171; J1610; J1644; J1650; J1815; J1885; J1938; J2003; J2060; J2274; J2405; J2470; J2543; J2704; J2765; J2795; J3010; J3430; J3475; J3480; J3490; J7040; J7060; J7121; P9016; Q9967